=== PATIENT | female | born 1970 | race Caucasian/White ===

== ENCOUNTER → 2021-09-17 | Outpatient (CLI) | payer OTHER ==
[2021-09-17 14:37] LABS: Basophils # (A) 0.07 X 10*3/uL (0.00-0.10); Basophils % (A) 0.8 %; Eosinophils # (A) 0.22 X 10*3/uL (0.04-0.35); Eosinophils % (A) 2.5 %; HCT 46.2 % (37.2-46.3); Lymphocytes # (A) 2.96 X 10*3/uL (0.90-5.00); Lymphocytes % (A) 33.6 %; MCH 30.5 pg (27.0-32.0); MCHC 32.5 g/dL (32.0-37.0); MCV 93.9 fL (80.0-97.0); Mean Platelet Volume 10.4 fL (9.5-12.2); Monocytes # (A) 0.51 X 10*3/uL (0.20-1.00); Monocytes % (A) 5.8 %; Neutrophils # (A) 5.02 X 10*3/uL (1.80-7.70); Neutrophils % (A) 57.1 %; Platelet Count 374 X 10*3/uL (140-440); RBC 4.92 X 10*6/uL (4.10-5.20); RDW 13.6 % (11.5-14.5)
[2021-09-17 15:11] LABS: African American GFR (CKD) 106.8 (60.0-200.0); Albumin 4.6 g/dL (3.8-4.9); Albumin/Globulin Ratio 1.37 (1.60-3.17); Anion Gap 12.4 mmol/L (10.00-18.00); BUN/Creat Ratio 14.65 Ratio (12.00-20.00); Carbon Dioxide 19.4 mmol/L (20.0-27.5); Globulin 3.4 g/dL (1.6-3.3); Non-African American GFR(CKD) 92.1 (60.0-200.0); T4, Free (Free Thyroxine) 1.12 ng/dL (0.800-1.800); Total Bilirubin 0.2 mg/dL (0.30-1.20)
[2021-09-17 17:46] LABS: Erythrocyte Sedimentation Rate 7 mm/Hr (0-30)
[2021-09-17 18:31] LABS: Anti-Smith Ab Interp NEGATIVE (NEGATIVE); Cyclic Citrull Pep IgG Unit <0.5 U/mL; Cyclic Citrullinated Pep IgG NEGATIVE (NEGATIVE)
[2021-09-17 19:22] LABS: Appearance,CSF Clear; CSF Tube Number 4; Nucleated Cells, CSF 0 u/L (0-5); Red Blood Cell,CSF 0 u/L (0-10)
[2021-09-17 20:42] LABS: Total Protein,CSF 36 mg/dL (12-60)
== END | disposition home or self-care (01) ==
LOC: LABWHC1 09:08
PROVIDERS: ATTEND Psychiatry & Neurology Neurology
DX: M35.3 Polymyalgia rheumatica (principal); E55.9 Vitamin D deficiency, unspecified; E53.9 Vitamin B deficiency, unspecified; R41.3 Other amnesia; G43.909 Migraine, unspecified, not intractable, without status migrainosus; R90.82 White matter disease, unspecified
CPT/HCPCS: 36415; 80053; 82040; 82042; 82306; 82550; 82607; 82784; 83916; 84157; 84207; 84439; 84443; 84481; 85025; 85652; 86038; 86200; 86235; 87801; 89050

== ENCOUNTER → 2021-09-24 | Outpatient (CLI) | payer OTHER | END | disposition home or self-care (01) | LOC: LABWHC1 15:09 | PROVIDERS: ATTEND Psychiatry & Neurology Neurology | DX: I49.9 Cardiac arrhythmia, unspecified (principal) | CPT/HCPCS: 36415; 93005 ==

== ENCOUNTER → 2022-04-25 | Outpatient (CLI) | payer OTHER ==
--- NOTE | 2022-04-25 16:52 | CTL ---
EXAMINATION TYPE: CT Low Dose Lung DATE OF EXAM ORDERED: 04/25/2022 HISTORY: Z87.891 Personal hx nicotine dependence . Lung cancer screening CT DLP: 135.[address] CTDI: 4.0 mGy Automated exposure control for dose reduction was used. SCREENING VISIT: First screening visit. COMPARISON: None TECHNIQUE: Low dose computed tomography scan was performed through the chest at 1 mm thick sections a nd reconstructed images in multiple planes at 1 mm and [address] DIAGNOSTIC QUALITY: Satisfactory FINDINGS: LUNG NODULES: No concerning pulmonary nodules. LUNGS: COPD: Severity: None Fibrosis: Severity: None Lymph nodes: None. Other findings: No pleural effusion or pneumothorax. Patchy reticular opacities in the bilateral lowe r lobes and left upper lobe likely representing atelectasis. RIGHT PLEURAL SPACE: Effusion: None Calcification: None Thickening: None Pneumothorax: None LEFT PLEURAL SPACE: Effusion: None Calcification: None Thickening: None Pneumothorax: None HEART: Heart Size: Normal Coronary Calcification: None Pericardial Effusion: None OTHER FINDINGS: Upper abdomen: The liver is diffusely hypoattenuating. Bony thorax: None Supraclavicular region: None Other: None IMPRESSION: 1. No concerning pulmonary nodules. 2. Hepatic steatosis. CT LUNG RAD AND CT CHEST RECOMMENDATION: Lung-Rad 1 Negative: Continue annual screening with LDCT in 12 months. S Modifier (other clinically significant findings): None
== END | disposition home or self-care (01) ==
LOC: RADCTMAIN 15:57
PROVIDERS: ATTEND Internal Medicine
DX: Z12.2 Encounter for screening for malignant neoplasm of respiratory organs (principal); K76.0 Fatty (change of) liver, not elsewhere classified; Z87.891 Personal history of nicotine dependence
CPT/HCPCS: 71271

== ENCOUNTER → 2022-06-22 | Outpatient (CLI) | payer MEDICARE, OTHER ==
[2022-06-22 11:14] LABS: Basophils # (A) 0.1 k/uL (0-0.2); Basophils % (A) 1 %; Eosinophils # (A) 0.2 k/uL (0-0.7); Eosinophils % (A) 2 %; HCT 46.8 % (34.0-46.0); HGB 15.7 gm/dL (11.4-16.0); Lymphocytes # (A) 3.2 k/uL (1.0-4.8); Lymphocytes % (A) 33 %; MCH 31.9 pg (25.0-35.0); MCHC 33.6 g/dL (31.0-37.0); MCV 95.1 fL (80.0-100.0); Mean Platelet Volume 7.7; Monocytes # (A) 0.4 k/uL (0-1.0); Monocytes % (A) 4 %; Neutrophils # (A) 5.4 k/uL (1.3-7.7); Neutrophils % (A) 57 %; Platelet Count 382 k/uL (150-450); RBC 4.92 m/uL (3.80-5.40); RDW 13.5 % (11.5-15.5); WBC 9.5 k/uL (3.8-10.6)
[2022-06-22 11:24] LABS: Potassium 4.9 mmol/L (3.5-5.1)
== END | disposition home or self-care (01) ==
LOC: LABPAT 10:28
PROVIDERS: ATTEND Orthopaedic Surgery
DX: Z01.812 Encounter for preprocedural laboratory examination (principal); M23.92 Unspecified internal derangement of left knee
CPT/HCPCS: 80051; 85025; 93005

== ENCOUNTER 2022-07-04 10:07 | Day surgery (SDC) | payer MEDICARE, OTHER ==
[2022-06-24 13:18] VITALS: BMI 44.3
--- NOTE | 2022-07-04 00:46 | HP ---
HISTORY AND PHYSICAL Surgery is scheduled for 07/04/2022. HISTORY OF PRESENT ILLNESS: Alexandria Shannon is a 51-year-old patient seen with progressive left knee pain. We discussed options for treatment. She has post left knee arthroscopy. Consent was obtained. PAST MEDICAL HISTORY: Anxiety. PAST SURGICAL HISTORY: Knee arthroscopy, lumbar spine surgery. DAILY MEDICATIONS: None. SOCIAL HISTORY: She denies tobacco use. PHYSICAL EVALUATION OF THE LEFT KNEE: Range of motion is -3/4 to 115. Tenderness along the medial and lateral joint lines. Positive medial Cleveland's. Positive lateral Cleveland's. Ligaments are stable. Hip rotation is without pain. Distal neurovascular exam is intact. RADIOGRAPHS: Left knee radiographs reveal some mild medial compartment osteoarthritis. MRI of left knee revealed a complex medial meniscal tear. IMPRESSION: Internal derangement of left knee with medial meniscal tear. PLAN: Left knee arthroscopy with partial medial meniscectomy and debridement. MMODL / IJN: [id number] /
[~2022-07-04 10:07] MED LIST: ceFAZolin 3 GM in SODIUM CHLORIDE 0.9% 100 ML IVPB PRN
[2022-07-04] MEDS ORDERED: LACTATED RINGERS 1,000 ML IV SCH (10:55)
[2022-07-04] MEDS ORDERED: ONDANSETRON 4 MG/2 ML VIAL IVP ONE (10:55)
[2022-07-04] MEDS ORDERED: HYDROmorphone 0.5 MG/0.5 ML SYRINGE IVP PRN (10:55)
[2022-07-04] MEDS ORDERED: SCOPOLAMINE 1 MG/72 HR PATCH TRANSDERM ONE (10:55)
[2022-07-04] MEDS ORDERED: DEXAMETHASONE SOD PHOSPHATE 4 MG/ML 1 ML VIAL IV ONE (10:55)
[2022-07-04] MEDS ORDERED: LIDOCAINE 1% (10MG/ML) FOR IV START INTRADERMA PRN (10:55)
[2022-07-04] MEDS ORDERED: fentaNYL (PF) 50 MCG/ML 2 ML AMP ONE (11:43)
[2022-07-04] MEDS ORDERED: LIDOCAINE 2% INJ 20 MG/ML (2 ML VIAL) ONE (11:43)
[2022-07-04] MEDS ORDERED: ceFAZolin 1,000 MG VIAL ONE (11:43)
[2022-07-04] MEDS ORDERED: SODIUM CHLORIDE 0.9% 100 ML BAG ONE (11:43)
[2022-07-04] MEDS ORDERED: SUCCINYLCHOLINE CHLORIDE 200 MG/10 ML VIAL IV ONE (11:43)
[2022-07-04] MEDS ORDERED: PROPOFOL 10 MG/ML 20 ML VIAL IV ONE (11:43)
[2022-07-04] MEDS ORDERED: MIDAZOLAM 2 MG/2 ML VIAL ONE (11:43)
[2022-07-04] MEDS ORDERED: BUPIVACAINE (PF) 0.25% 30 ML VIAL INTRAARTIC ONE (12:08)
[2022-07-04 12:31] VITALS: RESP 16; TEMP 97
--- NOTE | 2022-07-04 12:34 | P.OP ---
Date of Procedure: 07/04/22 Preoperative Diagnosis: Internal derangement left knee Postoperative Diagnosis: 1. Tear medial and lateral meniscus left knee 2. Grade 4 chondromalacia femoral sulcus left knee 3. Reactive synovitis medial, lateral and suprapatellar compartments left knee Procedure(s) Performed: 1. Arthroscopic partial medial and lateral meniscectomy left knee 2. Arthroscopic chondroplasty femoral sulcus left knee 3. Arthroscopic partial synovectomy medial, lateral and suprapatellar compartments left knee Anesthesia: GETA, local Surgeon: Haile Fernandez Estimated Blood Loss (ml): 7 Pathology: none sent Condition: stable Disposition: PACU Indications for Procedure: 51-year-old patient seen with progressive left knee pain. After having treatment options discussed, she elected to proceed with arthroscopy. Operative Findings: see description of procedure Description of Procedure: Patient was taken to the operative suite. Patient underwent a general anesthetic by the department of anesthesia. Patient was given preoperative antibiotics. The left lower extremity was placed in a well-padded arthroscopic leg galvan. The left leg was prepped and draped in the normal sterile orthopedic fashion. A lateral parapatellar and suprapatellar incision was made. Trochars were inserted. Arthroscopy was initiated. Suprapatellar pouch revealed diffuse thick reactive synovitis. The patellofemoral joint appeared to articulate congruently. There there was grade 3/4 chondromalacia femoral sulcus with some large peripheral osteochondral tears present. The scope was guided into the medial gutter. No loose bodies or plica were identified. The scope was then guided into the medial compartment. A medial parapatellar incision was made. Trocar inserted followed by probe. There was a complex tear posterior horn medial meniscus. There were grade 2/3 chondromalacia changes of the medial femoral condyle and reactive synovitis anteriorly. I performed a partial medial meniscectomy getting down to stable meniscal tissue. I performed a partial synovectomy. The residual meniscus was stable. There was good decompression of synovitis. The area of grade 2/3 chondromalacia medial femoral condyle. Stable. Scope and probe were then guided into the intercondylar notch. Cruciates were identified, probed and found to be stable. The scope and probe were then guided into lateral compartment. There was a small radial tear mid body lateral meniscus. There were grade 1 chondromalacia changes lateral tibial plateau and some thick reactive synovitis anteriorly. I performed a partial lateral meniscectomy. I performed a partial synovectomy. The residual meniscus was stable. There was good decompression of synovitis. The scope was in guided back into the suprapatellar compartment. I used a motorized shaver into the super patellar compartment. I debrided some piecemeal fragments of meniscus I encountered. I then performed a chondroplasty of the femoral sulcus getting down to some stable osteochondral tissue. Shaver was removed. There was good decompression of synovitis. There were areas of grade 4 chondromalacia central portion of the femoral sulcus. The peripheral osteochondral surface was stable. I noted grade 3/4 chondromalacia. I took one more look around the entire knee, no residual debris. Instruments were now removed from the joint. The joint was infiltrated with .25% Marcaine. Steri-Strips were applied to the portal sites. Sterile dressings were applied. The patient was placed into a CHAN hose. No tourniquet was utilized. The patient was awakened, transferred to a bed and [facility] to recovery stable satisfactory condition.
--- NOTE | 2022-07-04 13:32 | P.OP ---
Date of Procedure: 07/04/22 Preoperative Diagnosis: Internal derangement left knee Postoperative Diagnosis: 1. Tear medial and lateral meniscus left knee 2. Grade 3/4 chondromalacia femoral sulcus left knee 3. Reactive synovitis medial, lateral and suprapatellar compartments left knee Procedure(s) Performed: 1. Arthroscopic partial medial and lateral meniscectomy left knee 2. Arthroscopic microfracture femoral sulcus left knee 3. Arthroscopic partial synovectomy medial, lateral and suprapatellar compartments left knee Anesthesia: WILEYA, local Surgeon: Haile Fernandez Estimated Blood Loss (ml): 10 Pathology: none sent Condition: stable Disposition: PACU Indications for Procedure: 51-year-old patient seen with progressive left knee pain. After treatment options were discussed, she elected to proceed with arthroscopy. Operative Findings: see description of procedure Description of Procedure: Patient was taken to the operative suite. Patient underwent a general anesthetic by the department of anesthesia. Patient was given preoperative antibiotics. The left lower extremity was placed in a well-padded arthroscopic leg galvan. The left leg was prepped and draped in the normal sterile orthopedic fashion. A lateral parapatellar and suprapatellar incision was made. Trochars were inserted. Arthroscopy was initiated. Suprapatellar pouch revealed diffuse thick reactive synovitis. The patellofemoral joint appeared articulate congruently. There was grade 2 chondromalacia patella and grade 3/4 chondromalacia of the femoral sulcus. The scope was guided into the medial gutter. No loose bodies or plica were identified. The scope was then guided into the medial compartment. A medial parapatellar incision was made. Trocar inserted followed by probe. There was a radial tear posterior horn medial meniscus. There was evidence of previous partial anterior medial meniscectomy. There were grade 2, she changes within the medial compartment withtears. There was some thick reactive synovitis anteriorly. I performed a partial medial meniscectomy getting down to some stable meniscal tissue. I performed a partial synovectomy decompressing the reactive synovitis anteriorly. The residual meniscus was stable. There was good decompression of the synovitis. Scope and probe were then guided into the intercondylar notch. Cruciates were identified, probed and found to be stable. The scope and probe were then guided into lateral compartment. Was a small radial tear anterior horn lateral meniscus. There was grade 1, changes of the lateral compartment without tears. There was some thick reactive some-itis anteriorly. I performed a partial lateral meniscectomy. I performed a partial synovectomy. The residual meniscus was stable. There was good decompression of the synovitis. The scope was in guided back into the suprapatellar compartment. I introduced a motorized shaver into the super patellar compartment. I debrided some piecemeal fragments of meniscus I encountered. I performed a chondroplasty the femoral sulcus and a partial synovectomy. I did note an area of grade 4 chondromalacia central femoral sulcus. I introduced a microfracture awl and I performed a microfracture to that area penetrating the bone with resultant bleeding at the microfracture site. The residual osteochondral surface was again probed and found to be stable. There was good decompression of the synovitis. I took one more look on the entire knee, no residual debris. Instruments were now removed from the joint. The joint was infiltrated with .25% Marcaine. Steri-Strips were applied to the portal sites. Sterile dressings were applied. The patient was placed into a CHAN hose. No tourniquet was utilized. The patient was awakened, transferred to a bed and taken to recovery stable satisfactory condition.
[2022-07-04] MEDS ORDERED: HYDROcodone/APAP 5-325MG 1 EACH TAB PO ONE (13:38)
[2022-07-04] MEDS ORDERED: HYDROcodone/APAP 5-325MG 1 EACH TAB ONE (13:39)
[2022-07-04 13:50] VITALS: BP 129/82; PULSE 88
== END 2022-07-04 14:07 | disposition home or self-care (01) ==
LOC: OR 10:07
PROVIDERS: ATTEND Orthopaedic Surgery
DX: M23.304 Other meniscus derangements, unspecified medial meniscus, left knee (principal); M23.301 Other meniscus derangements, unspecified lateral meniscus, left knee; M17.12 Unilateral primary osteoarthritis, left knee; F41.9 Anxiety disorder, unspecified; G47.33 Obstructive sleep apnea (adult) (pediatric); E66.01 Morbid (severe) obesity due to excess calories; Z68.45 Body mass index [BMI] 70 or greater, adult; G43.909 Migraine, unspecified, not intractable, without status migrainosus; Z98.890 Other specified postprocedural states; Z79.899 Other long term (current) drug therapy
CPT/HCPCS: 29880; J2250; J0330; J1100; J2405; J0690; J3010; J2704; J1170; J2001

== ENCOUNTER 2022-07-04 16:11 | Emergency (ER) | payer MEDICARE, OTHER ==
[2022-07-04 16:42] VITALS: RESP 18
[2022-07-04] MEDS ORDERED: LIDOCAINE 1% INJ 10MG/ML (30 ML VIAL-PF) SQ ONE (16:46)
--- NOTE | 2022-07-04 17:11 | ED ---
General Adult HPI - General Chief complaint: Recheck/Abnormal Lab/Rx Stated complaint: Post Op Complications, Bleeding from knee Time Seen by Provider: 07/04/22 16:33 Source: patient Mode of arrival: wheelchair Limitations: no limitations - History of Present Illness Initial comments: Patient is a 51-year-old female who had left knee arthroscopy performed today by Dr. Fernandez, presenting with chief complaint of bleeding from the surgical site. Patient states that immediately following surgery, continued bleeding was noted, she states that the wound was dressed and she was discharged home. Patient states that when she got home she noticed the bleeding increasing, she was unable to control it with pressure at home and was told to report to the ER after calling her doctor's office. On presentation triage nurse reports that blood was running down the patient's leg and there were large clots present. She denies any dizziness, nausea, vomiting, chest pain, difficulty breathing, numbness, tingling, weakness. - Related Data Home Medications Medication Instructions Recorded Confirmed Cyclobenzaprine [Flexeril] 10 mg PO TID PRN 06/24/22 07/04/22 DULoxetine HCL 40 mg PO HS 06/24/22 07/04/22 DULoxetine HCL [Cymbalta] 20 mg PO QAM 06/24/22 07/04/22 Hydrocodone/Acetaminophen 1 tab PO BID PRN 06/24/22 07/04/22 [Hydrocodone/Acetaminophen 5-325] Meclizine HCl [Antivert] 25 mg PO TID BETWEEN MEALS PRN 06/24/22 07/04/22 Topiramate [Topamax] 50 mg PO BID 06/24/22 07/04/22 Ubrogepant [Ubrelvy] 50 mg PO DIRECTED PRN 06/24/22 07/04/22 calcium polycarbophiL [Fibercon] 625 mg PO DAILY 06/24/22 07/04/22 Allergies Allergy/AdvReac Type Severity Reaction Status Date / Time nickel Allergy Rash/Hives Verified 07/04/22 16:36 Review of Systems ROS Statement: Those systems with pertinent positive or pertinent negative responses have been documented in the HPI. ROS Other: All systems not noted in ROS Statement are negative. Past Medical History Past Medical History: No Reported History Past Surgical History: Joint Replacement, Orthopedic Surgery Past Psychological History: No Psychological Hx Reported Smoking Status: Current every day smoker, Vaper Past Alcohol Use History: None Reported Past Drug Use History: None Reported General Exam Limitations: no limitations General appearance: alert, in no apparent distress Head exam: Present: atraumatic, normocephalic, normal inspection Eye exam: Present: normal appearance Neck exam: Present: normal inspection Respiratory exam: Present: normal lung sounds bilaterally. Absent: respiratory distress, wheezes, rales, rhonchi, stridor Cardiovascular Exam: Present: normal rhythm, tachycardia, normal heart sounds. Absent: systolic murmur, diastolic murmur, rubs, gallop, clicks Extremities exam: Present: other (Bleeding from to 1 cm incisions to the left kn ee post arthroscopy) Neurological exam: Present: alert, oriented X3, CN II-XII intact Psychiatric exam: Present: normal affect, normal mood Course Vital Signs 07/04/22 07/04/22 07/04/22 16:33 16:40 18:22 Temperature 98 F 98.0 F Pulse Rate 138 H 114 H 120 H Respiratory 22 18 18 Rate Blood Pressure 150/67 132/82 159/83 O2 Sat by Pulse 97 95 98 Oximetry Medical Decision Making - Medical Decision Making Patient is a 51-year-old female presenting for evaluation of bleeding after left knee arthroscopy today performed by Dr. Fernandez. On initial presentation patient was actively bleeding, after 10 minutes of pressure bleeding subsided. Patient was evaluated by Sandeep Leach PAC with [facility], he placed sutures and redress the wound. He provided patient with further education and follow-up instructions. On reassessment patient has no further questions and bleeding has not restarted. Follow-up with PCP. Report back to ER with any new or worsening symptoms. Discussed return parameters and answered all questions. Patient conveyed verbal understanding and agreed to the plan. I discussed this case in detail with my attending Dr. White Disposition Clinical Impression: Post-op bleeding Disposition: HOME SELF-CARE Condition: Good Instructions (If sedation given, give patient instructions): Postoperative Bleeding (ED) Additional Instructions: Follow-up with your surgeon. Report back to ER with any new or worsening symptoms. Follow-up postoperative instructions per your surgical team. Is patient prescribed a controlled substance at d/c from ED?: No Referrals: Rogelio Mendez MD [Primary Care Provider] - 1-2 days Haile Fernandez DO [Doctor of Osteopathic Medicine] - 1-2 days Time of Disposition: 17:42
[2022-07-04 18:24] VITALS: BP 159/83; PULSE 120; TEMP 98
== END 2022-07-04 18:23 | disposition home or self-care (01) ==
LOC: EC 16:11
DX: G97.52 Postprocedural hemorrhage of a nervous system organ or structure following other procedure (principal); F17.200 Nicotine dependence, unspecified, uncomplicated
CPT/HCPCS: 99283; J2001

== ENCOUNTER → 2022-11-11 | Outpatient (CLI) | payer MEDICARE, OTHER ==
[2022-11-11 22:33] LABS: Basophils # (A) 0.06 X 10*3/uL (0.00-0.10); Basophils % (A) 0.8 %; Eosinophils # (A) 0.16 X 10*3/uL (0.04-0.35); HCT 48.5 % (37.2-46.3); HGB 15.4 g/dL (12.0-15.0); Immature Grans, Automated 0.3 %; Lymphocytes # (A) 2.92 X 10*3/uL (0.90-5.00); Lymphocytes % (A) 37.2 %; MCH 30.1 pg (27.0-32.0); MCHC 31.8 g/dL (32.0-37.0); MCV 94.9 fL (80.0-97.0); Mean Platelet Volume 10.3 fL (9.5-12.2); Monocytes # (A) 0.52 X 10*3/uL (0.20-1.00); Monocytes % (A) 6.6 %; NRBC Per 100 WBC 0 /100 WBCS (0.0-0.0); Neutrophils # (A) 4.16 X 10*3/uL (1.80-7.70); Neutrophils % (A) 53.1 %; Platelet Count 377 X 10*3/uL (140-440); RBC 5.11 X 10*6/uL (4.10-5.20); RDW 14.4 % (11.5-14.5); WBC 7.84 X 10*3/uL (4.50-10.00)
[2022-11-11 23:49] LABS: Anion Gap 10.1 mmol/L (10.00-18.00); Carbon Dioxide 24.2 mmol/L (20.0-27.5); Potassium 4.6 mmol/L (3.5-5.5)
== END | disposition home or self-care (01) ==
LOC: LABPAT 14:00
PROVIDERS: ATTEND Orthopaedic Surgery
DX: Z01.812 Encounter for preprocedural laboratory examination (principal); M23.91 Unspecified internal derangement of right knee
CPT/HCPCS: 80051; 85025

== ENCOUNTER 2022-11-21 12:23 | Day surgery (SDC) | payer MEDICARE, OTHER ==
--- NOTE | 2022-11-20 22:14 | HP ---
HISTORY AND PHYSICAL DATE OF SURGERY: 11/21/2022. HISTORY OF PRESENT ILLNESS: Alexandria Shannon is a 52-year-old patient seen with progressive right knee pain. We discussed options for treatment. She elected to proceed with right knee arthroscopy. Consent was obtained. PAST MEDICAL HISTORY: Depression, fibromyalgia. PAST SURGICAL HISTORY: Knee arthroscopy, lumbar spine surgery. DAILY MEDICATIONS: 1. Topamax. 2. Flexeril. ALLERGIES: None. SOCIAL HISTORY: Denies tobacco use. PHYSICAL EXAMINATION: Evaluation of right knee, range of motion is -120 degrees. She has tenderness along the medial joint line with positive medial Cleveland's. Her ligaments are stable. Hip rotation is without pain. Distal neurovascular exam is intact. RADIOGRAPHS: Right knee radiographs revealed some mild osteoarthritic changes. Right knee MRI revealed medial meniscal tear. IMPRESSION: Internal derangement of right knee with medial meniscal tear. PLAN: Right knee arthroscopy with partial medial meniscectomy and debridement. MMODL / IJN: [id number] /
[~2022-11-21 12:23] MED LIST changes: +DEXAMETHASONE SOD PHOSPHATE 4 MG/ML 1 ML VIAL IV ONE; +HYDROmorphone 0.5 MG/0.5 ML SYRINGE IVP PRN; +LACTATED RINGERS 1,000 ML IV SCH; +LIDOCAINE 1% (10MG/ML) FOR IV START INTRADERMA PRN; +ONDANSETRON 4 MG/2 ML VIAL IVP PRN; -ceFAZolin 3 GM in SODIUM CHLORIDE 0.9% 100 ML IVPB PRN
[2022-11-21] MEDS ORDERED: SCOPOLAMINE 1 MG/72 HR PATCH TRANSDERM ONE (13:22)
[2022-11-21] MEDS ORDERED: MIDAZOLAM 2 MG/2 ML VIAL IVP ONE (13:35)
[2022-11-21] MEDS: ceFAZolin 3 GM in SODIUM CHLORIDE 0.9% 100 ML IVPB PRN ×2 (14:43→14:50)
[2022-11-21] MEDS ORDERED: BUPIVACAINE (PF) 0.25% 30 ML VIAL SQ ONE ×2 (14:43→15:17)
[2022-11-21] MEDS ORDERED: fentaNYL (PF) 50 MCG/ML 2 ML AMP ONE (14:45)
[2022-11-21] MEDS ORDERED: SUCCINYLCHOLINE CHLORIDE 200 MG/10 ML VIAL IV ONE (14:45)
[2022-11-21] MEDS ORDERED: MIDAZOLAM 2 MG/2 ML VIAL ONE (14:45)
[2022-11-21] MEDS ORDERED: PROPOFOL 10 MG/ML 20 ML VIAL IV ONE (14:45)
[2022-11-21] MEDS ORDERED: LIDOCAINE 2% INJ 20 MG/ML (2 ML VIAL) ONE (14:45)
[2022-11-21] MEDS ORDERED: HYDROmorphone (PF) 1 MG/ML ONE (14:45)
--- NOTE | 2022-11-21 15:35 | P.OP ---
Date of Procedure: 11/21/22 Preoperative Diagnosis: Internal derangement right knee Postoperative Diagnosis: 1. Tear medial and lateral meniscus right knee 2. Grade 4 chondromalacia femoral sulcus right knee 3. Grade 2 chondromalacia medial femoral condyle right knee 4. Reactive synovitis medial, lateral and suprapatellar compartments right knee Procedure(s) Performed: 1. Arthroscopic partial medial and lateral meniscectomy right knee 2. Arthroscopic microfracture femoral sulcus right knee 3. Arthroscopic chondroplasty medial femoral condyle right knee 4. Arthroscopic partial synovectomy medial, lateral and suprapatellar compartments right knee Anesthesia: GETA Surgeon: Haile Fernandez Estimated Blood Loss (ml): 6 Pathology: none sent Condition: stable Disposition: PACU Indications for Procedure: 52-year-old patient seen with progressive right knee pain. After having treatment options discussed, she elected to proceed with arthroscopy. Operative Findings: See description of procedure Description of Procedure: Patient was taken to the operative suite. Patient underwent a general anesthetic by the department of anesthesia. Patient was given preoperative antibiotics. The right lower extremity was placed in a well-padded arthroscopic leg galvan. The right leg was prepped and draped in the normal sterile orthopedic fashion. A lateral parapatellar and suprapatellar incision was made. Trochars were inserted. Arthroscopy was initiated. Suprapatellar pouch revealed diffuse thick reactive synovitis. The patellofemoral joint appeared to articulate congruently. There was grade 2 chondromalacia of the patella without significant osteochondral tears being present. I noted grade 3/4 chondromalacia of the femoral sulcus with some osteochondral flap tears there. The scope was guided into the medial gutter. No loose bodies or plica were identified. The scope was then guided into the medial compartment. A medial parapatellar incision was made. Trocar inserted followed by probe. There was a radial tear posterior horn medial meniscus. There were grade 2 chondromalacia changes of the medial femoral condyle without osteochondral flap tears present. There was some thick reactive synovitis anteriorly. I performed a partial medial meniscectomy getting down to stable meniscal tissue. I performed a chondroplasty of the medial femoral condyle getting down to stable osteochondral tissue. I performed a partial synovectomy decompressing the reactive synovitis. The residual meniscus was stable. There was good decompression of the synovitis. The residual meniscus was stable. Scope and probe were then guided into the intercondylar notch. Cruciates were identified, probed and found to be stable. The scope and probe were then guided into lateral compartment. There was a radial tear posterior horn lateral meniscus. There were no significant chondromalacia changes involving lateral compartment. There was some thick reactive synovitis anteriorly. I performed a partial lateral meniscectomy getting down to stable meniscal tissue. I performed a partial synovectomy decompressing the reactive synovitis. The residual meniscus was stable. There was good decompression of the synovitis. The scope was in guided back into the suprapatellar compartment. I introduced the motorized shaver into the suprapatellar compartment. I performed a chondroplasty of the femoral sulcus and patella. I performed a partial synovectomy. The residual osteochondral surface of patella was stable. I did note an area of exposed bone along the medial femoral sulcus measuring approximately 1.5 cm. I introduced a microfracture awl. I performed a microfracture to that area penetrating the bone with resultant bleeding at the microfracture site. The area was probed and was found to be stable. There was good decompression of synovitis in the suprapatellar compartment. I took one more look around the entire knee, no residual debris. Instruments were now removed from the joint. The joint was infiltrated with .25% Marcaine. Steri-Strips were applied to the portal sites. Sterile dressings were applied. The patient was placed into a CHAN hose. No tourniquet was utilized. The patient was awakened, transferred to a bed and taken to recovery stable satisfactory condition.
[2022-11-21 15:37] VITALS: RESP 16; TEMP 97.8
[2022-11-21] MEDS ORDERED: HYDROcodone/APAP 5-325MG 1 EACH TAB ONE (16:30)
[2022-11-21] MEDS ORDERED: HYDROcodone/APAP 5-325MG 1 EACH TAB PO ONE (16:31)
[2022-11-21 16:44] VITALS: BP 129/82; PULSE 89
== END 2022-11-21 16:57 | disposition home or self-care (01) ==
LOC: OR 12:23
PROVIDERS: ATTEND Orthopaedic Surgery
DX: S83.241A Other tear of medial meniscus, current injury, right knee, initial encounter (principal); S83.281A Other tear of lateral meniscus, current injury, right knee, initial encounter; X58.XXXA Exposure to other specified factors, initial encounter; M65.861 Other synovitis and tenosynovitis, right lower leg; M17.11 Unilateral primary osteoarthritis, right knee; M94.261 Chondromalacia, right knee; F32.A Depression, unspecified; M79.7 Fibromyalgia; G47.33 Obstructive sleep apnea (adult) (pediatric); F17.290 Nicotine dependence, other tobacco product, uncomplicated; K21.9 Gastro-esophageal reflux disease without esophagitis; Z79.899 Other long term (current) drug therapy; Z98.890 Other specified postprocedural states
CPT/HCPCS: 29880; 29879; J2250; J0330; J1100; J0690; J2405; J3010; J1170 ×2; J2704; J2001

== ENCOUNTER → 2023-01-07 | Outpatient (CLI) | payer MEDICARE, OTHER | END | disposition home or self-care (01) | LOC: LABWHC1 15:00 | PROVIDERS: ATTEND Psychiatry & Neurology Neurology | DX: I49.9 Cardiac arrhythmia, unspecified (principal) | CPT/HCPCS: 36415; 93005 ==

== ENCOUNTER 2023-02-28 12:56 | Day surgery (SDC) | payer MEDICARE, OTHER ==
[2023-02-21 12:43] VITALS: BMI 45.1
[2023-02-28] MEDS ORDERED: LACTATED RINGERS 1,000 ML IV ONE (13:57)
[2023-02-28] MEDS ORDERED: LACTATED RINGERS 1,000 ML IV SCH (13:57)
[2023-02-28 14:14] VITALS: TEMP 97.3
[2023-02-28] MEDS ORDERED: PROPOFOL 10 MG/ML 20 ML VIAL IV ONE (15:01)
--- NOTE | 2023-02-28 15:15 | P.PCN ---
Date of Procedure: 02/28/23 Procedure(s) Performed: BRIEF HISTORY: Patient is a 52-year-old, pleasant, white female scheduled for an upper endoscopy as a part of evaluation of intermittent dysphagia to solids for the last 3 months duration.. She denies any heartburn. No odynophagia. PROCEDURE PERFORMED: Esophagogastroduodenoscopy with biopsy. PREOPERATIVE DIAGNOSIS: Intermittent dysphagia to solids. IV sedation per anesthesia. PROCEDURE: After informed consent was obtained, the patient was brought into the endoscopy unit. IV sedation was administered by Anesthesia under continuous monitoring. Initially the Olympus GIF-140 video endoscope was inserted into the mouth. Esophagus intubated without any difficulty. It was gradually advanced into the stomach and duodenum and carefully examined. The bulb and the second part of the duodenum appeared normal. The scope at this time was withdrawn to the stomach, adequately insufflated with air, and upon careful examination, mucosa of the antrum had mild gastritis and biopsies were done from this area., body, cardia and the fundus appeared normal. The scope was then withdrawn into the esophagus. The GE junction was located at 39 cm from the incisors. There were 2 superficial erosions in the distal esophagus consistent with LA grade A reflux esophagitis.The rest of esophagus appeared normal and the patient tolerated the procedure well. Biopsies were also done from the distal esophagus to rule out years of age esophagitis. IMPRESSION: 1. Normal-appearing esophagus with no evidence of esophageal stricture but mild distal esophagitis consistent with LA grade a reflux esophagitis. 2. Mild antral gastritis. RECOMMENDATIONS: The findings of this examination were discussed with the patient as well as her family. She was advised to follow with the biopsy results. Trial of Prilosec 20 mg daily for 6 weeks..
[2023-02-28 15:54] VITALS: BP 103/71; PULSE 77; RESP 20
== END 2023-02-28 16:15 | disposition home or self-care (01) ==
LOC: ORWHC2ENDO 12:56
PROVIDERS: ATTEND Internal Medicine Gastroenterology
DX: K29.50 Unspecified chronic gastritis without bleeding (principal); K20.0 Eosinophilic esophagitis; K21.9 Gastro-esophageal reflux disease without esophagitis; G47.33 Obstructive sleep apnea (adult) (pediatric); M79.7 Fibromyalgia; F41.9 Anxiety disorder, unspecified; F32.A Depression, unspecified; F43.10 Post-traumatic stress disorder, unspecified; G35 Multiple sclerosis; Z79.899 Other long term (current) drug therapy; Z88.8 Allergy status to other drugs, medicaments and biological substances
CPT/HCPCS: 43239; J2704; 88305

== ENCOUNTER → 2023-03-11 | Outpatient (CLI) | payer OTHER ==
[2023-03-11 20:37] LABS: Basophils # (A) 0.06 X 10*3/uL (0.00-0.10); Basophils % (A) 0.7 %; Eosinophils % (A) 1.2 %; HCT 51.2 % (37.2-46.3); HGB 17.1 d/dL (12.0-15.0); Lymphocytes # (A) 2.72 X 10*3/uL (0.90-5.00); Lymphocytes % (A) 31.9 %; MCH 30.9 pg (27.0-32.0); MCHC 33.4 d/dL (32.0-37.0); MCV 92.6 FL (80.0-97.0); Mean Platelet Volume 10.2 FL (9.5-12.2); Monocytes # (A) 0.43 X 10*3/uL (0.20-1.00); NRBC Per 100 WBC 0 X 10*3/uL (0.00-0.01); Neutrophils # (A) 5.18 X 10*3/uL (1.80-7.70); Neutrophils % (A) 60.8 %; Platelet Count 408 X 10*3/uL (140-440); RBC 5.53 X 10*6/uL (4.10-5.20); RDW 13.4 % (11.5-14.5); WBC 8.52 X 10*3/uL (4.50-10.00)
[2023-03-11 20:42] LABS: Hepatitis A Antibody IgM Nonreactive; Hepatitis B Core IgM Nonreactive; Hepatitis B Surface Antigen Nonreactive; Hepatitis C IgG Antibody Nonreactive
[2023-03-11 21:33] LABS: ALT 44 U/L (8-44); AST 33 U/L (13-35); Albumin 4.8 d/dL (3.8-4.9); Albumin/Globulin Ratio 1.41 Ratio (1.60-3.17); Alkaline Phosphatase 100 U/L (41-126); BUN/Creat Ratio 14.78 Ratio (12.00-20.00); Blood Urea Nitrogen 13.3 mg/dL (9.0-27.0); Calcium 10.3 mg/dL (8.7-10.3); Carbon Dioxide 19.3 mmol/L (21.6-31.8); Chloride 104 mmol/L (96-109); Globulin 3.4 d/dL (1.6-3.3); Glucose 103 mg/dL (70-110); Potassium 4.3 mmol/L (3.5-5.5); Rheumatoid Factor, Qnt <15 IU/mL (0-15); Sodium 138 mmol/L (135-145); Total Bilirubin 0.2 mg/dL (0.3-1.2); Total Protein 8.2 d/dL (6.2-8.2)
[2023-03-11 21:34] LABS: Erythrocyte Sedimentation Rate 11 mm/Hr (0-30)
[2023-03-12 15:56] LABS: V. zoster Source Blood - Plasma
== END | disposition home or self-care (01) ==
LOC: LABWHC1 14:49
PROVIDERS: ATTEND Nurse Practitioner Acute Care
DX: E55.9 Vitamin D deficiency, unspecified (principal); E53.9 Vitamin B deficiency, unspecified; H53.8 Other visual disturbances; R41.3 Other amnesia; R20.8 Other disturbances of skin sensation; R90.82 White matter disease, unspecified; R42 Dizziness and giddiness
CPT/HCPCS: 36415; 80053; 80074; 82306; 82607; 84207; 85025; 85652; 86038; 86140; 86431; 87798

== ENCOUNTER 2023-05-21 13:00 | Outpatient (CLI) | payer MEDICARE, OTHER ==
--- NOTE | 2023-06-02 08:35 | SLS ---
SLEEP STUDY STUDY PERFORMED: Home sleep study. This is a 52-year-old female patient with symptoms of chronic sleepiness and fatigue related to combination of obstructive sleep apnea in addition to her comorbidities which include multiple sclerosis and fibromyalgia. The patient has been diagnosed as having obstructive sleep apnea. She has been treated with CPAP therapy in the past. She was being treated with a [employer] CPAP unit at a pressure of 8 cm of water. During her last evaluation, treatment was ineffective and the patient was switched to an APAP mode, pressures of 5-15 cm of water, and she was offered an AirFit N30i small size mask. This study was done to reestablish diagnosis, and the patient was also interested in updating her CPAP unit. PERTINENT PHYSICAL FINDINGS: BMI is 46.2 consistent with morbid obesity. TECHNICAL DESCRIPTION: The patient utilized the idemama to complete this type 3 home sleep study. Total recording duration was 9 hours and 11 minutes. The study started at 7:50 p.m. and ended at 5:01 a.m. This was an adequate study as the patient had a total of 8 hours and 58 minutes of flow monitoring and 9 hours and 1 minute of oxygen saturation monitoring. RESULTS: Respiratory count showed a total of 78 obstructive hypopneas and 6 obstructive apneas, and the patient's AHI was 9.4. OXYGENATION ANALYSIS: This patient spent 9 minutes of sleep time below pulse ox of 88% with a minimum pulse ox of 79%. CARDIAC SUMMARY: Average heart rate was 80, minimum heart rate was 67, maximum heart rate was 116. IMPRESSION: 1. Mild obstructive sleep apnea with an AHI of 9.4. The patient has responded to CPAP therapy in the past. 2. Fibromyalgia. 3. Multiple sclerosis. 4. Chronic hypersomnia/sleepiness. 5. Migraines. 6. Posttraumatic stress disorder. 7. Depression. 8. Degenerative arthritis. 9. Steatosis of the liver. 10.Obesity with a body mass index of 46.2. PLAN: We will offer an APAP unit for this patient with settings of 5/15 cm of water. We will offer the patient an AirFit N30i small size nasal mask. Encouraged weight loss. Optimize sleep hygiene measures. Treat comorbidities. See her back in followup for a compliancy check in 30 to 90 days. MMODL / IJN: [id number] /
== END 2023-05-22 15:00 | disposition home or self-care (01) ==
LOC: 3 N SLEEP 13:00
PROVIDERS: ATTEND Internal Medicine Critical Care Medicine
DX: G47.33 Obstructive sleep apnea (adult) (pediatric) (principal); M79.7 Fibromyalgia; G35 Multiple sclerosis; Z91.048 Other nonmedicinal substance allergy status

== ENCOUNTER → 2023-06-12 | Outpatient (CLI) | payer MEDICARE, OTHER | END | disposition home or self-care (01) | LOC: LABPAT 16:02 | PROVIDERS: ATTEND Orthopaedic Surgery | DX: Z01.812 Encounter for preprocedural laboratory examination (principal); M17.12 Unilateral primary osteoarthritis, left knee; Z22.322 Carrier or suspected carrier of Methicillin resistant Staphylococcus aureus | CPT/HCPCS: 87070 ==

== ENCOUNTER 2023-07-14 12:38 | Observation (INO) | payer MEDICARE, OTHER ==
[2023-07-08 13:11] VITALS: BMI 43.7
--- NOTE | 2023-07-13 12:49 | HP ---
HISTORY AND PHYSICAL DATE OF SURGERY: 07/14/2023. HISTORY OF PRESENT ILLNESS: Alexandria Shannon is a 52-year-old patient, seen with symptomatic left knee osteoarthritis, failing conservative treatment measures. Options discussed. She elected to proceed with left total knee arthroplasty. Consents obtained. Medical clearance provided by Dr. Mendez. PAST MEDICAL HISTORY: Anxiety. PAST SURGICAL HISTORY: Knee arthroscopy, lumbar spine surgery. DAILY MEDICATIONS: 1. [place]. 2. Duloxetine. 3. Emgality. ALLERGIES: None. SOCIAL HISTORY: She denies tobacco use. PHYSICAL EVALUATION OF THE LEFT KNEE: Range of motion is -2 to 130 degrees. Tenderness medial joint line. Crepitance along the medial patellofemoral compartments with range of motion. Pain with patellofemoral compression. Ligaments stable. Hip rotation without pain. Distal neurovascular exam is intact. IMAGING STUDIES: Radiographs of the left knee revealed severe osteoarthritic changes. IMPRESSION: Left knee osteoarthritis. PLAN: Left total knee arthroplasty. MMODL / IJN: [id number] /
[~2023-07-14 12:38] MED LIST changes: +ACETAMINOPHEN TAB 500 MG TAB PO PRN; -HYDROmorphone 0.5 MG/0.5 ML SYRINGE IVP PRN; -LACTATED RINGERS 1,000 ML IV SCH; -LIDOCAINE 1% (10MG/ML) FOR IV START INTRADERMA PRN; +MELOXICAM 7.5 MG TAB PO PRN; +MIDAZOLAM 2 MG/2 ML VIAL IV PRN; +ONDANSETRON 4 MG/2 ML VIAL IVP ONE; -ONDANSETRON 4 MG/2 ML VIAL IVP PRN; +SCOPOLAMINE 1 MG/72 HR PATCH TRANSDERM ONE; +TRANEXAMIC 1,000 MG/100ML-NACL 1,000 MG in SALINE 1 100ML.BAG IVPB PRN; +ceFAZolin 3 GM in SODIUM CHLORIDE 0.9% 100 ML IVPB PRN
[2023-07-14] MEDS: LACTATED RINGERS 1,000 ML IV SCH ×2 (13:05→18:49)
[2023-07-14] MEDS ORDERED: fentaNYL (PF) 50 MCG/ML 2 ML AMP IVP ONE (13:55)
--- NOTE | 2023-07-14 14:19 | P.ANPRN ---
Procedure Note - Anesthesia - Nerve Block Performed Left Adductor Canal Infusion Time Out Performed: Yes Date of Procedure: 07/14/23 Procedure Start Time: 13:50 Procedure Stop Time: 13:56 Location of Patient: PreOp Indication: Acute Post-Operative Pain, Requested by Surgeon Sedation Type: Sedate with meaningful contact maintained Preparation: Sterile Prep Position: Supine Catheter: Indwelling Needle Types: On-Q Needle Gauge: 21 Ultrasound used to visualize needle placement: Yes Ultrasound used to observe medication spread: Yes Injectate: 0.5% Ropivacaine (see comment for volume) (Ropi 10ml+NS10ml) Blood Aspirated: No Pain Paresthesia on Injection Noted: No Resistance on Injection: Normal Image Stored and Saved: Yes Events: Uneventful and Well Tolerated
--- NOTE | 2023-07-14 14:26 | P.ANPRN ---
Procedure Note - Anesthesia - Nerve Block Performed Left [place] Single Time Out Performed: Yes Date of Procedure: 07/14/23 Procedure Start Time: 13:58 Procedure Stop Time: 13:07 Location of Patient: PreOp Indication: Acute Post-Operative Pain, Requested by Surgeon Sedation Type: Sedate with meaningful contact maintained Preparation: Sterile Prep Position: Right Lateral Catheter: None Needle Types: Pajunk Needle Gauge: 21 Ultrasound used to visualize needle placement: Yes Ultrasound used to observe medication spread: Yes Injectate: 0.5% Ropivacaine (see comment for volume) (Ropiv 10 ml+NS 10ml) Blood Aspirated: No Pain Paresthesia on Injection Noted: No Resistance on Injection: Normal Image Stored and Saved: Yes Events: Uneventful and Well Tolerated
[2023-07-14] MEDS ORDERED: fentaNYL (PF) 50 MCG/ML 2 ML AMP ONE (15:09)
[2023-07-14] MEDS ORDERED: GLYCOPYRROLATE 0.2 MG/ML 2 ML VIAL ONE (15:09)
[2023-07-14] MEDS ORDERED: TRANEXAMIC 1,000 MG/100ML-NACL PREMIX BAG ONE (15:09)
[2023-07-14] MEDS ORDERED: LIDOCAINE 1% INJ 10MG/ML (20 ML MDV) ONE (15:09)
[2023-07-14] MEDS ORDERED: ROPIVACAINE 5 MG/ML 30 ML VIAL ONE (15:09)
[2023-07-14] MEDS ORDERED: MIDAZOLAM 2 MG/2 ML VIAL ONE (15:09)
[2023-07-14] MEDS ORDERED: PROPOFOL 10 MG/ML 20 ML VIAL IV ONE (15:09)
[2023-07-14] MEDS ORDERED: SODIUM CHLORIDE 0.9% (PF) 10 ML VIAL ONE (15:09)
[2023-07-14] MEDS ORDERED: ROCURONIUM 10 MG/ML (5 ML VIAL) IV ONE (15:09)
[2023-07-14] MEDS ORDERED: NEOSTIGMINE 1 MG/ML 10 ML VIAL ONE (15:09)
[2023-07-14] MEDS ORDERED: ceFAZolin 1,000 MG in SODIUM CHLORIDE 0.9% 1,000 ML IRRIGATION ONE (15:42)
[2023-07-14] MEDS ORDERED: LACTATED RINGERS 1,000 ML IV ONE (16:30)
[2023-07-14] MEDS ORDERED: HYDROmorphone 0.5 MG/0.5 ML SYRINGE IVP PRN ×2 (16:50)
[2023-07-14] MEDS ORDERED: HYDROcodone/APAP 5-325MG 1 EACH TAB PO PRN (16:50)
[2023-07-14] MEDS ORDERED: HYDROmorphone 1 MG/ML 1 ML SYRINGE IVP PRN (16:50)
[2023-07-14] MEDS ORDERED: ONDANSETRON 4 MG/2 ML VIAL IVP PRN (16:50)
[2023-07-14] MEDS ORDERED: NALOXONE 0.4 MG/ML 1 ML VIAL IV PRN (16:50)
--- NOTE | 2023-07-14 16:50 | P.OP ---
Date of Procedure: 07/14/23 Preoperative Diagnosis: Left knee osteoarthritis Postoperative Diagnosis: Left knee osteoarthritis Procedure(s) Performed: Left total knee arthroplasty Implants: 1. Depuy attune size 6 narrow left cruciate retaining cemented femur 2. Depuy attune size 5 fixed bearing cemented tibial baseplate 3. Depuy attune size 6 fixed bearing cruciate retaining 7 mm polyethylene tibial insert 4. Depuy attune 35 mm all polyethylene cemented patella Anesthesia: GETA, regional (Adductor canal catheter, Ipack block) Surgeon: Haile Fernandez Manager Plan #1: Wilfrido Leach Estimated Blood Loss (ml): 40 Pathology: none sent Condition: stable Disposition: PACU Indications for Procedure: 52-year-old patient seen with symptomatic left knee osteoarthritis. After having treatment options discussed, she elected to proceed with left total knee arthroplasty. Operative Findings: See description of procedure Description of Procedure: Patient was taken to the operative suite after having an adductor canal catheter placed by the department of anesthesia. Patient underwent a general anesthetic by the department of anesthesia. Patient was given preoperative IV intake antibiotics and TXA. A well-padded tourniquet was placed about the left lower extremity. The lower extremity was then prepped and draped in the normal sterile orthopedic fashion. The extremity was elevated, a tourniquet was insufflated to 300. A standard anterior incision was made sharply through skin. Dissection was taken down through the subcutaneous soft tissues down to the extensor mechanism. A medial arthrotomy was performed, patella was everted and knee was flexed. There was advanced osteoarthritis noted predominantly involving the patellofemoral joint . I introduced my distal intramedullary f emoral drill. I then introduced the distal femoral cutting jig. Sandeep RODRIGUES secured the cutting jig with 2 pins. I held retractors in position while Sandeep RODRIGUES performed the distal femoral resection through the guide area we now removed her distal femoral cutting guide. We now placed our 4-in-1 femoral cutting block and positioned and it was secured with 2 pins by Sandeep RODRIGUES while I held the block in position. The distal femoral finishing was now completed. A proximal tibial cutting guide was positioned. I held the guide in the appropriate position with both hands well Sandeep RODRIGUES inserted stabilizing pins into the guide. Proximal tibial cut was made. We now placed a trial femoral component into position, along with an appropriate size tibial tray and insert. We now took the knee through range of motion and had full extension good flexion and good overall soft tissue balance noted. The patella was everted and stabilized with 2 towel clips held by Sandeep RODRIGUES while I performed a flush with patellar quad tendon utilizing a fresh sawblade. We templated the patella, appropriate drill holes were made. An appropriate trial patella was positioned, knee was taken through full range of motion with the patella tracking very nicely. The trial patella was removed. Drill holes were made through the femoral component. All trial components were removed after ma rking off the appropriate rotation of the tibia. Retractors were now positioned along the proximal tibia. An appropriate keel punch was made with the appropriate size tibial guide by myself on Sandeep RODRIGUES assisted by holding retractors. At this point appropriate size implants were chosen and opened. The joint was irrigated copiously with pulse lavage mechanical irrigation. The wound was irrigated with pulse lavage mechanical irrigation. We mixed antibiotic methylmethacrylate. We placed the knee into flexion. We placed multiple retractors assisted by Sandeep RODRIGUES to expose the proximal tibia. Once the methyl methacrylate was ready, the tibial component was cemented into place removing any excess methylmethacrylate form by both myself and Sandeep RODRIGUES. The femoral component was cemented into place removing the removing any excess methylmethacrylate performed by both myself and Sandeep RODRIGUES. We then inserted the appropriate size polyethylene tibial insert. We made sure that it was locked into position. We took the knee into full extension, and then back in a flexion making sure we had removed any excess methylmethacrylate. The patellar component was then cemented down and secured with clamp. Excess methylmethacrylate removed. We kept the knee in full extension, patellar clamp in position until methylmethacrylate had hardened. Once it had hardened the patellar clamp was removed. The knee was taken through full range of motion. The patella tracked nicely. There was good soft tissue balancing. The tourniquet was now released. Additional hemostasis was achieved via electrocautery. A second gram of TXA was given. The wound again was irrigated with pulse lavage mechanical irrigation. The extensor mechanism was repaired with Ethibond suture. We checked the repair with range of motion and it was stable. The subcutaneous soft tissues were repaired with Vicryl in layers. The skin was approximated with pernio/Dermabond. Sterile dressings were applied followed by loose web roll and Vitor bandage. The patient was transferred to a bed, and taken to recovery in stable and satisfactory condition. Sandeep RODRIGUES assisted with this complex procedure.
[2023-07-14] MEDS: HYDROmorphone 0.5 MG/0.5 ML SYRINGE IVP PRN ×3 (17:27→18:12)
--- NOTE | 2023-07-14 18:45 | XR ---
EXAMINATION TYPE: XR knee limited LT DATE OF EXAM: 07/14/2023 6:36 PM CLINICAL INDICATION:Female, 52 years old with history of Evaluation for Postop abnormality and alignm ent; [facility] COMPARISON: None. TECHNIQUE: XR knee limited LT; examined in Frontal, lateral and oblique projections. FINDINGS: Status post total knee arthroplasty changes with hardware in appropriate alignment and in tact. No evidence of fracture. Subcutaneous lucencies and lucencies within the joint consistent with surgical changes. IMPRESSION: Status post total knee arthroplasty changes with hardware intact and appropriate alignment. No fractu res identified.
[2023-07-14] MEDS: HYDROcodone/APAP 7.5-325MG 1 EACH TAB PO PRN (18:56)
[2023-07-14] MEDS ORDERED: Ubrogepant [Ubrelvy] 100 MG Tablet PO PRN (19:59)
[2023-07-14] MEDS: ENOXAPARIN 30 MG/0.3 ML SYRINGE SQ SCH (22:27)
[2023-07-14] MEDS: CYCLOBENZAPRINE 10 MG TAB PO PRN (22:56)
[2023-07-14] MEDS: TOPIRAMATE 25 MG TAB PO SCH (22:56)
[2023-07-15] MEDS: LACTATED RINGERS 1,000 ML IV SCH ×3 (05:26→13:01)
[2023-07-15] MEDS: HYDROcodone/APAP 7.5-325MG 1 EACH TAB PO PRN ×2 (06:22→11:53)
[2023-07-15 07:57] VITALS: BP 105/70; PULSE 82; RESP 17; TEMP 98.4
--- NOTE | 2023-07-15 08:06 | P.PN ---
Progress Note - Text Progress Note Date: 07/15/23 Patient seen at 0655 am POD #1 Left TKA. Adductor canal PNC insitu and infusing for post-op pain management. Patient sleepy and complains of pain VAS 7/10 while resting and ambulating with walker. Taking po analgesics as indicated. States that it is her left hip that hurts more than her left knee that was replaced. Patient will discuss with Dr Fernandez prior to discharge. Otherwise she is without complaint. Will follow up as indicated. Possible discharge to home today.
[2023-07-15] MEDS ORDERED: modafiniL 100 MG TAB PO SCH (09:00)
[2023-07-15] MEDS ORDERED: Linaclotide [Linzess] 290 MCG Capsule PO SCH (09:00)
[2023-07-15] MEDS ORDERED: DULoxetine HCL 60 MG CAPSULE.DR PO SCH (09:00)
[2023-07-15] MEDS: TOPIRAMATE 25 MG TAB PO SCH (09:43)
[2023-07-15] MEDS: ENOXAPARIN 30 MG/0.3 ML SYRINGE SQ SCH (09:43)
[2023-07-15] MEDS: CYCLOBENZAPRINE 10 MG TAB PO PRN (10:53)
[2023-07-15] MEDS ORDERED: MULTIVITAMINS, THERA 1 EACH TAB PO SCH (12:00)
--- NOTE | 2023-07-15 12:08 | P.PN ---
Subjective Progress Note Date: 07/15/23 Principal diagnosis: status post left total knee arthroplasty Patient is evaluated today at bedside, she is resting in her hospital bed. Patient has been up and ambulating to the restroom with no difficulty. She denies any headaches, lightheadedness, chest pain or shortness of breath at this time. Objective - Vital Signs Vital signs: Vital Signs Temp 98.4 F 07/15/23 07:06 Pulse 82 07/15/23 07:06 Resp 17 07/15/23 07:06 BP 105/70 07/15/23 07:06 Pulse Ox 91 L 07/15/23 08:56 FiO2 Intake & Output 07/14/23 07/15/23 07/15/23 18:59 06:59 18:59 Intake Total 1701 1300 Output Total 40 Balance 1661 1300 Weight 125.2 kg 125.2 kg Intake: IV 1701 Intake, IV Titration 1300 Amount Lactated Ringers 1,000 ml 1200 @ 100 mls/hr IV .Q10H JULIANO Rx#:[id number] ceFAZolin 2 gm In Sodium 100 Chloride 0.9% 50 ml @ 100 mls/hr IVPB Q8H JULIANO Rx#: [id number] Output: Estimated Blood Loss 40 Other: # Voids 3 - Exam Left lower extremity: Incision is clean, dry, and intact. The foam dressing is in good condition. There is minimal soft tissue swelling and ecchymosis surrounding the medial and lateral aspects of the incision. Calf is soft, no tenderness with palpation. Plantar flexion, dorsiflexion, EHL, FHL are intact. Sensory exam to light touch throughout the extremity is intact, dorsal pedis pulses 2+. Assessment and Plan Assessment: Postoperative day #1 status post left total knee arthroplasty Plan: Pain control, plan for discharge home on [place] 7.5 mg/325 mg DVT prophylaxis, aspirin 81 mg twice a day at discharge, will utilize for 30 days Home therapy and nursing after discharge Wound care instructions discussed, this to include showering along with icing and elevating and went to discontinue pain catheter Weight-bear as tolerated with walker Medical recommendations appreciated DVT prophylaxis: Plan for discharge to home today Time with Patient: Less than 30
--- NOTE | 2023-07-15 12:12 | P.DS ---
Providers Date of admission: 07/14/2023 Expected date of discharge: 07/15/23 Attending physician: Haile Fernandez Consults: 07/14/23 16:50 Consult Physician Routine Consulting Provider: Katia Persaud Consult Reason/Comments: Medical management Do you want consulting provider notified?: Yes Primary care physician: Rogelio Mendez MD Hospital Course: Date of admission: 07/14/2023 Date of discharge: 07/15/2023 Admission diagnosis: l status post eft total knee arthroplasty Discharge diagnosis: Same Attending physician: Dr. Fernandez Surgical procedures: Left total knee arthroplasty Brief history: Patient is a 52-year-old female with a history of progressive primary left knee osteoarthritis. At this point patient has failed conservative treatment measures and has opted to proceed with a elective left total knee arthroplasty. Hospital course: Details of patient's surgery can be found in operative report. Patient tolerated the procedure well and was subsequently transported to orthopedic floor. Patient's orthopeidc and medical care was provided daily. Patient had daily laboratory tests performed for evaluation of overall blood counts. Patient had daily physical therapy to include strengthening range of motion as well as education with walker ambulation. Patient was treated with Lovenox for their postoperative DVT prophylaxis during their inpatient stay. Patient was noted to have a relatively uneventful postoperative course. Patient reported satisfactory pain control with oral pain medications by postoperative day 0. Patient showed satisfactory progress with physical therapy. Patient moved steadily through the program and had no difficulty meeting the goals by postoperative day 1. Given patient's otherwise satisfactory course and having met physical therapy goals, plan is to discharge patient home on postoperative day 1. Discharge condition/disposition: Patient will be discharged home in stable condition. Discharge medications: Instructions are given on resumption of patient's normal daily medications per primary care recommendation, in addition patient will be prescribed [place] 7.5 mg/325 mg,. Discharge instructions: 1. Wound care and infection precautions, keep incision dry and covered while showering, no lotions, creams, moisturizers. No soaking, tubs, pools, hottubs. Do not scrub over the incision. 2. Weight-bear as tolerated with walker / cane until follow-up. 3. Ice and elevate when necessary. Do not exceed 20 minutes per hour with ice pack. 4. Utilize compression sleeve until seen at first follow up appointment. 5. Visiting nursing care. 6. Home physical therapy including home CPM. 7. Pain meds and anticoagulants per prescription. 8. Pain medication has potential to cause constipation. Increase oral fluid and fiber intake. Contact primary care provider if you have not had a bowel movement within 48 hours after discharge 9. No anti-inflammatory medication until discussed at first post operative visit, this including Motrin, Aleve, Mobic, Diclofenac. 10. Follow up in office at 2 weeks postop with Sandeep Leach PA-C/Kavon Juárez 11. Follow up with your primary care doctor 7-10 days after discharge. 12. Contact [facility] with any questions, . Procedures: Left total knee arthroplasty Patient Condition at Discharge: Good Plan - Discharge Summary Discharge Rx Participant: No New Discharge Prescriptions: New Aspirin [Adult Low Dose Aspirin EC] 81 mg PO BID #60 tab HYDROcodone/APAP 7.5-325MG [[place] 7.5] 1 each PO Q4HR PRN #42 tab PRN Reason: Pain Discontinued Hydrocodone/Acetaminophen [Hydrocodone/Acetaminophen 5-325] 1 tab PO BID PRN PRN Reason: Pain No Action DULoxetine HCL [Cymbalta] 60 mg PO QAM Cyclobenzaprine [Flexeril] 10 mg PO TID PRN PRN Reason: Pain Topiramate [Topamax] 50 mg PO BID Ubrogepant [Ubrelvy] 100 mg PO BID PRN PRN Reason: Pain Linaclotide [Linzess] 290 mcg PO DAILY Galcanezumab-Gnlm [Emgality Pen] 120 mg SQ QMONTHLY modafiniL [Provigil] 100 mg PO QAM Ergocalciferol [Vitamin D2 (1250 Mcg = 86703 Iu)] 1,250 mcg PO WEEKLY Discharge Medication List Cyclobenzaprine [Flexeril] 10 mg PO TID PRN 06/24/22 [History] DULoxetine HCL [Cymbalta] 60 mg PO QAM 06/24/22 [History] Topiramate [Topamax] 50 mg PO BID 06/24/22 [History] Galcanezumab-Gnlm [Emgality Pen] 120 mg SQ QMONTHLY 02/21/23 [History] Ubrogepant [Ubrelvy] 100 mg PO BID PRN 02/21/23 [History] Ergocalciferol [Vitamin D2 (1250 Mcg = 10495 Iu)] 1,250 mcg PO WEEKLY 07/08/23 [History] Linaclotide [Linzess] 290 mcg PO DAILY 07/08/23 [History] modafiniL [Provigil] 100 mg PO QAM 07/08/23 [History] Aspirin [Adult Low Dose Aspirin EC] 81 mg PO BID #60 tab 07/15/23 [Rx] HYDROcodone/APAP 7.5-325MG [[place] 7.5] 1 each PO Q4HR PRN #42 tab 07/15/23 [Rx] Follow up Appointment(s)/Referral(s): [facility],Equipment [NON-STAFF] - As Needed (Please call [facility] to arrange delivery of the Continuous Passive Motion (CPM) machine once home. ) Wilfrido Leach, PANFILO [PHYSICIAN BRANCH OPERATION EVALUATION MANAGER] - 2 Weeks [facility], [NON-STAFF] - 1-2 Days ([facility] will call you to schedule your in home nursing and physical therapy visits.) Activity/Diet/Wound Care/Special Instructions: Orthopedic Discharge Instructions: 1. Wound care and infection precautions, keep incision dry and covered while showering, no lotions, creams, moisturizers. No soaking, pools, hot tubs. Do not scrub over incision. 2. Weight-bear as tolerated with walker / cane until follow-up. 3. Ice and elevate when necessary. Do not exceed 20 minutes per hour with ice pack. 4. Utilize compression sleeve until seen at first follow up appointment. 5. Pain meds and anticoagulants per prescription. 6. Pain medication has potential to cause constipation. Increase oral fluid and fiber intake. Contact primary care provider if you have not had a bowel movement within 48 hours after discharge. 7. No anti-inflammatory medication until discussed at first post operative visit, this including Motrin, Aleve, Mobic, Diclofenac. 8. Follow up in office at 2 weeks postop with Sandeep Leach PA-C/Kavon Ponce PA-C 9. Follow up with your primary care doctor 7-10 days after discharge. 10. Contact [facility] with any questions, . Wound care instructions: 1. Okay to remove surgical dressing is 07/21/2023 2. Okay to shower directly over the incision after removal of dressing Discharge Disposition: HOME WITH HOME HEALTH SERVICES
[2023-07-15 13:33] LABS: Basophils # (A) 0.05 X 10*3/uL (0.00-0.10); Basophils % (A) 0.4 %; Eosinophils # (A) 0.08 X 10*3/uL (0.04-0.35); Eosinophils % (A) 0.7 %; HCT 39.8 % (37.2-46.3); HGB 12.9 g/dL (12.0-15.0); Lymphocytes # (A) 1.84 X 10*3/uL (0.90-5.00); Lymphocytes % (A) 16.2 %; MCH 30.1 pg (27.0-32.0); MCHC 32.4 g/dL (32.0-37.0); MCV 92.8 FL (80.0-97.0); Monocytes % (A) 8.8 %; NRBC Per 100 WBC 0 X 10*3/uL (0.00-0.01); Neutrophils # (A) 8.35 X 10*3/uL (1.80-7.70); Neutrophils % (A) 73.5 %; Platelet Count 432 X 10*3/uL (140-440); RBC 4.29 X 10*6/uL (4.10-5.20); RDW 14.3 % (11.5-14.5); WBC 11.36 X 10*3/uL (4.50-10.00)
--- NOTE | 2023-07-15 15:23 | P.CONS ---
History of Present Illness - Reason for Consult Consult date: 07/15/23 Medical management status post left knee arthroplasty - History of Present Illness This is a 52-year-old female who was recently admitted under orthopedic services underwent left total knee arthroplasty. Patient is postop day 1 reports doing well and does have some left knee pain although currently managed. Patient was able to work with physical therapy. Patient follows with Dr. Mendez in the outpatient setting with past medical history of fibromyalgia, sleep apnea, migraines, anxiety/depression. Patient reports to smoking and uses a vape device and denies any other illicit drug use or drinking. Patient was able to work with physical therapy reports to doing well and has help at home anticipates going home today. Patient with incentive spirometer at the bedside encourage the patient to take home and continue using at least 10 times every hour while awake. Review Of Systems: Constitutional: No fever, no chills, no night sweats. No weight change. No weakness, fatigue or lethargy. No daytime sleepiness. EENT: No headache. No blurred vision or double vision, no loss of vision. No loss of Hearing, no ringing in the ears, no dizziness. No nasal drainage or congestion. No epistaxis. No sore throat. Lungs: No shortness of breath, cough, no sputum production. No wheezing. Cardiovascular: No chest pain, no lower extremity edema. No palpitations. No paroxysmal nocturnal dyspnea. No orthopnea. No lightheadedness or dizziness. No syncopal episodes. Abdominal: No abdominal pain. No nausea, vomiting. No diarrhea. No constipation. No bloody or tarry stools.. No loss of appetite. Genitourinary: No dysuria, increased frequency, urgency. No urinary retention. Musculoskeletal: No myalgias. No muscle weakness, no gait dysfunction, no frequent falls. No back pain. No neck pain. Reports some mild left knee discomfort Integumentary: No wounds, no lesions. No rash or pruritus. No unusual bruising. No change in hair or nails. Neurologic: No aphasia. No facial droop. No change in mentation. No head injury. No headache. No paralysis. No paresthesia. Psychiatric: No depression. No anxiety. No mood swings. Endocrine: No abnormal blood sugars. No weight change. No excessive sweating or thirst. No cold intolerance. PHYSICAL EXAMINATION: GENERAL: The patient is alert and oriented x4, Well developed, well nourished. Morbidly obese HEENT: Pupils are round and equally reacting to light. EOMI. no scleral icterus. No conjunctival pallor. Normocephalic, atraumatic. No pharyngeal erythema. No thyromegaly. CARDIOVASCULAR: S1 and S2 muffled PULMONARY: diminished breath sounds bilaterally with no wheezing or rhonchi noted. ABDOMEN: soft. Nontender on exam. obese. non-distended, normoactive bowel sounds. No palpable organomegaly. MUSCULOSKELETAL: No joint swelling or deformity. Left knee surgical dressing is dry and intact with minimal swelling and no erythema noted EXTREMITIES: No cyanosis, clubbing, or pedal edema. NEUROLOGICAL: Gross neurological examination did not reveal any focal deficits. Diffuse weakness SKIN: No rashes. Assessment: Status post left total knee arthroplasty History of fibromyalgia Mild leukocytosis, reactive with no signs of infection at this time Sleep apnea and uses a CPAP Continued ongoing nicotine dependence Morbid obesity with a body mass index of 43.9 History of migraines Anxiety/depression PTSD disorder GI prophylaxis DVT prophylaxis Full code Plan: Recommend to continue with current medications and management per orthopedic services. Patient was seen and evaluated by physical therapy and did well and reports will be going home. Patient does have help at the home and is being arranged for home care outpatient Encourage the patient to complete smoking cessation and continue using incentive spirometer at least 10 times every hour while awake including taking home Home medications reviewed and resumed as appropriate Patient is medically stable for discharge home once cleared by orthopedics Pain management and DVT prophylaxis per orthopedics Thank you kindly for this consultation. We will continue to follow during hospitalization. The impression and plan of care has been dictated by Radha Han, nurse practitioner as directed. Dr. Jarod MD I have performed a history and examination and MDM of this patient, discussed the same with the dictator, and agree with the dictator's assessment and plan as written ,documented as a scribe. Based on total visit time, I have performed more than 50% of the visit. Any additional findings or plans will be noted. Past Medical History Past Medical History: Fibromyalgia, Sleep Apnea/CPAP/BIPAP Additional Past Medical History / Comment(s): vertigo, ms, migraines History of Any Multi-Drug Resistant Organisms: None Reported Past Surgical History: Hysterectomy, Joint Replacement, Orthopedic Surgery Additional Past Surgical History / Comment(s): lower back and neck, lft knee scope , right knee scope 2022 Past Anesthesia/Blood Transfusion Reactions: No Reported Reaction Additional Past Anesthesia/Blood Transfusion Reaction / Comm: no blood transfusion Past Psychological History: No Psychological Hx Reported, Anxiety, Depression, PTSD Smoking Status: Current every day smoker, Vaper Past Alcohol Use History: None Reported Additional Past Alcohol Use History / Comment(s): vape nicotine quit smoking 2018 Past Drug Use History: None Reported - Past Family History Father Additional Family Medical History / Comment(s): clotting problem per patient Medications and Allergies Home Medications Medication Instructions Recorded Confirmed Type Cyclobenzaprine [Flexeril] 10 mg PO TID PRN 06/24/22 07/14/23 History DULoxetine HCL [Cymbalta] 60 mg PO QAM 06/24/22 07/14/23 History Topiramate [Topamax] 50 mg PO BID 06/24/22 07/14/23 History Galcanezumab-Gnlm [Emgality Pen] 120 mg SQ QMONTHLY 02/21/23 07/14/23 History Ubrogepant [Ubrelvy] 100 mg PO BID PRN 02/21/23 07/14/23 History Ergocalciferol [Vitamin D2 (1250 1,250 mcg PO WEEKLY 07/08/23 07/08/23 History Mcg = 79418 Iu)] Linaclotide [Linzess] 290 mcg PO DAILY 07/08/23 07/14/23 History modafiniL [Provigil] 100 mg PO QAM 07/08/23 07/14/23 History Aspirin [Adult Low Dose Aspirin EC] 81 mg PO BID #60 tab 07/15/23 Rx HYDROcodone/APAP 7.5-325MG [[place] 1 each PO Q4HR PRN #42 tab 07/15/23 Rx 7.5] Allergies Allergy/AdvReac Type Severity Reaction Status Date / Time nickel Allergy Rash/Hives Verified 07/08/23 12:42 Physical Exam Vitals: Vital Signs Temp Pulse Pulse Resp BP Pulse Ox 07/15/23 08:56 91 L 07/15/23 07:06 98.4 F 82 17 105/70 91 L 07/15/23 00:39 98.5 F 83 18 122/69 92 L 07/14/23 20:33 94 135/86 92 L 07/14/23 20:03 97 144/92 92 L 07/14/23 20:02 98 90 L 07/14/23 19:56 96 90 L 07/14/23 19:48 93 150/86 91 L 07/14/23 19:41 103 H 93 L 07/14/23 19:33 104 H 116/69 91 L 07/14/23 19:18 90 152/90 93 L 07/14/23 19:03 100 144/88 94 L 07/14/23 18:48 98.2 F 95 18 143/76 92 L 07/14/23 18:20 97 19 118/80 97 07/14/23 18:00 96 13 118/65 96 07/14/23 17:45 100 14 117/59 96 07/14/23 17:30 91 15 122/62 94 L 07/14/23 17:14 97.4 F L 102 H 18 118/64 97 07/14/23 14:20 83 16 116/64 96 07/14/23 13:11 97.0 F L 97 16 149/70 95 Intake and Output 07/14/23 07/15/23 07/15/23 22:59 06:59 14:59 Intake Total 1201 1300 Output Total 40 Balance 1161 1300 Intake: IV 1201 Intake, IV Titration 1300 Amount Lactated Ringers 1,000 ml 1200 @ 100 mls/hr IV .Q10H JULIANO Rx#:[id number] ceFAZolin 2 gm In Sodium 100 Chloride 0.9% 50 ml @ 100 mls/hr IVPB Q8H JULIANO Rx#: [id number] Output: Estimated Blood Loss 40 Other: # Voids 3 Weight 125.2 kg Results CBC & Chem 7: 07/15/23 06:44
== END 2023-07-15 15:02 | disposition home health service (06) ==
LOC: OR 12:38 → 4SSUR 17:02 → OR 17:05 → 4SSUR 17:06 → OR 07-15 15:02 → 4SSUR 07-15 15:02
PROVIDERS: ADMIT Orthopaedic Surgery; ATTEND Orthopaedic Surgery
DX: M17.12 Unilateral primary osteoarthritis, left knee (principal); G89.18 Other acute postprocedural pain; F41.9 Anxiety disorder, unspecified; Z79.899 Other long term (current) drug therapy
CPT/HCPCS: 94760; 97161; 85025; 73560; 27447; 64448; 64999; J2250; J1100; J0690 ×3; J2405; J3010; J1650; J1170

== ENCOUNTER → 2023-09-23 | Outpatient (CLI) | payer MEDICARE, OTHER ==
--- NOTE | 2023-09-29 07:32 | MM ---
Reason for Exam: Screening (asymptomatic). Last mammogram was performed 2 year(s) and 5 month(s) ago. Patient History: Menarche at age 11. First Full-Term at age 27. Hysterectomy at age 33. Patient has history of breast feeding. Patient used Hormonal Contraceptives for 2 years. Paternal grandmother had breast cancer, age 90. Maternal aunt had breast cancer, age 60. Risk Values: Gabby 5 year model risk: 1.2%. NCI Lifetime model risk: 9.4%. Prior Study Comparison: 09/27/2016 Bilateral Screening Mammogram, Adithya Bosque. 03/24/2021 Bilateral Screening Mammogram, Adithya Bosque. 03/29/2021 Right Diagnostic Ultrasound, Adithya Bosque. 04/19/2021 Right Diagnostic Mammogram, Adithya Bosque. Tissue Density: The breast tissue is heterogeneously dense. This may lower the sensitivity of mammography. Findings: Analyzed By CAD. Right breast biopsy clip. There is no suspicious group of microcalcifications or new suspicious mass. Benign-appearing calcifications bilaterally. Overall Assessment: Benign, BI-RAD 2 Management: Screening Mammogram of both breasts in [address] [facility] will attempt to contact patient to return for supplemental views and ultrasound if indicated. Patient should continue monthly self-breast exams. A clinical breast exam by your physician is recommended on an annual basis. This exam should not preclude additional follow-up of suspicious palpable abnormalities. Note on Gabby scores and lifetime risk: 1. A Gabby score greater than 3% is considered moderate risk. If this is the case, consider specialist referral to assess eligibility for a risk reducing agent. 2. If overall lifetime risk for the development of breast cancer is 20% or higher, the patient may qualify for future screening with alternating mammogram and breast MRI. Electronically signed and approved by: Maxi Jane DO
== END | disposition home or self-care (01) ==
LOC: RADMAMWWP 15:44
PROVIDERS: ATTEND Internal Medicine
DX: Z12.31 Encounter for screening mammogram for malignant neoplasm of breast (principal); Z80.3 Family history of malignant neoplasm of breast
CPT/HCPCS: 77063; 77067

== ENCOUNTER → 2023-09-23 | Outpatient (CLI) | payer MEDICARE, OTHER | END | disposition home or self-care (01) | LOC: LABPAT 15:42 | PROVIDERS: ATTEND Orthopaedic Surgery | DX: Z01.812 Encounter for preprocedural laboratory examination (principal); Z22.322 Carrier or suspected carrier of Methicillin resistant Staphylococcus aureus; M17.11 Unilateral primary osteoarthritis, right knee | CPT/HCPCS: 87070 ==

== ENCOUNTER 2023-10-20 12:34 | Observation (INO) | payer MEDICARE, OTHER ==
[2023-10-14 10:29] VITALS: BMI 43.9
--- NOTE | 2023-10-20 07:33 | HP ---
HISTORY AND PHYSICAL Surgery is scheduled for 10/20/2023. HISTORY OF PRESENT ILLNESS: Alexandria Shannon is a 53-year-old patient, seen with symptomatic right knee osteoarthritis. We discussed options for treatment. She elected to proceed with right total knee arthroplasty. Consent was obtained. Medical clearance by Dr. Mendez. PAST MEDICAL HISTORY: Hypertension, depression. PAST SURGICAL HISTORY: Bilateral knee arthroscopy, left total knee arthroplasty, lumbar spine surgery. DAILY MEDICATIONS: 1. Modafinil. 2. Hydrocodone. 3. Vitamins. ALLERGIES: Sulfa. SOCIAL HISTORY: She denies current tobacco use. PHYSICAL EVALUATION OF THE RIGHT KNEE: Range of motion, 0 to 125 degrees. Mild effusion. Tenderness, medial joint line. Crepitus, medial patellofemoral compartments with range of motion. Pain with patellofemoral compression. Ligaments stable. Hip rotation without pain. Distal neurovascular exam is intact. IMAGING STUDIES: Radiographs of right knee reveal severe osteoarthritic changes. IMPRESSION: Right knee osteoarthritis. PLAN: Right total knee arthroplasty. MMODL / IJN: [id number] /
[~2023-10-20 12:34] MED LIST changes: -ACETAMINOPHEN TAB 500 MG TAB PO PRN; -DEXAMETHASONE SOD PHOSPHATE 4 MG/ML 1 ML VIAL IV ONE; +LIDOCAINE 1% (10MG/ML) FOR IV START INTRADERMA PRN; -MELOXICAM 7.5 MG TAB PO PRN; -ONDANSETRON 4 MG/2 ML VIAL IVP ONE; -SCOPOLAMINE 1 MG/72 HR PATCH TRANSDERM ONE; -ceFAZolin 3 GM in SODIUM CHLORIDE 0.9% 100 ML IVPB PRN
[2023-10-20] MEDS: LACTATED RINGERS 1,000 ML IV SCH ×2 (12:47→18:31)
[2023-10-20] MEDS: ONDANSETRON 4 MG/2 ML VIAL IVP ONE (13:05)
[2023-10-20] MEDS: ACETAMINOPHEN TAB 500 MG TAB PO PRN (13:05)
[2023-10-20] MEDS: DEXAMETHASONE SOD PHOSPHATE 4 MG/ML 1 ML VIAL IV ONE (13:05)
[2023-10-20] MEDS: MELOXICAM 7.5 MG TAB PO PRN (13:05)
[2023-10-20] MEDS: MIDAZOLAM 2 MG/2 ML VIAL IVP ONE (13:23)
[2023-10-20] MEDS: SCOPOLAMINE 1 MG/72 HR PATCH TRANSDERM ONE (13:34)
[2023-10-20] MEDS ORDERED: ROPIVACAINE 5 MG/ML 30 ML VIAL ONE (13:52)
[2023-10-20] MEDS ORDERED: SODIUM CHLORIDE 0.9% (PF) 10 ML VIAL ONE (13:52)
[2023-10-20] MEDS ORDERED: PROPOFOL 10 MG/ML 20 ML VIAL IV ONE (13:52)
[2023-10-20] MEDS ORDERED: TRANEXAMIC 1,000 MG/100ML-NACL PREMIX BAG ONE (13:52)
[2023-10-20] MEDS ORDERED: fentaNYL (PF) 50 MCG/ML 2 ML AMP ONE (13:52)
[2023-10-20] MEDS ORDERED: LIDOCAINE 1% INJ 10MG/ML (20 ML MDV) ONE (13:52)
[2023-10-20] MEDS: ceFAZolin 3 GM in SODIUM CHLORIDE 0.9% 100 ML IVPB PRN (13:54)
[2023-10-20] MEDS: ceFAZolin 1,000 MG in SODIUM CHLORIDE 0.9% 1,000 ML IRRIGATION ONE (14:31)
--- NOTE | 2023-10-20 14:48 | P.ANPRN ---
Procedure Note - Anesthesia - Nerve Block Performed Right Adductor Canal Infusion Time Out Performed: Yes (1323) Date of Procedure: 10/20/23 Procedure Start Time: 13:23 Procedure Stop Time: 13:49 Location of Patient: PreOp Indication: Acute Post-Operative Pain, Requested by Surgeon Sedation Type: Sedate with meaningful contact maintained Preparation: Sterile Prep, Sterile Dressing Position: Supine Catheter: Indwelling Needle Types: Pajunk Needle Gauge: 18 Ultrasound used to visualize needle placement: Yes Ultrasound used to observe medication spread: Yes Injectate: 0.5% Ropivacaine (see comment for volume) (10 ML of 0.5% ropivacaine mixed with 10 ML of preservative-free normal saline) Blood Aspirated: No Pain Paresthesia on Injection Noted: No Resistance on Injection: Normal Image Stored and Saved: Yes Events: Uneventful and Well Tolerated
--- NOTE | 2023-10-20 14:49 | P.ANPRN ---
Procedure Note - Anesthesia - Nerve Block Performed Right iPack Single Time Out Performed: Yes (1323) Date of Procedure: 10/20/23 Procedure Start Time: 13:23 Procedure Stop Time: 13:49 Location of Patient: PreOp Indication: Acute Post-Operative Pain, Requested by Surgeon Sedation Type: Sedate with meaningful contact maintained Preparation: Sterile Prep, Sterile Dressing Position: Supine Catheter: None Needle Types: Pajunk Needle Gauge: 21 Ultrasound used to visualize needle placement: Yes Ultrasound used to observe medication spread: Yes Injectate: 0.5% Ropivacaine (see comment for volume) (10 ML of 0.5% ropivacaine mixed with 10 ML of preservative-free normal saline) Blood Aspirated: No Pain Paresthesia on Injection Noted: No Resistance on Injection: Normal Image Stored and Saved: Yes Events: Uneventful and Well Tolerated
[2023-10-20] MEDS: LACTATED RINGERS 1,000 ML IV ONE (15:17)
[2023-10-20] MEDS ORDERED: NALOXONE 0.4 MG/ML 1 ML VIAL IV PRN (15:37)
[2023-10-20] MEDS ORDERED: HYDROcodone/APAP 5-325MG 1 EACH TAB PO PRN (15:37)
[2023-10-20] MEDS ORDERED: HYDROmorphone 0.5 MG/0.5 ML SYRINGE IVP PRN (15:37)
[2023-10-20] MEDS ORDERED: ONDANSETRON 4 MG/2 ML VIAL IVP PRN (15:37)
--- NOTE | 2023-10-20 15:37 | P.OP ---
Date of Procedure: 10/20/23 Preoperative Diagnosis: Right knee osteoarthritis Postoperative Diagnosis: Right knee osteoarthritis Procedure(s) Performed: Right total knee arthroplasty Implants: 1. DePuy attune size 6 narrow right cruciate retaining cemented femur 2. DePuy attune size 5 fixed-bearing cemented tibial baseplate 3. DePuy attune size 6 fixed-bearing cruciate retaining 7 mm polyethylene tibial insert 4. DePuy attune 38 mm all polyethylene cemented patella Anesthesia: regional (Adductor canal catheter, iPAQ block), spinal Surgeon: Haile Fernandez Inspector Motor [employer]icles #1: Wilfrido Leach Estimated Blood Loss (ml): 45 Pathology: none sent Condition: stable Disposition: PACU Indications for Procedure: 53-year-old patient who was seen with symptomatic right knee osteoarthritis. After having treatment options discussed, she elected to proceed with right total knee arthroplasty. Operative Findings: See description of procedure Description of Procedure: Patient was taken to the operative suite after having an adductor canal catheter placed by the department of anesthesia. Patient underwent a spinal anesthetic by the department of anesthesia. Patient was given preoperative IV intake an tibiotics and TXA. A well-padded tourniquet was placed about the right lower extremity. The lower extremity was then prepped and draped in the normal sterile orthopedic fashion. The extremity was elevated, a tourniquet was insufflated to 300. A standard anterior incision was made sharply through skin. Dissection was taken down through the subcutaneous soft tissues down to the extensor mechanism. A medial arthrotomy was performed, patella was everted and knee was flexed. There was advanced osteoarthritis noted. I introduced my distal intramedullary femoral drill. I then introduced the distal femoral cutting jig. Sandeep RODRIGUES secured the cutting jig with 2 pins. I held retractors in position while Sandeep RODRIGUES performed the distal femoral resection through the guide area we now removed her distal femoral cutting guide. We now placed our 4-in-1 femoral cutting block and positioned and it was secured with 2 pins by Sandeep RODRIGUES while I held the block in position. The distal femoral finishing was now completed. A proximal tibial cutting guide was positioned. I held the guide in the appropriate position with both hands well Sandeep RODRIGUES inserted stabilizing pins into the guide. Proximal tibial cut was made. We now placed a trial femoral component into position, along with an appropriate size tibial tray and insert. We now took the knee through range of motion and had full extension good flexion and good overall soft tissue balance noted. The patella was everted and stabilized with 2 towel clips held by Sandeep RODRIGUES while I performed a flush with patellar quad tendon utilizing a fresh sawblade. We templated the patella, appropriate drill holes were made. An appropriate trial patella was positioned, knee was taken through full range of motion with the patella tracking very nicely. The trial patella was removed. Drill holes were made through the femoral component. All trial components were removed after marking off the appropriate rotation of the tibia. Retractors were now positioned along the proximal tibia. An appropriate keel punch was made with the appropriate size tibial guide by myself on Sandeep RODRIGUES assisted by holding retractors. At this point appropriate size implants were chosen and opened. The joint was irrigated copiously with pulse lavage mechanical irrigation. The wound was irrigated with pulse lavage mechanical irrigation. We mixed antibiotic methylmethacrylate. We placed the knee into flexion. We placed multiple retractors assisted by Sandeep RODRIGUES to expose the proximal tibia. Once the methyl methacrylate was ready, the tibial component was cemented into place removing any excess methylmethacrylate form by both myself and Sandeep RODRIGUES. The femoral component was cemented into place removing the removing any excess methylmethacrylate performed by both myself and Sandeep RODRIGUES. We then inserted the appropriate size polyethylene tibial insert. We made sure that it was locked into position. We took the knee into full extension, and then back in a flexion making sure we had removed any excess methylmethacrylate. The patellar component was then cemented down and secured with clamp. Excess methylmethacrylate removed. We kept the knee in full extension, patellar clamp in position until methylmethacrylate had hardened. Once it had hardened the patellar clamp was removed. The knee was taken through full range of motion. The patella tracked nicely. There was good soft tissue balancing. The tourniquet was now released. Additional hemostasis was achieved via electrocautery. A second gram of TXA was given. The wound again was irrigated with pulse lavage mechanical irrigation. The extensor mechanism was repaired with Ethibond suture. We checked the repair with range of motion and it was stable. The subcutaneous soft tissues were repaired with Vicryl in layers. The skin was approximated with pernio/Dermabond. Sterile dressings were applied followed by loose web roll and Vitor bandage. The patient was transferred to a bed, and taken to recovery in stable and satisfactory condition. Sandeep RODRIGUES assisted with this complex procedure.
[2023-10-20] MEDS: HYDROmorphone 0.5 MG/0.5 ML SYRINGE IVP PRN ×2 (16:08→18:10)
--- NOTE | 2023-10-20 17:25 | XR ---
Right knee. HISTORY: Right knee replacement. COMPARISON: None. TECHNIQUE: 2 views of the right knee were obtained following right knee surgery for prosthesis. FINDINGS: There is a total right knee with near anatomic alignment and no acute fracture or dislocation. There is soft tissue gas in the anterior soft tissues consistent with recent surgery. IMPRESSION: Total right knee replacement with no significant abnormality seen.
[2023-10-20] MEDS: ENOXAPARIN 30 MG/0.3 ML SYRINGE SQ SCH (18:31)
[2023-10-20] MEDS: HYDROcodone/APAP 7.5-325MG 1 EACH TAB PO PRN (19:16)
[2023-10-20] MEDS: HYDROmorphone 1 MG/ML 1 ML SYRINGE IVP PRN (21:23)
[2023-10-20] MEDS: SENNOSIDES-DOCUSATE SODIUM 1 EACH TAB PO SCH (21:24)
[2023-10-20] MEDS: ceFAZolin 3 GM in SODIUM CHLORIDE 0.9% 100 ML IVPB SCH (21:24)
[2023-10-20] MEDS: CYCLOBENZAPRINE 10 MG TAB PO PRN (21:25)
[2023-10-21] MEDS: KETOROLAC 15 MG/ML 1 ML VIAL IVP STA (01:21)
[2023-10-21 08:30] LABS: Basophils # (A) 0.04 X 10*3/uL (0.00-0.10); Basophils % (A) 0.3 %; Eosinophils # (A) 0.04 X 10*3/uL (0.04-0.35); Eosinophils % (A) 0.3 %; HCT 40.3 % (37.2-46.3); HGB 13.2 g/dL (12.0-15.0); Lymphocytes # (A) 2.01 X 10*3/uL (0.90-5.00); Lymphocytes % (A) 14.4 %; MCH 30.3 pg (27.0-32.0); MCHC 32.8 g/dL (32.0-37.0); MCV 92.6 FL (80.0-97.0); Mean Platelet Volume 9.9 FL (9.5-12.2); Monocytes # (A) 0.96 X 10*3/uL (0.20-1.00); Monocytes % (A) 6.9 %; NRBC Per 100 WBC 0 X 10*3/uL (0.00-0.01); Neutrophils # (A) 10.89 X 10*3/uL (1.80-7.70); Neutrophils % (A) 77.7 %; Platelet Count 416 X 10*3/uL (140-440); RBC 4.35 X 10*6/uL (4.10-5.20)
--- NOTE | 2023-10-21 09:09 | P.PN ---
Subjective Progress Note Date: 10/21/23 Principal diagnosis: Status post right total knee arthroplasty Patient evaluated at bedside today, she is resting in her hospital bed. Patient is experiencing some increase in pain compared to her left knee. They did increase the On-Q pain catheter with minimal relief. This has been turned back down to 8. She has been up and ambulating to the bathroom, she is urinating wit h no issues. She is eager to work with physical therapy. She denies headaches, lightheadedness, chest pain or shortness of breath. Objective - Vital Signs Vital signs: Vital Signs Temp 97.7 F 10/21/23 07:54 Pulse 72 10/21/23 07:54 Resp 17 10/21/23 07:54 BP 125/77 10/21/23 07:54 Pulse Ox 94 L 10/21/23 07:54 FiO2 Intake & Output 10/20/23 10/21/23 10/21/23 18:59 06:59 18:59 Intake Total 1601 900 Output Total 45 Balance 1556 900 Weight 125.3 kg Intake: IV 1601 Oral 900 Output: Estimated Blood Loss 45 Other: Voiding Method Toilet # Voids 2 - Exam Right lower extremity: Incision is clean, dry, and intact. The foam dressing is in good condition. There is minimal soft tissue swelling and ecchymosis surrounding the medial and lateral aspects of the incision. Calf is soft, no tenderness with palpation. Plantar flexion, dorsiflexion, EHL, FHL are intact. Sensory exam to light touch throughout the extremity is intact, dorsal pedis pulses 2+. - Labs CBC & Chem 7: 10/21/23 05:43 Labs: Abnormal Lab Results - Last 24 Hours (Table) 10/21/23 Range/Units 05:43 WBC 14.00 H (4.50-10.00) X 10*3/uL Immature Gran # 0.06 H (0.00-0.04) X 10*3/uL Neutrophils # 10.89 H (1.80-7.70) X 10*3/uL Assessment and Plan Assessment: Postoperative day #1 status post right total knee arthroplasty Plan: Pain control, plan to increase [facility] to 10 mg / 325 mg. DVT prophylaxis, continue subcu medication during hospital stay Wound care instructions discussed, this to include icing and elevating, On-Q pain catheter use and showering instructions Encourage incentive spirometer PT/OT Medical recommendations appreciated Discharge planning: Will reassess patient today, pending pain control hopeful discharge to home today with home health care Time with Patient: Less than 30
--- NOTE | 2023-10-21 09:55 | P.PN ---
Progress Note - Text Progress Note Date: 10/21/23 patient was seen and evaluated at bedside. Status post postoperative day 1 for Right total knee arthroplasty patient had adductor canal catheter for postop pain control. Patient rated pain at rest 4-5 out of 10 in severity. Patient describes pain is aching, throbbing type on the sides of the knee and back of the knee. Patient started walking with support. With activity patient pain levels are 8 out of 10 in severity. With the help of oral pain medications pain levels are tolerable. Patient denied any weakness/ numbness in lower extremities. patient denied any fever, pain over the catheter site. Physical exam: Patient vital signs stable Patient is alert awake oriented 3 responding to all questions appropriately Examination of the catheter site showed dressing intact, no leaking fluid around the catheter, no redness, no tenderness over the catheter insertion area. plan: status post postoperative day 1 for Right total knee arthroplasty with adductor canal catheter for pain control. Patient was discussed to continue the medication at the rate of 8 mL per hour until the pump is completely empty and instructed the patient how to discontinue the catheter.
[2023-10-21] MEDS ORDERED: MECLIZINE 25 MG TAB PO PRN (10:46)
[2023-10-21] MEDS ORDERED: NON FORMULARY DRUG (Ubrogepant [Ubrelvy] 100 MG Tablet) PO PRN (10:46)
--- NOTE | 2023-10-21 12:19 | P.CONS ---
History of Present Illness - Reason for Consult Consult date: 10/21/23 Medical management Requesting physician: Haile Fernandez - History of Present Illness This is a pleasant 53-year-old female with medical history significant for MS, fibromyalgia, vertigo migraines, sleep apnea with CPAP use. Anxiety depression PTSD, quit smoking in 2019 and continues to vape. Patient comes into the hospital for a planned right total knee arthroplasty. Today is postoperative day #1. Patient is continue to report significant pain to the right knee rating it a 10 out of 10 and states that the current oral medications are not helping. She has not gotten up with physical therapy yet today. She is on a combination of [place] 5 mg every 6 hours, [place] 7.5 every 6 hours and [place] 10 every 6 hours additionally patient is on Flexeril, IV Dilaudid. He has no complaints of chest pain or shortness of breath no nausea vomiting diarrhea. She does have a mild dull migraine states that she takes Topamax for this and has been resumed. She is anticipating discharge home today if her pain improves. REVIEW OF SYSTEMS: CONSTITUTIONAL: No fever, no malaise, no fatigue. HEENT: No recent visual problems or hearing problems. Denied any sore throat. CARDIOVASCULAR: No chest pain, orthopnea, PND, no palpitations, no syncope. PULMONARY: No shortness of breath, no cough, no hemoptysis. GASTROINTESTINAL: No diarrhea, no nausea, no vomiting, no abdominal pain. NEUROLOGICAL: No headaches, no weakness, no numbness. HEMATOLOGICAL: Denies any bleeding or petechiae. GENITOURINARY: Denies any burning micturition, frequency, or urgency. MUSCULOSKELETAL/RHEUMATOLOGICAL: Denies any joint pain, swelling, or any muscle pain. ENDOCRINE: Denies any polyuria or polydipsia. The rest of the 14-point review of systems is negative. PHYSICAL EXAMINATION: GENERAL: The patient is alert and oriented x3, not in any acute distress. Well developed, well nourished. HEENT: Pupils are round and equally reacting to light. EOMI. No scleral icterus. No conjunctival pallor. Normocephalic, atraumatic. No pharyngeal erythema. No thyromegaly. CARDIOVASCULAR: S1 and S2 present. No murmurs, rubs, or gallops. PULMONARY: Chest is clear to auscultation, no wheezing or crackles. ABDOMEN: Soft, nontender, nondistended, normoactive bowel sounds. No palpable organomegaly. MUSCULOSKELETAL: No joint swelling or deformity. Post surgical right knee. Ice packs in place. EXTREMITIES: No cyanosis, clubbing, or pedal edema. NEUROLOGICAL: Gross neurological examination did not reveal any focal deficits. SKIN: No rashes. Assessment and Plan Osteoarthritis postoperative day #1 right total knee arthroplsaty orthopedics is following. Patient has been started on lovenox for DVT prophylaxis. Having increased pain to the right knee today. Medications have been adjusted. Hx of Multiple sclerosis Hx of fibromyalgia Hx of migraines maintained on ubrelvy, topamax, which have been resumed. Hx of sleep apnea with CPAP use. Anxiety/depression/PTSD Hx of smoking in the past currently vapes counseling provided. GI prophylaxis DVT prophylaxis as per primary Full Code Medically patient is doing well, resumed on home medications. Pain medications have been adjusted and patient is a possible discharge home today if her pain improves. She is pending physical therapy consultation. Thank you for this consultation. The impression and plan of care has been dictated by Drea Durán Nurse Practitioner as directed. Dr. Jarod MD I have performed a history and physical examination and medical decision making of this patient, discussed the same with the dictator, and agree with the dictators assessment and plan as written, documented as a scribe. Based on total visit time, I have performed more than 50% of this visit. Past Medical History Past Medical History: Fibromyalgia, Sleep Apnea/CPAP/BIPAP Additional Past Medical History / Comment(s): Vertigo, Multiple Sclerosis, migraines, CPAP use. History of Any Multi-Drug Resistant Organisms: None Reported Past Surgical History: Back Surgery, Hysterectomy, Joint Replacement, Orthopedic Surgery Additional Past Surgical History / Comment(s): Lower back and neck surgery, bilateral knee arthroscopy, left knee replacement. Past Anesthesia/Blood Transfusion Reactions: No Reported Reaction Additional Past Anesthesia/Blood Transfusion Reaction / Comm: No blood transfusion. Past Psychological History: Anxiety, Depression, PTSD Smoking Status: Vaper Past Alcohol Use History: None Reported Additional Past Alcohol Use History / Comment(s): Quit smoking in 2019, vapes now. Past Drug Use History: None Reported - Past Family History Father Additional Family Medical History / Comment(s): Clotting problem per patient. Medications and Allergies Home Medications Medication Instructions Recorded Confirmed Type Cyclobenzaprine [Flexeril] 10 mg PO TID PRN 06/24/22 10/20/23 History DULoxetine HCL [Cymbalta] 60 mg PO QAM 06/24/22 10/20/23 History Topiramate [Topamax] 50 mg PO BID 06/24/22 10/20/23 History Galcanezumab-Gnlm [Emgality Pen] 120 mg SQ QMONTHLY 02/21/23 10/20/23 History Ubrogepant [Ubrelvy] 100 mg PO BID PRN 02/21/23 10/20/23 History Linaclotide [Linzess] 290 mcg PO DAILY 07/08/23 10/20/23 History modafiniL [Provigil] 100 mg PO QAM 07/08/23 10/20/23 History HYDROcodone/APAP 5-325MG [[place] 1 tab PO BID PRN 10/14/23 10/20/23 History 5-325] Meclizine [Antivert] 25 mg PO BID PRN 10/14/23 10/20/23 History Allergies Allergy/AdvReac Type Severity Reaction Status Date / Time nickel Allergy Rash/Hives Verified 10/20/23 13:19 Physical Exam Vitals: Vital Signs Temp Pulse Resp BP BP Pulse Ox 10/21/23 07:54 97.7 F 72 17 125/77 94 L 10/21/23 01:30 98.0 F 77 20 118/75 94 L 10/20/23 19:08 98.4 F 71 20 124/64 94 L 10/20/23 18:00 97.4 F L 82 18 122/78 94 L 10/20/23 17:17 83 16 136/70 95 10/20/23 16:52 80 16 126/73 97 10/20/23 16:30 81 16 133/74 92 L 10/20/23 16:14 76 16 119/75 93 L 10/20/23 16:01 74 16 116/64 94 L 10/20/23 15:56 78 16 105/52 94 L 10/20/23 13:43 89 18 96/62 98 10/20/23 12:45 97.0 F L 104 H 18 124/54 96 Intake and Output 10/20/23 10/21/23 10/21/23 22:59 06:59 14:59 Intake Total 500 900 Output Total 45 Balance 455 900 Intake: IV 500 Oral 900 Output: Estimated Blood Loss 45 Other: Voiding Method Toilet # Voids 2 Weight 125.3 kg Results CBC & Chem 7: 10/21/23 05:43 Labs: Abnormal Lab Results - Last 24 Hours (Table) 10/21/23 Range/Units 05:43 WBC 14.00 H (4.50-10.00) X 10*3/uL Immature Gran # 0.06 H (0.00-0.04) X 10*3/uL Neutrophils # 10.89 H (1.80-7.70) X 10*3/uL Assessment and Plan Time with Patient: Less than 30
[2023-10-21] MEDS: NON FORMULARY DRUG (Linaclotide [Linzess] 290 MCG Capsule) PO SCH (12:38)
[2023-10-21] MEDS: modafiniL 100 MG TAB PO SCH (12:40)
[2023-10-21] MEDS: hydrOXYzine pamoate 25 MG CAP PO PRN (12:41)
[2023-10-21] MEDS: DULoxetine HCL 60 MG CAPSULE.DR PO SCH (12:41)
[2023-10-21] MEDS: HYDROcodone/APAP 10-325MG 1 EACH TAB PO PRN (12:41)
[2023-10-21] MEDS: MULTIVITAMINS, THERA 1 EACH TAB PO SCH (12:41)
[2023-10-21] MEDS: TOPIRAMATE 25 MG TAB PO SCH (15:06)
[2023-10-22 08:13] VITALS: BP 130/84; PULSE 87; RESP 16; TEMP 98.7
--- NOTE | 2023-10-22 10:32 | P.PN ---
Subjective Progress Note Date: 10/22/23 Principal diagnosis: Status post right total knee arthroplasty Patient evaluated at bedside today, she is resting in her hospital bed. Patient is doing a little bit better today. She still feels that the pain does increase with weightbearing. She denies any issues with urination. She denies headaches, lightheadedness, chest pain or shortness of breath. Objective - Vital Signs Vital signs: Vital Signs Temp 98.7 F 10/22/23 07:45 Pulse 87 10/22/23 07:45 Resp 16 10/22/23 07:45 BP 130/84 10/22/23 07:45 Pulse Ox 90 L 10/22/23 07:45 FiO2 Intake & Output 10/21/23 10/22/23 10/22/23 18:59 06:59 18:59 Intake Total 1200 Balance 1200 Intake: Oral 1200 Other: # Voids 4 4 - Exam Right lower extremity: Incision is clean, dry, and intact. The foam dressing is in good condition. There is minimal soft tissue swelling and ecchymosis surrounding the medial and lateral aspects of the incision. Calf is soft, no tenderness with palpation. Plantar flexion, dorsiflexion, EHL, FHL are intact. Sensory exam to light touch throughout the extremity is intact, dorsal pedis pulses 2+. - Labs CBC & Chem 7: 10/21/23 05:43 Assessment and Plan Assessment: Postoperative day #2 status post right total knee arthroplasty Plan: Pain control, plan for discharge on [place] 10 mg / 325 mg DVT prophylaxis, aspirin 81 mg twice daily for 30 days Wound care instructions discussed, this to include icing and elevating, On-Q pain catheter use and showering instructions Encourage incentive spirometer PT/OT Medical recommendations appreciated Discharge planning: Plan for discharge home today with home health care Time with Patient: Less than 30
--- NOTE | 2023-10-22 10:36 | P.DS ---
Providers Date of admission: 10/20/2023 Expected date of discharge: 10/22/23 Attending physician: Haile Fernandez Consults: 10/20/23 15:37 Consult Physician Routine Consulting Provider: Katia Persaud Consult Reason/Comments: Medical management Do you want consulting provider notified?: Yes Primary care physician: Rogelio Mendez MD Hospital Course: Date of admission: 10/20/2023 Date of discharge: 10/22/2023 Admission diagnosis: Status post right total knee arthroplasty Discharge diagnosis: Same Attending physician: Dr. Fernandez Surgical procedures: Right total knee arthroplasty Brief history: Patient is a 53-year-old with a history of progressive primary right knee osteoarthritis. At this point patient has failed conservative treatment measures and has opted to proceed with a elective right total knee arthroplasty. Hospital course: Details of patient's surgery can be found in operative report. Patient tolerated the procedure well and was subsequently transported to orthopedic floor. Patient's orthopeidc and medical care was provided daily. Patient had daily laboratory tests performed for evaluation of overall blood counts. Patient had daily physical therapy to include strengthening range of motion as well as education with walker ambulation. Patient was treated with Lovenox for their postoperative DVT prophylaxis during their inpatient stay. Patient was noted to have a relatively uneventful postoperative course. Patient reported satisfactory pain control with oral pain medications by postoperative day 1. Patient showed satisfactory progress with physical therapy. Patient moved steadily through the program and had no difficulty meeting the goals by postoperative day 2. Given patient's otherwise satisfactory course and having met physical therapy goals, plan is to discharge patient home on postoperative day 2. Discharge condition/disposition: Patient will be discharged home in stable condition. Discharge medications: Instructions are given on resumption of patient's normal daily medications per primary care recommendation, in addition patient will be prescribed [place] 10 mg / 325 mg, senna S, aspirin 81 mg. Discharge instructions: 1. Wound care and infection precautions, keep incision dry and covered while showering, no lotions, creams, moisturizers. No soaking, tubs, pools, hottubs. Do not scrub over the incision. 2. Weight-bear as tolerated with walker / cane until follow-up. 3. Ice and elevate when necessary. Do not exceed 20 minutes per hour with ice pack. 4. Utilize compression sleeve until seen at first follow up appointment. 5. Visiting nursing care. 6. Home physical therapy including home CPM. 7. Pain meds and anticoagulants per prescription. 8. Pain medication has potential to cause constipation. Increase oral fluid and fiber intake. Contact primary care provider if you have not had a bowel movement within 48 hours after discharge 9. No anti-inflammatory medication until discussed at first post operative visit, this including Motrin, Aleve, Mobic, Diclofenac. 10. Follow up in office at 2 weeks postop with Sandeep Leach PA-C/Kavon Juárez 11. Follow up with your primary care doctor 7-10 days after discharge. 12. Contact [facility] with any questions, . Procedures: Right total knee arthroplasty Patient Condition at Discharge: Good Plan - Discharge Summary Discharge Rx Participant: No New Discharge Prescriptions: New Aspirin [Adult Low Dose Aspirin EC] 81 mg PO BID #60 tab HYDROcodone/APAP 10-325MG [[place] 10-325] 1 tab PO Q6HR PRN 7 Days #28 tab PRN Reason: Pain Sennosides/Docusate Sodium [Senna-S 8.6-50 mg Tablet] 2 each PO DAILY PRN #30 tablet PRN Reason: Constipation No Action DULoxetine HCL [Cymbalta] 60 mg PO QAM Cyclobenzaprine [Flexeril] 10 mg PO TID PRN PRN Reason: Pain Topiramate [Topamax] 50 mg PO BID Ubrogepant [Ubrelvy] 100 mg PO BID PRN PRN Reason: Pain Linaclotide [Linzess] 290 mcg PO DAILY HYDROcodone/APAP 5-325MG [[place] 5-325] 1 tab PO BID PRN PRN Reason: Pain Galcanezumab-Gnlm [Emgality Pen] 120 mg SQ QMONTHLY modafiniL [Provigil] 100 mg PO QAM Meclizine [Antivert] 25 mg PO BID PRN PRN Reason: Vertigo Discharge Medication List Cyclobenzaprine [Flexeril] 10 mg PO TID PRN 06/24/22 [History] DULoxetine HCL [Cymbalta] 60 mg PO QAM 06/24/22 [History] Topiramate [Topamax] 50 mg PO BID 06/24/22 [History] Galcanezumab-Gnlm [Emgality Pen] 120 mg SQ QMONTHLY 02/21/23 [History] Ubrogepant [Ubrelvy] 100 mg PO BID PRN 02/21/23 [History] Linaclotide [Linzess] 290 mcg PO DAILY 07/08/23 [History] modafiniL [Provigil] 100 mg PO QAM 07/08/23 [History] HYDROcodone/APAP 5-325MG [[place] 5-325] 1 tab PO BID PRN 10/14/23 [History] Meclizine [Antivert] 25 mg PO BID PRN 10/14/23 [History] Aspirin [Adult Low Dose Aspirin EC] 81 mg PO BID #60 tab 10/22/23 [Rx] HYDROcodone/APAP 10-325MG [[place] 10-325] 1 tab PO Q6HR PRN 7 Days #28 tab 10/22/23 [Rx] Sennosides/Docusate Sodium [Senna-S 8.6-50 mg Tablet] 2 each PO DAILY PRN #30 tablet 10/22/23 [Rx] Follow up Appointment(s)/Referral(s): [facility] [NON-STAFF] - As Needed (Continuous Passive Motion knee machine) Rogelio Mendez MD [Primary Care Provider] - 1 Week Wilfrido Leach PAC [PHYSICIAN VIDEO PRODUCTION ASSISTANT] - 11/04/23 9:30 am [facility] Visiting Nurse, [NON-STAFF] - As Needed Patient Instructions/Handouts: Knee Replacement (DC), Knee Replacement (GEN) Activity/Diet/Wound Care/Special Instructions: Orthopedic Discharge Instructions: 1. Wound care and infection precautions, keep incision dry and covered while showering, no lotions, creams, moisturizers. No soaking, pools, hot tubs. Do not scrub over incision. 2. Weight-bear as tolerated with walker / cane until follow-up. 3. Ice and elevate when necessary. Do not exceed 20 minutes per hour with ice pack. 4. Utilize compression sleeve until seen at first follow up appointment. 5. Pain meds and anticoagulants per prescription. 6. Pain medication has potential to cause constipation. Increase oral fluid and fiber intake. Contact primary care provider if you have not had a bowel movement within 48 hours after discharge. 7. No anti-inflammatory medication until discussed at first post operative visit, this including Motrin, Aleve, Mobic, Diclofenac. 8. Follow up in office at 2 weeks postop with Sandeep Leach PA-C / Kavon Ponce PA-C 9. Follow up with your primary care doctor 7-10 days after discharge. 10. Contact [facility] with any questions, . Keep incision clean, dry, intact. While showering, cover silver foam dressing with Saran wrap. Keep silver foam dressing on for 7 days. It is okay to remove silver foam dressing beginning 10/27/2023. It is okay to shower directly over incision once dressing is removed. Discharge Disposition: HOME WITH HOME HEALTH SERVICES
--- NOTE | 2023-10-22 11:21 | XR ---
EXAMINATION TYPE: XR chest 2V DATE OF EXAM: 10/22/2023 11:18 AM CLINICAL INDICATION:Female, 53 years old with history of hypoxia; [facility] COMPARISON: None TECHNIQUE: XR chest 2V Frontal and lateral views of the chest. FINDINGS: Lungs/Pleura: There is no evidence of pleural effusion, focal consolidation, or pneumothorax. Pulmonary vascularity: Unremarkable. Heart/mediastinum: Cardiomediastinal silhouette is unremarkable. Musculoskeletal: No acute osseous pathology. IMPRESSION: No acute cardiopulmonary disease/process.
--- NOTE | 2023-10-22 14:23 | P.PN ---
Subjective Progress Note Date: 10/22/23 This is a pleasant 53-year-old female with medical history significant for MS, fibromyalgia, vertigo migraines, sleep apnea with CPAP use. Anxiety depression PTSD, quit smoking in 2019 and continues to vape. Patient comes into the hospital for a planned right total knee arthroplasty. Today is postoperative day #1. Patient is continue to report significant pain to the right knee rating it a 10 out of 10 and states that the current oral medications are not helping. She has not gotten up with physical therapy yet today. She is on a combination of [place] 5 mg every 6 hours, [place] 7.5 every 6 hours and [place] 10 every 6 hours additionally patient is on Flexeril, IV Dilaudid. He has no complaints of chest pain or shortness of breath no nausea vomiting diarrhea. She does have a mild dull migraine states that she takes Topamax for this and has been resumed. She is anticipating discharge home today if her pain improves. 10/22/2023 Patient is seen in follow-up today she is postoperative day #2 right total knee arthroplasty. She is continuing to report increased pain and sharp in nature was using IV Dilaudid throughout the evening and states that she did sleep well. Noted that her oxygen saturation did drop to about 90% today we did a chest x- ray which was negative for any acute findings she is not having shortness of breath no chest discomfort and her lungs are clear to auscultation. Encouraged patient to use her incentive spirometer on discharge 10 times an hour. Patient will be going home with home care services today she is receiving [place] for pain management and sent in a bowel regimen. Medically she is stable for discharge. Review of Systems Constitutional: Denied any fatigue denied any fever. Cardio vascular: denied any chest pain, palpitations Gastrointestinal: denied any nausea, vomiting, diarrhea Pulmonary: Denied any shortness of breath cough Neurologic denied any new focal deficits All inpatient medications were reviewed and appropriate changes in these me dications as dictated in the interval history and assessment and plan. PHYSICAL EXAMINATION: GENERAL: The patient is alert and oriented x3, not in any acute distress. Well developed, well nourished. HEENT: Pupils are round and equally reacting to light. EOMI. No scleral icterus. No conjunctival pallor. Normocephalic, atraumatic. No pharyngeal erythema. No thyromegaly. CARDIOVASCULAR: S1 and S2 present. No murmurs, rubs, or gallops. PULMONARY: Chest is clear to auscultation, no wheezing or crackles. ABDOMEN: Soft, nontender, nondistended, normoactive bowel sounds. No palpable organomegaly. MUSCULOSKELETAL: No joint swelling or deformity. Post surgical right knee. Ice packs in place. EXTREMITIES: No cyanosis, clubbing, or pedal edema. NEUROLOGICAL: Gross neurological examination did not reveal any focal deficits. SKIN: No rashes. Assessment and Plan Osteoarthritis postoperative day #2 right total knee arthroplsaty orthopedics is following. Hx of Multiple sclerosis Hx of fibromyalgia Hx of migraines maintained on ubrelvy, topamax, which have been resumed. Hx of sleep apnea with CPAP use. Anxiety/depression/PTSD Hx of smoking in the past currently vapes counseling provided. GI prophylaxis DVT prophylaxis as per primary Full Code Medically patient is doing well, resumed on home medications. Orthopedics. Recommending for patient to discharge on aspirin 81 mg twice a day for the next 30 days for DVT prophylaxis. Additionally she is sent in [place] for pain eusebio gement and [facility] for bowel regimen. Patient to continue on all other same home medications. Recommending to see her family doctor Dr. Rogelio Malik she has an appointment scheduled on October 27 at 11 AM. Patient will also follow-up with Sandeep Leach in the orthopedic office has an appointment scheduled for November 03 at 9:30 AM. She is set to go home with home care services with [facility] visiting nurses. Thank you kindly for this consultation. Thank you for this consultation. The impression and plan of care has been dictated by Drea Durán, Nurse Practitioner as directed. Dr. Jarod MD I have performed a history and physical examination and medical decision making of this patient, discussed the same with the dictator, and agree with the dictators assessment and plan as written, documented as a scribe. Based on total visit time, I have performed more than 50% of this visit. Objective - Vital Signs Vital signs: Vital Signs Temp 98.7 F 10/22/23 07:45 Pulse 87 10/22/23 07:45 Resp 16 10/22/23 07:45 BP 130/84 10/22/23 07:45 Pulse Ox 90 L 10/22/23 07:45 FiO2 Intake & Output 10/21/23 10/22/2310/22/24 18:59 06:59 18:59 Intake Total 1200 0 Balance 1200 0 Intake: Oral 1200 0 Other: # Voids 4 4 - Labs CBC & Chem 7: 10/21/23 05:43 Assessment and Plan Time with Patient: Less than 30
== END 2023-10-22 14:39 | disposition home health service (06) ==
LOC: OR 12:34 → 4SSUR 12:35 → 2ORMAIN 10-22 02:04 → 4SSUR 10-22 02:08
PROVIDERS: ADMIT Orthopaedic Surgery; ATTEND Orthopaedic Surgery
DX: M17.11 Unilateral primary osteoarthritis, right knee (principal); G43.909 Migraine, unspecified, not intractable, without status migrainosus; I10 Essential (primary) hypertension; G47.33 Obstructive sleep apnea (adult) (pediatric); G35 Multiple sclerosis; M79.7 Fibromyalgia; F43.10 Post-traumatic stress disorder, unspecified; F32.A Depression, unspecified; F41.9 Anxiety disorder, unspecified; Z79.899 Other long term (current) drug therapy; Z88.2 Allergy status to sulfonamides; F17.290 Nicotine dependence, other tobacco product, uncomplicated; Z91.048 Other nonmedicinal substance allergy status; Z96.652 Presence of left artificial knee joint; Z71.6 Tobacco abuse counseling
CPT/HCPCS: 96372 ×2; 97116; 97162; 64999; 64448; 85025; 73560; 71046; 27447; G0378 ×2; C1776; C1713 ×2; C1751; J2250; J1100; J0690 ×3; J2405; J2001; J3010; J1650 ×2; J1170 ×4; J2795; J1885; J2704

== ENCOUNTER 2023-12-04 16:03 | Emergency (ER) | payer MEDICARE, OTHER ==
[2023-12-04 16:23] VITALS: BP 133/84; RESP 18; TEMP 98.9
[2023-12-04] MEDS: HYDROmorphone 0.5 MG/0.5 ML SYRINGE IVP STA (17:03)
--- NOTE | 2023-12-04 17:12 | ED ---
GI Bleed HPI - General Chief complaint: GI Bleed Stated complaint: GI Issues Time Seen by Provider: 12/04/23 16:20 Source: patient, RN notes reviewed Mode of arrival: ambulatory Limitations: no limitations - History of Present Illness Initial comments: This is a 53-year-old female with a history of MS and colitis who presents to the ED with a chief complaint of blood in her stool. Patient states that she was admitted at [facility] for C. difficile and colitis and discharged on Friday (12/01/23). Patient states that she was discharged home on oral vancomycin 4 times a day. She states that she did not follow-up yet with GI specialist, called and left a voicemail at Dr. Lechuga's office stating she is coming to the ED. patient denies nausea, vomiting, fevers, dysuria, back pain. Endorses left- sided abdominal pain that is worse with movement, endorses multiple episodes of diarrhea with the last few episodes having blood present. - Related Data Home Medications Medication Instructions Recorded Confirmed Cyclobenzaprine [Flexeril] 10 mg PO TID PRN 06/24/22 10/20/23 DULoxetine HCL [Cymbalta] 60 mg PO QAM 06/24/22 10/20/23 Topiramate [Topamax] 50 mg PO BID 06/24/22 10/20/23 Galcanezumab-Gnlm [Emgality Pen] 120 mg SQ QMONTHLY 02/21/23 10/20/23 Ubrogepant [Ubrelvy] 100 mg PO BID PRN 02/21/23 10/20/23 Linaclotide [Linzess] 290 mcg PO DAILY 07/08/23 10/20/23 modafiniL [Provigil] 100 mg PO QAM 07/08/23 10/20/23 HYDROcodone/APAP 5-325MG [[place] 1 tab PO BID PRN 10/14/23 10/20/23 5-325] Meclizine [Antivert] 25 mg PO BID PRN 10/14/23 10/20/23 Previous Rx's Medication Instructions Recorded Aspirin [Adult Low Dose Aspirin EC] 81 mg PO BID #60 tab 10/22/23 HYDROcodone/APAP 10-325MG [[place] 1 tab PO Q6HR PRN 7 Days #28 tab 10/22/23 10-325] Multivitamins, Thera [Multivitamin 1 each PO DAILY@1200 #30 tab 10/22/23 (formulary)] Sennosides/Docusate Sodium 2 each PO DAILY PRN #30 tablet 10/22/23 [Senna-S 8.6-50 mg Tablet] Allergies Allergy/AdvReac Type Severity Reaction Status Date / Time nickel Allergy Rash/Hives Verified 12/04/23 16:20 Review of Systems ROS Statement: Those systems with pertinent positive or pertinent negative responses have been documented in the HPI. ROS Other: All systems not noted in ROS Statement are negative. Past Medical History Past Medical History: Fibromyalgia, Sleep Apnea/CPAP/BIPAP Additional Past Medical History / Comment(s): vertigo, ms, migraines History of Any Multi-Drug Resistant Organisms: None Reported Past Surgical History: Hysterectomy, Joint Replacement, Orthopedic Surgery Additional Past Surgical History / Comment(s): lower back and neck, lft knee scope , right knee scope 2022 Past Anesthesia/Blood Transfusion Reactions: No Reported Reaction Additional Past Anesthesia/Blood Transfusion Reaction / Comment(s): no blood transfusion Past Psychological History: No Psychological Hx Reported, Anxiety, Depression, PTSD Smoking Status: Vaper Past Alcohol Use History: None Reported Past Drug Use History: None Reported - Past Family History Father Additional Family Medical History / Comment(s): Clotting problem per patient. General Exam Limitations: no limitations General appearance: alert, in no apparent distress Head exam: Present: atraumatic, normocephalic, normal inspection Eye exam: Present: normal appearance, PERRL, EOMI. Absent: scleral icterus, conjunctival injection, periorbital swelling ENT exam: Present: normal exam, mucous membranes moist Neck exam: Present: normal inspection. Absent: tenderness, meningismus, lymphadenopathy Respiratory exam: Present: normal lung sounds bilaterally. Absent: respiratory distress, wheezes, rales, rhonchi, stridor Cardiovascular Exam: Present: regular rate, normal rhythm, normal heart sounds. Absent: systolic murmur, diastolic murmur, rubs, gallop, clicks GI/Abdominal exam: Present: soft, tenderness (left sided), normal bowel sounds. Absent: distended, guarding, rebound, rigid Rectal exam: Present: normal inspection, heme (-) stool. Absent: hemorrhoids Extremities exam: Present: normal inspection, full ROM, normal capillary refill. Absent: tenderness, pedal edema, joint swelling, calf tenderness Back exam: Present: normal inspection Neurological exam: Present: alert, oriented X3, CN II-XII intact Psychiatric exam: Present: normal affect, normal mood Skin exam: Present: warm, dry, intact, normal color. Absent: rash Course Vital Signs 12/04/23 16:17 Temperature 98.9 F Pulse Rate 109 H Respiratory 18 Rate Blood Pressure 133/84 O2 Sat by Pulse 96 Oximetry Medical Decision Making - Medical Decision Making Was pt. sent in by a medical professional or institution (, PA, ASSOCIATE CHEMIST, urgent care, hospital, or [place] health care facility...) When possible be specific @ -No Did you speak to anyone other than the patient for history (EMS, parent, family, police, friend...)? What history was obtained from this source @ -No Did you review nursing and triage notes (agree or disagree)? Why? @ -I reviewed and agree with nursing and triage notes Were old charts reviewed (outside hosp., previous admission, EMS record, old EKG, old radiological studies, urgent care reports/EKG's, [place] health care facility records)? Report findings @ -No old charts were reviewed Differential Diagnosis (chest pain, altered mental status, abdominal pain women, abdominal pain men, vaginal bleeding, weakness, fever, dyspnea, syncope, headache, dizziness, GI bleed, back pain, seizure, CVA, palpatations, mental health, musculoskeletal)? @ -Differential Abdominal Pain Women: Appendicitis, Cholecystitis, diverticulosis, ischemic bowel, pancreatitis, hepatitis, UTI, gastroenteritis, AAA, incarcerated hernia, bowel obstruction, constipation, inflammatory bowel, hepatitis, peptic ulcer disease, splenic infarction, perforated viscus, vulvitis, ovarian torsion, PID, kidney stone, placenta abruption, this is not meant to be an all-inclusive list EKG interpreted by me (3pts min.). @ -None X-rays interpreted by me (1pt min.). @ -None done CT interpreted by me (1pt min.). @ -CT of the abdomen pelvis with contrast reveals contiguous wall thickening of the colon from rectum compatable with colitis. U/S interpreted by me (1pt. min.). @ -None done What testing was considered but not performed or refused? (CT, X-rays, U/S, labs)? Why? @ -None What meds were considered but not given or refused? Why? @ -None Did you discuss the management of the patient with other professionals (professionals i.e. , PA, ASSOCIATE CHEMIST, lab, RT, psych nurse, social psychologist, wharf hand, teacher, structural engineering drafting officer, case consultant)? Give summary @ -No Was smoking cessation discussed for >3mins.? @ -No Was critical care preformed (if so, how long)? @ -No Were there social determinants of health that impacted care today? How? (Homelessness, low income, unemployed, alcoholism, drug addiction, acosta sportation, low edu. Level, literacy, decrease access to med. care, penitentiary, rehab)? @ -No Was there de-escalation of care discussed even if they declined (Discuss DNR or withdrawal of care, Hospice)? DNR status @ -No What co-morbidities impacted this encounter? (DM, HTN, Smoking, COPD, CAD, Cancer, CVA, ARF, Chemo, Hep., AIDS, mental health diagnosis, sleep apnea, morbid obesity)? @ -MS, obesity Was patient admitted / discharged? Hospital course, mention meds given and route, prescriptions, significant lab abnormalities, going to OR and other pertinent info. @ -83-year-old female with history of colitis and abdominal pain. On examination patient was found to have left-sided abdominal pain that was worse with palpation, negative for rigidity or rebound tenderness. Patient's laboratory results Unremarkable for signs of leukocytosis, electrolytes within normal limits. Normal kidney and liver function. Patient patient CT findings consistent with diagnosis of C. difficile at this time. Patient's pain was controlled with dose of IV Dilaudid. Patient states that she was not taking pain medications prescribed at home for MS due to GI specialist advising against at this time. Due to patient's pain being well-controlled and normal laboratory results, patient is stable for discharge at this time. Discussed strict return parameters and red flag findings for patient return to the emergency department. Patient is agreeable with this. Patient will follow-up with GI specialist contact office in the morning for appointment this week. Discussed with Dr. Velazco Undiagnosed new problem with uncertain prognosis? @ -No Drug Therapy requiring intensive monitoring for toxicity (Heparin, Nitro, Insulin, Cardizem)? @ -No Were any procedures done? @ -No Diagnosis/symptom? @ -c diff infection, bloody diarrhea, colitis Acute, or Chronic, or Acute on Chronic? @ -acute Uncomplicated (without systemic symptoms) or Complicated (systemic symptoms)? @ -uncomplicated Side effects of treatment? @ -No Exacerbation, Progression, or Severe Exacerbation? @ -No Poses a threat to life or bodily function? How? (Chest pain, [place], [place], pneumonia, PE, COPD, DKA, ARF, appy, cholecystitis, CVA, Diverticulitis, Homicidal, Suicidal, threat to staff... and all critical care pts) @ -No - Lab Data Result diagrams: 12/04/23 17:05 12/04/23 17:05 Lab Results 12/04/23 12/04/23 12/04/23 Range/Units 17: 17: 17:05 WBC 9.6 (3.8-10.6) k/uL RBC 4.89 (3.80-5.40) m/uL Hgb 15.0 (11.4-16.0) gm/dL Hct 45.0 (34.0-46.0) % MCV 92.0 (80.0-100.0) fL MCH 30.6 (25.0-35.0) pg MCHC 33.3 (31.0-37.0) g/dL RDW 13.4 (11.5-15.5) % Plt Count 596 H (150-450) k/uL MPV 7.9 Neutrophils % 71 % Lymphocytes % 17 % Monocytes % 6 % Eosinophils % 3 % Basophils % 1 % Neutrophils # 6.8 (1.3-7.7) k/uL Lymphocytes # 1.6 (1.0-4.8) k/uL Monocytes # 0.6 (0-1.0) k/uL Eosinophils # 0.3 (0-0.7) k/uL Basophils # 0.1 (0-0.2) k/uL PT 9.9 L (10.0-12.5) sec INR 0.9 (<1.2) APTT 23.9 (22.0-30.0) sec Sodium 140 (137-145) mmol/L Potassium 4.0 (3.5-5.1) mmol/L Chloride 109 H (98-107) mmol/L Carbon Dioxide 20 L (22-30) mmol/L Anion Gap 11 mmol/L BUN 9 (7-17) mg/dL Creatinine 0.81 (0.52-1.04) mg/dL Est GFR (CKD-EPI)AfAm >90 (>60 ml/min/1.73 sqM) Est GFR (CKD-EPI)NonAf 83 (>60 ml/min/1.73 sqM) Glucose 108 H (74-99) mg/dL Calcium 10.0 (8.4-10.2) mg/dL Magnesium 2.1 (1.6-2.3) mg/dL Total Bilirubin 0.3 (0.2-1.3) mg/dL AST 34 (14-36) U/L ALT 34 (4-34) U/L Alkaline Phosphatase 136 H (38-126) U/L Total Protein 7.3 (6.3-8.2) g/dL Albumin 3.8 (3.5-5.0) g/dL Amylase 45 (30-110) U/L Lipase 241 (23-300) U/L Disposition Clinical Impression: Colitis, C. difficile colitis, Intestinal infection due to bacteria causing bloody diarrhea Narrative: Please return to the Emergency Department if symptoms worsen or any other concerns. Follow-up with GI specialist within the next 1 to 2 days for further evaluation. Continue with prescribed antibiotics for C. difficile infection. Disposition: HOME SELF-CARE Condition: Good Instructions (If sedation given, give patient instructions): Gastrointestinal Bleeding (ED) Is patient prescribed a controlled substance at d/c from ED?: No Referrals: Rogelio Mendez MD [Primary Care Provider] - 1-2 days Time of Disposition: 18:50
[2023-12-04 17:24] LABS: Basophils # (A) 0.1 k/uL (0-0.2); Basophils % (A) 1 %; Eosinophils # (A) 0.3 k/uL (0-0.7); Eosinophils % (A) 3 %; Lymphocytes # (A) 1.6 k/uL (1.0-4.8); Lymphocytes % (A) 17 %; MCH 30.6 pg (25.0-35.0); MCHC 33.3 g/dL (31.0-37.0); Mean Platelet Volume 7.9; Monocytes # (A) 0.6 k/uL (0-1.0); Monocytes % (A) 6 %; Neutrophils # (A) 6.8 k/uL (1.3-7.7); Neutrophils % (A) 71 %; Platelet Count 596 k/uL (150-450); RBC 4.89 m/uL (3.80-5.40); RDW 13.4 % (11.5-15.5); WBC 9.6 k/uL (3.8-10.6)
[2023-12-04 17:35] LABS: INR 0.9 (<1.2); Partial Thromboplastin Time 23.9 sec (22.0-30.0); Prothrombin Time 9.9 sec (10.0-12.5)
[2023-12-04 17:42] LABS: ALT 34 U/L (4-34); AST 34 U/L (14-36); African American GFR (CKD) >90 (>60 ml/min/1.73 sqM); Albumin 3.8 g/dL (3.5-5.0); Alkaline Phosphatase 136 U/L (38-126); Amylase 45 U/L (30-110); Anion Gap 11 mmol/L; Blood Urea Nitrogen 9 mg/dL (7-17); Carbon Dioxide 20 mmol/L (22-30); Chloride 109 mmol/L (98-107); Glucose 108 mg/dL (74-99); Lipase 241 U/L (23-300); Magnesium 2.1 mg/dL (1.6-2.3); Non-African American GFR(CKD) 83 (>60 ml/min/1.73 sqM); Sodium 140 mmol/L (137-145); Total Bilirubin 0.3 mg/dL (0.2-1.3); Total Protein 7.3 g/dL (6.3-8.2)
--- NOTE | 2023-12-04 18:04 | CT ---
EXAMINATION TYPE: CT abdomen pelvis w con DATE OF EXAM: 12/04/2023 COMPARISON: None HISTORY: blood in stool, hx of c diff CONTRAST: CT scan of the abdomen and pelvis is performed without Oral Contrast and with IV Contrast, patient in jected with 100 mL of Isovue 300. FINDINGS: LUNG BASES-: No visible nodule. No infiltrate. LIVER/GB: No calcified gallstones. There is mild fatty hepatic infiltration. No space occupying he patic lesion. Biliary tree is of normal caliber. PANCREAS: No inflammation. No distinct mass. SPLEEN: No splenic enlargement. No lesion seen. ADRENALS: No nodule. No thickening. KIDNEYS/BLADDER: No hydronephrosis. No nephrolithiasis. No distinct renal mass. Urinary bladder g rossly unremarkable. BOWEL: Contiguous wall thickening of the colon from the rectum to the cecum compatible with infectiou s colitis such as pseudomembranous colitis. Inflammatory vascular etiologies are also need differenti al diagnosis considered less likely. No evidence of perforation or abscess. Small bowel is of normal caliber. GENITAL ORGANS: No gross abnormality. LYMPH NODES: No greater than 1cm abdominal or pelvic lymph nodes are appreciated. AORTA: No significant abnormality. OSSEOUS STRUCTURES: Postoperative changes lumbar spine. OTHER: No significant additional abnormality is seen. IMPRESSION: 1. Contiguous wall thickening of the colon from the rectum to the cecum compatible with infectious co litis such as pseudomembranous colitis. Inflammatory vascular etiologies are also need differential d iagnosis considered less likely.
[2023-12-04 18:59] LABS: Appearance,Urine Clear (Clear); Bilirubin,Urine Negative (Negative); Blood,Urine Negative (Negative); Color,Urine Yellow; Glucose,Urine (UA) Negative (Negative); Ketones,Urine Negative (Negative); Leukocyte Esterase,Urine Negative (Negative); Nitrite,Urine Negative (Negative); Protein,Urine Trace (Negative); Urobilinogen,Urine <2.0 mg/dL (<2.0)
[2023-12-04 19:00] LABS: Specific Gravity,Urine >1.050 (1.001-1.035)
[2023-12-04] MEDS: SODIUM CHLORIDE 0.9% 1,000 ML IV STA (19:11)
[2023-12-04 20:36] VITALS: PULSE 98
== END 2023-12-04 20:02 | disposition home or self-care (01) ==
LOC: EC 16:03
DX: A04.72 Enterocolitis due to Clostridium difficile, not specified as recurrent (principal); G35 Multiple sclerosis; E66.9 Obesity, unspecified; F17.290 Nicotine dependence, other tobacco product, uncomplicated; Z68.41 Body mass index [BMI] 40.0-44.9, adult; Z91.09 Other allergy status, other than to drugs and biological substances
CPT/HCPCS: 36415; 80053; 82150; 83690; 83735; 85025; 85610; 85730; 81003; 74177; 99285; 96374; 96361; J1170; Q9967

== ENCOUNTER 2024-01-05 14:42 | Inpatient (IN) | payer MEDICARE, OTHER ==
--- NOTE | 2024-01-05 15:45 | ED ---
General Adult HPI - General Chief complaint: Urogenital Stated complaint: UTI/Cdiff Time Seen by Provider: 01/05/24 15:24 Source: patient, family, RN notes reviewed Mode of arrival: wheelchair Limitations: no limitations - History of Present Illness Initial comments: 53 year old female presents to the emergency department for evaluation of dysuria, urinary frequency. Patient states that this started on Friday. She has not gotten any relief from this. Patient states that she has been dealing with Cdiff for the past 2 months. She follows with Dr. Lechuga. She is currently on PO vancomycin. She admits to diffuse abdominal discomfort, hematochezia. - Related Data Home Medications Medication Instructions Recorded Confirmed Cyclobenzaprine [Flexeril] 10 mg PO BID PRN 06/24/22 12/04/23 Topiramate [Topamax] 50 mg PO BID 06/24/22 12/04/23 Galcanezumab-Gnlm [Emgality Pen] 120 mg SQ Q30D 02/21/23 12/04/23 Ubrogepant [Ubrelvy] 100 mg PO BID PRN 02/21/23 12/04/23 modafiniL [Provigil] 100 mg PO DAILY 07/08/23 12/04/23 HYDROcodone/APAP 5-325MG [[place] 1 tab PO BID 10/14/23 12/04/23 5-325] Cholestyramine (with Sugar) 4 gm PO DAILY@1500 12/04/23 12/04/23 [Questran] DULoxetine HCL [Cymbalta] 60 mg PO DAILY 12/04/23 12/04/23 Ocrelizumab [Ocrevus] 600 mg IV DIRECTED 12/04/23 12/04/23 Ondansetron Odt [Zofran Odt] 8 mg PO BID PRN 12/04/23 12/04/23 Vancomycin HCl [Vancocin HCl] 125 mg PO Q6H 12/04/23 12/04/23 Allergies Allergy/AdvReac Type Severity Reaction Status Date / Time nickel Allergy Rash/Hives Verified 12/04/23 19:42 Review of Systems ROS Statement: Those systems with pertinent positive or pertinent negative responses have been documented in the HPI. ROS Other: All systems not noted in ROS Statement are negative. Past Medical History Past Medical History: Fibromyalgia, Sleep Apnea/CPAP/BIPAP Additional Past Medical History / Comment(s): vertigo, ms, migraines. cdiff History of Any Multi-Drug Resistant Organisms: None Reported Past Surgical History: Hysterectomy, Joint Replacement, Orthopedic Surgery Additional Past Surgical History / Comment(s): lower back and neck, lft knee scope , right knee scope 2022 Past Anesthesia/Blood Transfusion Reactions: No Reported Reaction Additional Past Anesthesia/Blood Transfusion Reaction / Comment(s): no blood transfusion Past Psychological History: No Psychological Hx Reported, Anxiety, Depression, PTSD Smoking Status: Vaper Past Alcohol Use History: None Reported Past Drug Use History: None Reported - Past Family History Father Additional Family Medical History / Comment(s): Clotting problem per patient. General Exam Limitations: no limitations General appearance: alert, in no apparent distress Head exam: Present: atraumatic, normocephalic, normal inspection Eye exam: Present: normal appearance, PERRL, EOMI. Absent: scleral icterus, conjunctival injection, periorbital swelling ENT exam: Present: normal exam, mucous membranes moist Neck exam: Present: normal inspection. Absent: tenderness, meningismus, lymphadenopathy Respiratory exam: Present: wheezes. Absent: respiratory distress, rales, rhonchi, stridor Cardiovascular Exam: Present: regular rate, normal rhythm, normal heart sounds. Absent: systolic murmur, diastolic murmur, rubs, gallop, clicks GI/Abdominal exam: Present: soft, tenderness (diffuse), hyperactive bowel sounds. Absent: distended, guarding, rebound, rigid Back exam: Present: normal inspection Neurological exam: Present: alert, oriented X3 Psychiatric exam: Present: normal affect, normal mood Skin exam: Present: warm, dry, intact, normal color. Absent: rash Course Vital Signs 01/05/24 14:44 Temperature 98.8 F Pulse Rate 105 H Respiratory 20 Rate Blood Pressure 142/84 O2 Sat by Pulse 98 Oximetry Medical Decision Making - Medical Decision Making Was pt. sent in by a medical professional or institution (, PA, LICENSED OCCUPATIONAL THERAPY ASSISTANT, urgent care, hospital, or retirement...) When possible be specific @ -No Did you speak to anyone other than the patient for history (EMS, parent, family, police, friend...)? What history was obtained from this source @ -No Did you review nursing and triage notes (agree or disagree)? Why? @ -I reviewed and agree with nursing and triage notes Were old charts reviewed (outside hosp., previous admission, EMS record, old EKG, old radiological studies, urgent care reports/EKG's, retirement records)? Report findings @ -No old charts were reviewed Differential Diagnosis (chest pain, altered mental status, abdominal pain women, abdominal pain men, vaginal bleeding, weakness, fever, dyspnea, syncope, headache, dizziness, GI bleed, back pain, seizure, CVA, palpatations, mental health, musculoskeletal)? @ -Differential Abdominal Pain Women: Appendicitis, Cholecystitis, diverticulosis, ischemic bowel, pancreatitis, hepatitis, UTI, gastroenteritis, AAA, incarcerated hernia, bowel obstruction, constipation, inflammatory bowel, hepatitis, peptic ulcer disease, splenic infarction, perforated viscus, vulvitis, ovarian torsion, PID, kidney stone, placenta abruption, this is not meant to be an all-inclusive list EKG interpreted by me (3pts min.). @ -None X-rays interpreted by me (1pt min.). @ -None done CT interpreted by me (1pt min.). @ -None done U/S interpreted by me (1pt. min.). @ -None done What testing was considered but not performed or refused? (CT, X-rays, U/S, labs)? Why? @ -None What meds were considered but not given or refused? Why? @ -None Did you discuss the management of the patient with other professionals (p mejiafessionalroseann i.e. , PA, LICENSED OCCUPATIONAL THERAPY ASSISTANT, lab, RT, psych nurse, manager social responsibility, program strategist, teacher, police liaison officer, correctional casework specialist)? Give summary @ -Management discussed with Dr. Mills with [facility] who is accepting of the admission with ID consultation Was smoking cessation discussed for >3mins.? @ -No Was critical care preformed (if so, how long)? @ -No Were there social determinants of health that impacted care today? How? (Homelessness, low income, unemployed, alcoholism, drug addiction, transportation, low edu. Level, literacy, decrease access to med. care, shelter, rehab)? @ -No Was there de-escalation of care discussed even if they declined (Discuss DNR or withdrawal of care, Hospice)? DNR status @ -No What co-morbidities impacted this encounter? (DM, HTN, Smoking, COPD, CAD, Cancer, CVA, ARF, Chemo, Hep., AIDS, mental health diagnosis, sleep apnea, morbid obesity)? @ -None Was patient admitted / discharged? Hospital course, mention meds given and route, prescriptions, significant lab abnormalities, going to OR and other pertinent info. @ -Admitted. Presented to the emergency department for evaluation for evaluation of dysuria, urinary frequency. Symptoms have been going on since Friday. Patient does report that she is currently being treated for C. difficile colitis with oral vancomycin. She follows with Dr. Lechuga for this. She states that she has not received any antibiotics yet. Laboratory studies obtained. CBC shows normal WBC at 10.5, hemoglobin changed from 15-11 over the course of 1 month. UA is positive for nitrate, small leukocyte Estrace, WBCs. Patient will be admitted for urinary tract infection treatment with infectious disease consultation. Case was discussed with Dr. Mills with [facility] who is accepting of admission. Case discussed with Dr. Christopher Undiagnosed new problem with uncertain prognosis? @ -No Drug Therapy requiring intensive monitoring for toxicity (Heparin, Nitro, Insulin, Cardizem)? @ -No Were any procedures done? @ -No Diagnosis/symptom? @ -cdiff colitis, UTI Acute, or Chronic, or Acute on Chronic? @ -acute Uncomplicated (without systemic symptoms) or Complicated (systemic symptoms)? @ -uncomplicated Side effects of treatment? @ -No Exacerbation, Progression, or Severe Exacerbation? @ -No Poses a threat to life or bodily function? How? (Chest pain, USA, ID, pneumonia, PE, COPD, DKA, ARF, appy, cholecystitis, CVA, Diverticulitis, Homicidal, Suicidal, threat to staff... and all critical care pts) @ -No - Lab Data Result diagrams: 01/05/24 16:10 01/05/24 16:10 Lab Results 01/05/24 01/05/24 01/05/24 Range/Units 15:41 16:10 16:10 WBC 10.5 (3.8-10.6) k/uL RBC 3.78 L (3.80-5.40) m/uL Hgb 11.0 L D (11.4-16.0) gm/dL Hct 36.0 (34.0-46.0) % MCV 95.1 (80.0-100.0) fL MCH 29.0 (25.0-35.0) pg MCHC 30.5 L (31.0-37.0) g/dL RDW 15.6 H (11.5-15.5) % Plt Count 769 H (150-450) k/uL MPV 7.2 Neutrophils % 69 % Lymphocytes % 17 % Monocytes % 7 % Eosinophils % 3 % Basophils % 1 % Neutrophils # 7.2 (1.3-7.7) k/uL Lymphocytes # 1.8 (1.0-4.8) k/uL Monocytes # 0.8 (0-1.0) k/uL Eosinophils # 0.4 (0-0.7) k/uL Basophils # 0.1 (0-0.2) k/uL Hypochromasia Slight PT (10.0-12.5) sec INR (<1.2) APTT (22.0-30.0) sec Sodium 139 (137-145) mmol/L Potassium 4.0 (3.5-5.1) mmol/L Chloride 111 H (98-107) mmol/L Carbon Dioxide 20 L (22-30) mmol/L Anion Gap 8 mmol/L BUN 8 (7-17) mg/dL Creatinine 0.68 (0.52-1.04) mg/dL Est GFR (CKD-EPI)AfAm >90 (>60 ml/min/1.73 sqM) Est GFR (CKD-EPI)NonAf >90 (>60 ml/min/1.73 sqM) Glucose 89 (74-99) mg/dL Plasma Lactic Acid [place] (0.7-2.0) mmol/L Calcium 8.5 (8.4-10.2) mg/dL Total Bilirubin 0.1 L (0.2-1.3) mg/dL AST 18 (14-36) U/L ALT 13 (4-34) U/L Alkaline Phosphatase 113 (38-126) U/L Total Protein 6.2 L (6.3-8.2) g/dL Albumin 2.7 L (3.5-5.0) g/dL Amylase 39 (30-110) U/L Lipase 136 (23-300) U/L Urine Color Yellow Urine Appearance Clear (Clear) Urine pH 6.0 (5.0-8.0) Ur Specific [place] 1.014 (1.001-1.035) Urine Protein Trace H (Negative) Urine Glucose (UA) Negative (Negative) Urine Ketones Negative (Negative) Urine Blood Negative (Negative) Urine Nitrite Positive H (Negative) Urine Bilirubin Negative (Negative) Urine Urobilinogen <2.0 (<2.0) mg/dL Ur Leukocyte Esterase Small H (Negative) Urine RBC 4 (0-5) /hpf Urine WBC 11 H (0-5) /hpf Ur Squamous Epith Cells 1 (0-4) /hpf Urine Bacteria Moderate H (None) /hpf Urine Mucus Moderate H (None) /hpf 01/05/24 01/05/24 Range/Units 16:10 16:10 WBC (3.8-10.6) k/uL RBC (3.80-5.40) m/uL Hgb (11.4-16.0) gm/dL Hct (34.0-46.0) % MCV (80.0-100.0) fL MCH (25.0-35.0) pg MCHC (31.0-37.0) g/dL RDW (11.5-15.5) % Plt Count (150-450) k/uL MPV Neutrophils % % Lymphocytes % % Monocytes % % Eosinophils % % Basophils % % Neutrophils # (1.3-7.7) k/uL Lymphocytes # (1.0-4.8) k/uL Monocytes # (0-1.0) k/uL Eosinophils # (0-0.7) k/uL Basophils # (0-0.2) k/uL Hypochromasia PT 9.7 L (10.0-12.5) sec INR 0.9 (<1.2) APTT 24.0 (22.0-30.0) sec Sodium (137-145) mmol/L Potassium (3.5-5.1) mmol/L Chloride (98-107) mmol/L Carbon Dioxide (22-30) mmol/L Anion Gap mmol/L BUN (7-17) mg/dL Creatinine (0.52-1.04) mg/dL Est GFR (CKD-EPI)AfAm (>60 ml/min/1.73 sqM) Est GFR (CKD-EPI)NonAf (>60 ml/min/1.73 sqM) Glucose (74-99) mg/dL Plasma Lactic Acid [place] 1.8 (0.7-2.0) mmol/L Calcium (8.4-10.2) mg/dL Total Bilirubin (0.2-1.3) mg/dL AST (14-36) U/L ALT (4-34) U/L Alkaline Phosphatase (38-126) U/L Total Protein (6.3-8.2) g/dL Albumin (3.5-5.0) g/dL Amylase (30-110) U/L Lipase (23-300) U/L Urine Color Urine Appearance (Clear) Urine pH (5.0-8.0) Ur Specific [place] (1.001-1.035) Urine Protein (Negative) Urine Glucose (UA) (Negative) Urine Ketones (Negative) Urine Blood (Negative) Urine Nitrite (Negative) Urine Bilirubin (Negative) Urine Urobilinogen (<2.0) mg/dL Ur Leukocyte Esterase (Negative) Urine RBC (0-5) /hpf Urine WBC (0-5) /hpf Ur Squamous Epith Cells (0-4) /hpf Urine Bacteria (None) /hpf Urine Mucus (None) /hpf Disposition Clinical Impression: Urinary tract infection, Clostridium difficile colitis Disposition: ADMITTED IP TO THIS HOSP Condition: Stable Is patient prescribed a controlled substance at d/c from ED?: No Referrals: Rogelio Mendez MD [Primary Care Provider] - 1-2 days
[2024-01-05] MEDS: SODIUM CHLORIDE 0.9% 2,000 ML IV STA (16:17)
[2024-01-05] MEDS: MORPHINE SULFATE 4 MG/ML SYRINGE IVP STA (16:19)
[2024-01-05 16:34] LABS: ALT 13 U/L (4-34); AST 18 U/L (14-36); African American GFR (CKD) >90 (>60 ml/min/1.73 sqM); Albumin 2.7 g/dL (3.5-5.0); Alkaline Phosphatase 113 U/L (38-126); Amylase 39 U/L (30-110); Anion Gap 8 mmol/L; Blood Urea Nitrogen 8 mg/dL (7-17); Calcium 8.5 mg/dL (8.4-10.2); Carbon Dioxide 20 mmol/L (22-30); Chloride 111 mmol/L (98-107); Glucose 89 mg/dL (74-99); Lipase 136 U/L (23-300); Non-African American GFR(CKD) >90 (>60 ml/min/1.73 sqM); Sodium 139 mmol/L (137-145); Total Bilirubin 0.1 mg/dL (0.2-1.3); Total Protein 6.2 g/dL (6.3-8.2)
[2024-01-05 16:35] LABS: Basophils # (A) 0.1 k/uL (0-0.2); Basophils % (A) 1 %; Eosinophils # (A) 0.4 k/uL (0-0.7); Eosinophils % (A) 3 %; Hypochromasia Slight; Lymphocytes # (A) 1.8 k/uL (1.0-4.8); Lymphocytes % (A) 17 %; MCHC 30.5 g/dL (31.0-37.0); MCV 95.1 fL (80.0-100.0); Mean Platelet Volume 7.2; Monocytes # (A) 0.8 k/uL (0-1.0); Monocytes % (A) 7 %; Neutrophils # (A) 7.2 k/uL (1.3-7.7); Neutrophils % (A) 69 %; Platelet Count 769 k/uL (150-450); RBC 3.78 m/uL (3.80-5.40); RDW 15.6 % (11.5-15.5); WBC 10.5 k/uL (3.8-10.6)
[2024-01-05 16:39] LABS: INR 0.9 (<1.2); Prothrombin Time 9.7 sec (10.0-12.5)
[2024-01-05 17:42] LABS: Appearance,Urine Clear (Clear); Bacteria,Urine Moderate /hpf; Bilirubin,Urine Negative (Negative); Blood,Urine Negative (Negative); Color,Urine Yellow; Glucose,Urine (UA) Negative (Negative); Ketones,Urine Negative (Negative); Leukocyte Esterase,Urine Small (Negative); Mucus,Urine Moderate /hpf; Nitrite,Urine Positive (Negative); Protein,Urine Trace (Negative); RBC,Urine 4 /hpf (0-5); Specific Gravity,Urine 1.014 (1.001-1.035); Squamous Epithelial Cell,Urine 1 /hpf (0-4); Urobilinogen,Urine <2.0 mg/dL (<2.0); WBC,Urine 11 /hpf (0-5)
[2024-01-05] MEDS ORDERED: GENTAMICIN 80 MG in SODIUM CHLORIDE 0.9% 100 ML IVPB ONE (18:29)
[2024-01-05] MEDS ORDERED: NALOXONE 0.4 MG/ML 1 ML VIAL IV PRN (18:32)
[2024-01-05] MEDS ORDERED: ACETAMINOPHEN TAB 325 MG TAB PO PRN (18:32)
[2024-01-05] MEDS: HYDROmorphone 1 MG/ML 1 ML SYRINGE IVP STA (20:12)
[2024-01-05] MEDS: diphenhydrAMINE 50 MG/ML 1 ML VIAL IVP STA (20:15)
[2024-01-05] MEDS: SODIUM CHLORIDE 0.9% 1,000 ML IV SCH (21:15)
[2024-01-05] MEDS: GENTAMICIN 400 MG in SODIUM CHLORIDE 0.9% 100 ML IVPB ONE (22:16)
[2024-01-05] MEDS: HYDROmorphone 0.5 MG/0.5 ML SYRINGE IVP PRN (22:26)
[2024-01-06] MEDS: MORPHINE SULFATE 4 MG/ML SYRINGE IV PRN (02:10)
[2024-01-06 11:50] LABS: African American GFR (CKD) >90 (>60 ml/min/1.73 sqM); Non-African American GFR(CKD) >90 (>60 ml/min/1.73 sqM)
--- NOTE | 2024-01-06 11:59 | P.CONS ---
History of Present Illness - Reason for Consult Consult date: 01/06/24 C. difficile colitis strict Requesting physician: Mallory Haywood - Chief Complaint Urinary tract infection - History of Present Illness This is a pleasant 53-year-old female with history of recurrent urinary tract infections, fibromyalgia, sleep apnea and C. difficile colitis. Patient had presented to the emergency department for concerns of urinary tract infection. States that starting on Friday she started getting some lower pelvic pressure wrapping around to her flank as well as burning with urination. Symptoms persisted and she called her primary care physician who told her to come to the emergency department for further evaluation and possible antibiotics. Patient apparently had knee surgery back in September of this year followed by her urinary tract infection and had been on antibiotics. Following that she was diagnosed with C. difficile colitis about 2 months ago and has seen Dr. Lechuga in the outpatient setting. She is currently on vancomycin 250 mg twice a day. She states that diarrhea may come multiple times during the day usually after eating and can be associated with bloody stools. She currently denies any blood in her urine, states that she is getting lower abdominal and pelvic discomfort as well as flank pain. States that she has burning with urination. Denies any fevers or chills. States appetite has been good. Review of Systems REVIEW OF SYSTEMS: CARDIOPULMONARY: No chest pain or shortness of breath. Gastrointestinal: No abdominal pain. No nausea or vomiting. No hematemesis, coffee-ground emesis. Diarrhea, hematochezia. GENITOURINARY: Dysuria and urinary frequency since Friday. Flank pain. No hematuria. MUSCULOSKELETAL: Reports normal range of motion., Joint pain. SKIN: No rashes. No jaundice. ENDOCRINE: No chills, fevers. No excessive weight gain or loss. No polydipsia or polyuria. PSYCHIATRIC: Unremarkable. NEUROLOGY: No change in mental status. Denies dizziness, headache. ENT: Vision unremarkable. CONSTITUTIONAL: No recent weight loss. No fever, chills, night sweats. Past Medical History Past Medical History: Fibromyalgia, Sleep Apnea/CPAP/BIPAP Additional Past Medical History / Comment(s): vertigo, ms, migraines. cdiff History of Any Multi-Drug Resistant Organisms: None Reported Past Surgical History: Hysterectomy, Joint Replacement, Orthopedic Surgery Additional Past Surgical History / Comment(s): lower back and neck, lft knee scope , right knee scope 2022 Past Anesthesia/Blood Transfusion Reactions: No Reported Reaction Additional Past Anesthesia/Blood Transfusion Reaction / Comm: no blood transfusion Past Psychological History: No Psychological Hx Reported, Anxiety, Depression, PTSD Smoking Status: Vaper Past Alcohol Use History: None Reported Past Drug Use History: None Reported - Past Family History Father Additional Family Medical History / Comment(s): Clotting problem per patient. Medications and Allergies Home Medications Medication Instructions Recorded Confirmed Type Topiramate [Topamax] 50 mg PO BID 06/24/22 01/05/24 History DULoxetine HCL [Cymbalta] 60 mg PO DAILY 12/04/23 01/05/24 History Ocrelizumab [Ocrevus] 600 mg IV DIRECTED 12/04/23 01/05/24 History Vancomycin HCl [Vancocin HCl] See Taper PO DIRECTED 01/05/24 01/05/24 History Allergies Allergy/AdvReac Type Severity Reaction Status Date / Time nickel Allergy Rash/Hives Verified 01/05/24 20:05 Physical Exam Vitals: Vital Signs Temp Pulse Resp BP Pulse Ox 01/06/24 02:00 83 18 118/77 95 01/05/24 21:10 98.4 F 85 17 121/76 95 01/05/24 18:57 98.1 F 86 18 107/68 95 01/05/24 14:44 98.8 F 105 H 20 142/84 98 General appearance: The patient is alert, oriented, appears in no acute distress. HET: Head is normocephalic and atraumatic. Conjunctiva pink. Sclera anicteric. Neck: Supple without lymphadenopathy. Trachea midline. Heart: Regular. Lungs: Equal expansion, normal respiratory effort. Abdomen: Soft, nontender, nondistended. Skin: No rashes. No jaundice. Extremities: Normal skin color and turgor. No pedal edema. Neurological: No focal deficits. Alert and oriented x3. Results CBC & Chem 7: 01/05/24 16:10 01/05/24 16:10 Labs: Abnormal Lab Results - Last 24 Hours (Table) 01/05/24 01/05/24 01/05/24 Range/Units 15:41 16:10 16:10 RBC 3.78 L (3.80-5.40) m/uL Hgb 11.0 L D (11.4-16.0) gm/dL MCHC 30.5 L (31.0-37.0) g/dL RDW 15.6 H (11.5-15.5) % Plt Count 769 H (150-450) k/uL PT (10.0-12.5) sec Chloride 111 H (98-107) mmol/L Carbon Dioxide 20 L (22-30) mmol/L Total Bilirubin 0.1 L (0.2-1.3) mg/dL Total Protein 6.2 L (6.3-8.2) g/dL Albumin 2.7 L (3.5-5.0) g/dL Urine Protein Trace H (Negative) Urine Nitrite Positive H (Negative) Ur Leukocyte Esterase Small H (Negative) Urine WBC 11 H (0-5) /hpf Urine Bacteria Moderate H (None) /hpf Urine Mucus Moderate H (None) /hpf 01/05/24 Range/Units 16:10 RBC (3.80-5.40) m/uL Hgb (11.4-16.0) gm/dL MCHC (31.0-37.0) g/dL RDW (11.5-15.5) % Plt Count (150-450) k/uL PT 9.7 L (10.0-12.5) sec Chloride (98-107) mmol/L Carbon Dioxide (22-30) mmol/L Total Bilirubin (0.2-1.3) mg/dL Total Protein (6.3-8.2) g/dL Albumin (3.5-5.0) g/dL Urine Protein (Negative) Urine Nitrite (Negative) Ur Leukocyte Esterase (Negative) Urine WBC (0-5) /hpf Urine Bacteria (None) /hpf Urine Mucus (None) /hpf Assessment and Plan (1) Clostridium difficile colitis Narrative/Plan: 53-year-old female following with gastroenterology for C. difficile colitis following antibiotic treatment for urinary tract infection and knee surgery in September of this year. Patient had remained positive for C. difficile after initial treatment. Last time tested she states she believes about 2 weeks ago. She remains on oral vancomycin 250 mg she is on a taper dose and is currently taking twice a day for 2-week duration then will continue with once daily for 2 weeks. Will repeat stool for C. difficile. Continue with current regimen. Infectious disease also on consultation, appreciate their recommendations. She also did have a recent CT abdomen and pelvis on 12/04/2023 which reviewed ported contentious wall thickening from colon to cecum which can be seen with infecti ous colitis. Current Visit: Yes Status: Acute Code(s): A04.72 - ENTEROCOLITIS D/T CLOSTRIDIUM DIFFICILE, NOT SPCF RECUR SNOMED Code(s): 494775415 (2) Urinary tract infection Current Visit: Yes Status: Acute Code(s): N39.0 - URINARY TRACT INFECTION, SITE NOT SPECIFIED SNOMED Code(s): 38808424 Plan: 1. Continue symptomatic and supportive care 2. Diet as tolerated 3. Continue vancomycin home medications as prescribed 4. Continue with recommendations from infectious disease for urinary tract infection 5. Repeat stool for C. difficile 6. Rest of medical management per primary medical team Thank you for this consultation, we will continue to follow. Dr. Wero Lechuga I agree with the dictator's note, documented as a scribe by Aleyda Juárez.
[2024-01-06] MEDS: PHENAZOPYRIDINE 100 MG TAB PO SCH (14:07)
[2024-01-06] MEDS: IOPAMIDOL CONTRAST (ORAL USE) VIAL PO PRN (14:12)
[2024-01-06] MEDS: VANCOMYCIN 125 MG CAPSULE PO SCH ×2 (14:38)
[2024-01-06] MEDS: PANTOPRAZOLE 40 MG/10 ML VIAL IVP SCH (14:43)
[2024-01-06] MEDS: DULoxetine HCL 60 MG CAPSULE.DR PO SCH (14:43)
[2024-01-06] MEDS: FIDAXOMICIN 200 MG TABLET PO SCH (14:44)
--- NOTE | 2024-01-06 14:45 | XR ---
EXAMINATION TYPE: XR chest 1V portable DATE OF EXAM: 01/06/2024 2:08 PM CLINICAL INDICATION:Female, 53 years old with history of chf; [facility] COMPARISON: Chest radiographs from 10/22/2023. TECHNIQUE: XR chest 1V portable Frontal view of the chest. FINDINGS: Lungs/Pleura: There is no evidence of pleural effusion, focal consolidation, or pneumothorax. Pulmonary vascularity: Unremarkable. Heart/mediastinum: Cardiomediastinal silhouette is unremarkable. Musculoskeletal: No acute osseous pathology. Other findings: None IMPRESSION: No acute cardiopulmonary disease/process.
--- NOTE | 2024-01-06 15:57 | CT ---
EXAMINATION TYPE: CT abdomen pelvis wo con DATE OF EXAM: 01/06/2024 COMPARISON: 12/04/2023 HISTORY: abdominal pain CT DLP: 1338.3 mGycm Examination of the solid and hollow viscera is limited given the lack of contrast. FINDINGS: LUNG BASES: No evidence for nodule. No evidence for infiltrate. LIVER/GB: The gallbladder is unremarkable. No space-occupying hepatic lesion. PANCREAS: No pancreatic mass identified. No inflammatory process seen. SPLEEN: No evidence for splenomegaly. No intrasplenic lesions seen. ADRENALS: No adrenal nodules identified. No evidence for thickening. KIDNEYS: No evidence for renal mass. No nephrolithiasis. No hydronephrosis. BOWEL: Contiguous wall thickening extending from the sigmoid colon through the hepatic flexure is red emonstrated. There is been interval improvement noted although persistent mild wall thickening involv ing the ascending colon and cecum and possibly the terminal ileum. Small bowel is of normal caliber. Lymph nodes: No evidence for adenopathy greater than 1 cm. Abdominal aorta: Atheromatous changes seen. No evidence for aneurysm. Genital organs: Hysterectomy changes. Other: Postoperative changes of lumbar laminectomy. IMPRESSION: 1. Given only mild improvement relative to prior study of 12/04/2023 inflammatory bowel disease such a s ulcerative colitis or Crohn's disease should be considered. Infectious colitis is not entirely excl uded however. Clinical correlation is recommended.
[2024-01-06] MEDS ORDERED: GENTAMICIN 400 MG in SODIUM CHLORIDE 0.9% 100 ML IVPB SCH (20:00)
[2024-01-06] MEDS: TOPIRAMATE 25 MG TAB PO SCH (20:37)
[2024-01-06] MEDS: HEPARIN SODIUM,PORCINE 5,000 UNIT/ML 1 ML VIAL SQ SCH (20:51)
--- NOTE | 2024-01-06 23:30 | HP ---
HISTORY AND PHYSICAL CHIEF COMPLAINT: Abdominal pain, diarrhea, C difficile, and urinary symptoms. HISTORY OF PRESENT ILLNESS: This is a 53-year-old woman with a past medical history of multiple medical problems including multiple sclerosis, had recent 2 knee surgeries. The patient also had recurrent UTI. The patient is on antibiotics. The patient was diagnosed with C difficile colitis as an outpatient. The patient has had tapering vancomycin dosage. A CT scan of the abdomen and pelvis done on 12/03 showed diffuse colitis including possibly pseudomembranous colitis. Because of increased symptoms of diarrhea, urinary frequency, and difficulty, the patient came to [facility] and the patient was admitted for further evaluation and treatment. The patient also had some hematochezia and diffuse abdominal discomfort also. There is no history of any fever, rigors, or chills at this time. The patient is followed by Dr. Rogelio Mendez. PAST MEDICAL HISTORY: History of DJD, knee surgeries recently, recurrent UTI, fibromyalgia, multiple sclerosis, on immunosuppression. HOME MEDICATIONS: Reviewed include, 1. Vancomycin p.o. taper. 2. Topamax. 3. Ocrevus. ALLERGIES: Nickel. FAMILY HISTORY: History of clotting problems. SOCIAL HISTORY: No history of smoking or vaping. REVIEW OF SYSTEMS: Fourteen-point review is negative except as mentioned earlier. PHYSICAL EXAMINATION: VITAL SIGNS: Pulse is 83, blood pressure 118/76, respirations 18. HEENT: Conjunctivae normal. NECK: No JVD. CARDIOVASCULAR: S1, S2. RESPIRATIONS: Clear to auscultation. ABDOMEN: Soft, obese, mild diffuse tenderness especially on the left side. No guarding. No rigidity. Bowel sounds present. No mass palpable. No ascites. LEGS: No edema. No swelling. NERVOUS SYSTEM: Nonfocal. SKIN: No ulcer, rash, bleeding. JOINTS: No active deforming arthropathy. LABORATORY DATA: WBC 10, hemoglobin is 11. Rest of the labs are noted. ASSESSMENT: 1. Clostridium difficile colitis with failure of outpatient treatment. 2. Diffuse colitis in the recent CAT scan. 3. Recurrent urinary tract infection. 4. History of recent knee surgery. 5. History of multiple sclerosis and immunosuppression. 6. History of sleep apnea. 7. Fibromyalgia. 8. Anxiety, depression, posttraumatic stress disorder. 9. Multiple medical issues. RECOMMENDATIONS AND DISCUSSION: This is a 53-year-old woman, who presented with multiple complex medical issues, we will monitor the patient closely. The patient was started on vancomycin, otherwise recommend CT scan of the abdomen, pelvis, repeat labs. I would also recommend obtain cultures, Infectious Disease as well as Gastroenterology evaluations. Prognosis guarded because of multiple complex medical issues. We would rather increase the vancomycin to 500 mg q.i.d. and continue to monitor. We will downgrade the diet as well. See orders for further details. Further recommendations to follow. MMODL / IJN: [id number] /
[2024-01-07 04:26] LABS: Basophils # (A) 0.1 k/uL (0-0.2); Basophils % (A) 1 %; Eosinophils # (A) 0.3 k/uL (0-0.7); Eosinophils % (A) 3 %; HGB 9.8 gm/dL (11.4-16.0); Hypochromasia Moderate; Lymphocytes # (A) 1.4 k/uL (1.0-4.8); Lymphocytes % (A) 15 %; MCH 28.4 pg (25.0-35.0); MCHC 29.8 g/dL (31.0-37.0); MCV 95.4 fL (80.0-100.0); Mean Platelet Volume 7.5; Monocytes # (A) 0.8 k/uL (0-1.0); Monocytes % (A) 9 %; Neutrophils # (A) 6.8 k/uL (1.3-7.7); Neutrophils % (A) 70 %; Platelet Count 743 k/uL (150-450); RBC 3.46 m/uL (3.80-5.40); RDW 15.6 % (11.5-15.5); WBC 9.6 k/uL (3.8-10.6)
[2024-01-07 04:36] LABS: African American GFR (CKD) >90 (>60 ml/min/1.73 sqM); Anion Gap 4 mmol/L; Blood Urea Nitrogen 5 mg/dL (7-17); Calcium 8.6 mg/dL (8.4-10.2); Carbon Dioxide 22 mmol/L (22-30); Chloride 110 mmol/L (98-107); Glucose 110 mg/dL (74-99); Non-African American GFR(CKD) >90 (>60 ml/min/1.73 sqM); Potassium 4.4 mmol/L (3.5-5.1); Sodium 136 mmol/L (137-145)
--- NOTE | 2024-01-07 07:31 | P.CONS ---
History of Present Illness - Reason for Consult Consult date: 01/06/24 - History of Present Illness Patient is a 53-year-old female with a past medical history significant for fibromyalgia sleep apnea has been dealing with C. difficile colitis for the last 2 months with initial admission to evaluate this to hospital with the patient was diagnosed with C. 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 ER yesterday for evaluation of burning of urine along with frequency symptoms started Friday and progressively getting worse for the patient presented to hospital family complaining of some lower abdominal discomfort did have some nausea but no vomiting and currently has some diarrhea who overall frequency has slightly decreased but not completely resolved denies any blood in the stool recently patient was evaluated on arrival to the ER the patient was afebrile with fever tachycardia subsequently patient was not tachycardic hypotensive or hypoxic patient is a white count of 10.5 creatinine 0.68 liver enzymes are normal urine was positive patient was started on gentamicin continue on oral vancomycin infectious disease was consulted for further management Past Medical History Past Medical History: Fibromyalgia, Sleep Apnea/CPAP/BIPAP Additional Past Medical History / Comment(s): vertigo, ms, migraines. cdiff History of Any Multi-Drug Resistant Organisms: None Reported Past Surgical History: Hysterectomy, Joint Replacement, Orthopedic Surgery Additional Past Surgical History / Comment(s): lower back and neck, lft knee scope , right knee scope 2022 Past Anesthesia/Blood Transfusion Reactions: No Reported Reaction Additional Past Anesthesia/Blood Transfusion Reaction / Comm: no blood transfusion Past Psychological History: No Psychological Hx Reported, Anxiety, Depression, PTSD Smoking Status: Vaper Past Alcohol Use History: None Reported Past Drug Use History: None Reported - Past Family History Father Additional Family Medical History / Comment(s): Clotting problem per patient. Medications and Allergies Home Medications Medication Instructions Recorded Confirmed Type Topiramate [Topamax] 50 mg PO BID 06/24/22 01/05/24 History DULoxetine HCL [Cymbalta] 60 mg PO DAILY 12/04/23 01/05/24 History Ocrelizumab [Ocrevus] 600 mg IV DIRECTED 12/04/23 01/05/24 History Vancomycin HCl [Vancocin HCl] See Taper PO DIRECTED 01/05/24 01/05/24 History Allergies Allergy/AdvReac Type Severity Reaction Status Date / Time nickel Allergy Rash/Hives Verified 01/05/24 20:05 Physical Exam Vitals: Vital Signs Temp Pulse Resp BP Pulse Ox 01/06/24 02:00 83 18 118/77 95 01/05/24 21:10 98.4 F 85 17 121/76 95 01/05/24 18:57 98.1 F 86 18 107/68 95 01/05/24 14:44 98.8 F 105 H 20 142/84 98 Results CBC & Chem 7: 01/08/24 12:09 01/08/24 12:09 Labs: Abnormal Lab Results - Last 24 Hours (Table) 01/05/24 01/05/24 01/05/24 Range/Units 15:41 16:10 16:10 RBC 3.78 L (3.80-5.40) m/uL Hgb 11.0 L D (11.4-16.0) gm/dL MCHC 30.5 L (31.0-37.0) g/dL RDW 15.6 H (11.5-15.5) % Plt Count 769 H (150-450) k/uL PT (10.0-12.5) sec Chloride 111 H (98-107) mmol/L Carbon Dioxide 20 L (22-30) mmol/L Total Bilirubin 0.1 L (0.2-1.3) mg/dL Total Protein 6.2 L (6.3-8.2) g/dL Albumin 2.7 L (3.5-5.0) g/dL Urine Protein Trace H (Negative) Urine Nitrite Positive H (Negative) Ur Leukocyte Esterase Small H (Negative) Urine WBC 11 H (0-5) /hpf Urine Bacteria Moderate H (None) /hpf Urine Mucus Moderate H (None) /hpf 01/05/24 Range/Units 16:10 RBC (3.80-5.40) m/uL Hgb (11.4-16.0) gm/dL MCHC (31.0-37.0) g/dL RDW (11.5-15.5) % Plt Count (150-450) k/uL PT 9.7 L (10.0-12.5) sec Chloride (98-107) mmol/L Carbon Dioxide (22-30) mmol/L Total Bilirubin (0.2-1.3) mg/dL Total Protein (6.3-8.2) g/dL Albumin (3.5-5.0) g/dL Urine Protein (Negative) Urine Nitrite (Negative) Ur Leukocyte Esterase (Negative) Urine WBC (0-5) /hpf Urine Bacteria (None) /hpf Urine Mucus (None) /hpf Assessment and Plan Plan: 1patient presented to hospital predominantly with urinary symptoms of burning and frequency did have a positive UA concerning for symptomatic urinary tract infection likely from multiple gram-negative pathogen. 2patient also dealing with C. difficile colitis for the last 2 months and is currently on a tapering course of oral vancomycin still having symptoms of diarrhea. 3discontinue gentamicin and vancomycin to decrease risk of nephrotoxicity. 4we will start patient on Rocephin for UTI while waiting for the culture finalize. 5we will start patient on Dificid for C. difficile colitis and the patient has been encouraged to increase her probiotic and yogurt intake We will follow on clinical condition and cultures to further adjust medication if needed Thank you for this consultation we will follow the patient along with you Dictation was produced using [employer] dictation software. please excuse any grammatical, word or spelling errors. Time with Patient: Greater than 30
--- NOTE | 2024-01-07 13:34 | P.PN ---
Subjective Progress Note Date: 01/07/24 Principal diagnosis: C. difficile colitis This is a pleasant 53-year-old female with history of recurrent urinary tract infections, fibromyalgia, sleep apnea and C. difficile colitis. Patient had presented to the emergency department for concerns of urinary tract infection. States that starting on Friday she started getting some lower pelvic pressure wrapping around to her flank as well as burning with urination. Symptoms persisted and she called her primary care physician who told her to come to the emergency department for further evaluation and possible antibiotics. Patient apparently had knee surgery back in September of this year followed by her urinary tract infection and had been on antibiotics. Following that she was diagnosed with C. difficile colitis about 2 months ago and has seen Dr. Lechuga in the outpatient setting. She is currently on vancomycin 250 mg twice a day. She states that diarrhea may come multiple times during the day usually after eating and can be associated with bloody stools. She currently denies any blood in her urine, states that she is getting lower abdominal and pelvic discomfort as well as flank pain. States that she has burning with urination. Denies any fevers or chills. States appetite has been good. 01/07/2024 Patient seen and examined today as a follow-up. Patient states she is just really tired she did not get a lot of sleep. She was seen by infectious disease and they have changed vancomycin to Dificid. She denies any bowel movements this morning. Denies any abdominal pain, nausea or vomiting. She is also being treated with ceftriaxone for urinary tract infection. Repeat stool for C. difficile negative. Urine culture preliminary positive for gram-negative bacilli. Objective - Vital Signs Vital signs: Vital Signs Temp 98.4 F 01/07/24 07:17 Pulse 84 01/07/24 07:17 Resp 18 01/07/24 07:17 BP 121/61 01/07/24 07:17 Pulse Ox 95 01/07/24 07:17 FiO2 Intake & Output 01/06/24 01/07/24 01/07/24 18:59 06:59 18:59 Intake Total 1050 Balance 1050 Weight 110.223 kg Intake: IV 1000 Sodium Chloride 0.9% 1, 1000 000 ml @ 100 mls/hr IV . Q10H [facility] Rx#:[id number] Intake, IV Titration 50 Amount cefTRIAXone 1 gm In 50 Sodium Chloride 0.9% 50 ml @ 100 mls/hr IVPB Q24H [facility] Rx#:[id number] Other: # Voids 3 1 # Bowel Movements 1 2 - Exam General appearance: The patient is alert, oriented, appears in no acute distress. HET: Head is normocephalic and atraumatic. Conjunctiva pink. Sclera anicteric. Neck: Supple without lymphadenopathy. Abdomen: Soft, nontender, nondistended with bowel sounds. No guarding or rigidity. Extremities: Normal skin color and turgor. No pedal edema Skin: No rashes, no jaundice Neurological: No focal deficits. Alert and oriented. - Labs CBC & Chem 7: 01/07/24 03:13 01/07/24 03:13 Labs: Abnormal Lab Results - Last 24 Hours (Table) 01/07/24 01/07/24 Range/Units 03:13 03:13 RBC 3.46 L (3.80-5.40) m/uL Hgb 9.8 L (11.4-16.0) gm/dL Hct 33.0 L (34.0-46.0) % MCHC 29.8 L (31.0-37.0) g/dL RDW 15.6 H (11.5-15.5) % Plt Count 743 H (150-450) k/uL Sodium 136 L (137-145) mmol/L Chloride 110 H (98-107) mmol/L BUN 5 L (7-17) mg/dL Glucose 110 H (74-99) mg/dL Microbiology - Last 24 Hours (Table) 01/05/24 18:55 Blood Culture - Preliminary Blood 01/05/24 18:35 Blood Culture - Preliminary Blood Assessment and Plan (1) Clostridium difficile colitis Narrative/Plan: 53-year-old female following with gastroenterology for C. difficile colitis following antibiotic treatment for urinary tract infection and knee surgery in September of this year. Patient had remained positive for C. difficile after initial treatment. Last time tested she states she believes about 2 weeks ago. She remains on oral vancomycin 250 mg she is on a taper dose and is currently taking twice a day for 2-week duration then will continue with once daily for 2 weeks. Will repeat stool for C. difficile. Continue with current regimen. Infectious disease also on consultation, appreciate their recommendations. She also did have a recent CT abdomen and pelvis on 12/04/2023 which reviewed ported contentious wall thickening from colon to cecum which can be seen with infectious colitis. Infectious disease is consulted for UTI and C. difficile. He is recommending changing vancomycin to Dificid. Agree with medication change. Patient to follow-up with gastroenterology after discharge. Current Visit: Yes Status: Acute Code(s): A04.72 - ENTEROCOLITIS D/T CLOSTRIDIUM DIFFICILE, NOT SPCF RECUR SNOMED Code(s): 797854342 (2) Urinary tract infection Current Visit: Yes Status: Acute Code(s): N39.0 - URINARY TRACT INFECTION, SITE NOT SPECIFIED SNOMED Code(s): 97552799 Plan: 1. Continue symptomatic and supportive care 2. Diet as tolerated 3. Continue Dificid as ordered by infectious disease 4. Continue with recommendations from infectious disease for urinary tract infection 5. No plans on endoscopic evaluation. Recommend colonoscopy in a few weeks in the outpatient setting. Thank you for this consultation, patient is cleared from gastroenterology. We will sign off at this time. Dr. Wero Lechuga I agree with the dictator's note, documented as a scribe by Aleyda Juárez.
--- NOTE | 2024-01-07 16:31 | US ---
EXAMINATION TYPE: US thyroid st tissue head/neck DATE OF EXAM: 01/07/2024 COMPARISON: NONE CLINICAL INDICATION: Female, 53 years old with history of large nodule/goiter for eval; lump in neck. TECHNIQUE: Grayscale imaging of the tendon near neck in the midline. FINDINGS: Hypoechoic area mid line neck under chin measuring 1.9 x 1.2 x 1.7 cm. IMPRESSION: Indeterminate soft tissue mass under the chin which may represent enlarged lymph node versus thyroglo ssal duct cyst versus others. Further evaluation with CT imaging recommended of the neck with IV cont rast.
[2024-01-07] MEDS: diphenhydrAMINE 25 MG CAP PO PRN (17:37)
[2024-01-07] MEDS: PANTOPRAZOLE 40 MG/10 ML VIAL IVP SCH (19:55)
--- NOTE | 2024-01-08 02:44 | PN ---
PROGRESS NOTE DATE OF SERVICE: 01/07/2024 SUBJECTIVE: This is a 53-year-old woman who was admitted with C difficile colitis, failure of outpatient treatment, is complaining of diffuse abdominal pain. CT scan showed diffuse colitis. The patient is still having diarrhea. Multiple consultants are following the patient closely. The patient also had a cystic swelling in the submental neck area also. Gastroenterology has no plans for endoscopic evaluation at this time. Infectious Disease is following the patient closely. Recommended colonoscopy in few weeks after outpatient setting. PAST MEDICAL HISTORY: Reviewed. REVIEW OF SYSTEMS: A 14-point review is negative except as mentioned. CURRENT MEDICATIONS: Reviewed include Dificid, dose and rest of medications noted. OBJECTIVE: VITAL SIGNS: Pulse 84, blood pressure 120/62, respirations 18. CHEST: Clear to auscultation. CARDIOVASCULAR: S1, S2. ABDOMEN: Soft, mild diffuse discomfort. No guarding, no masses palpable. LABS: WBC 9.8, platelets are 743. Sodium is 136. C difficile negative currently. ASSESSMENT: 1. C difficile colitis with failure of outpatient treatment. 2. Diffuse colitis, pancolitis on the recent CAT scan. 3. Recurrent UTI. 4. History of recent knee surgery. 5. History of multiple sclerosis, on immunosuppression. 6. History of sleep apnea. 7. Fibromyalgia. 8. Anxiety, depression, posttraumatic stress disorder. 9. Multiple medical issues. 10.Possible thyroglossal cyst in the submental region. RECOMMENDATIONS: Recommended to continue current management, continue symptomatic treatment. Otherwise, CAT scan of the abdomen was reviewed which showed only mild improvement and the possibility such as ulcerative colitis and Crohn disease should be considered per radiology report. We will continue to monitor. Continue with diffuse symptomatic treatment. I would also please also add #5 thank we will continue. We will also order an ultrasound of the neck. The patient is on empiric antibiotics, guarded prognosis because of multiple complex medical issues. Further recommendations to follow, see orders for details. The chest x-ray was reviewed. Cut down the IV fluids. MMODL / IJN: [id number] /
[2024-01-08] MEDS: BUTALB/APAP/CAFF 50-325-40MG TAB PO PRN (12:13)
[2024-01-08 12:45] LABS: Basophils % (A) 1 %; Eosinophils # (A) 0.3 k/uL (0-0.7); Eosinophils % (A) 4 %; HCT 31.9 % (34.0-46.0); HGB 9.7 gm/dL (11.4-16.0); Hypochromasia Moderate; Lymphocytes # (A) 1.8 k/uL (1.0-4.8); Lymphocytes % (A) 22 %; MCH 29.1 pg (25.0-35.0); MCHC 30.3 g/dL (31.0-37.0); Mean Platelet Volume 7.5; Monocytes # (A) 0.8 k/uL (0-1.0); Monocytes % (A) 10 %; Neutrophils # (A) 5.1 k/uL (1.3-7.7); Neutrophils % (A) 62 %; Platelet Count 723 k/uL (150-450); RBC 3.32 m/uL (3.80-5.40); RDW 15.5 % (11.5-15.5); WBC 8.2 k/uL (3.8-10.6)
[2024-01-08 12:57] LABS: ALT 11 U/L (4-34); AST 15 U/L (14-36); African American GFR (CKD) >90 (>60 ml/min/1.73 sqM); Albumin 2.3 g/dL (3.5-5.0); Alkaline Phosphatase 110 U/L (38-126); Anion Gap 3 mmol/L; Blood Urea Nitrogen 6 mg/dL (7-17); Calcium 8.5 mg/dL (8.4-10.2); Carbon Dioxide 25 mmol/L (22-30); Chloride 109 mmol/L (98-107); Glucose 96 mg/dL (74-99); Non-African American GFR(CKD) >90 (>60 ml/min/1.73 sqM); Potassium 4.1 mmol/L (3.5-5.1); Sodium 137 mmol/L (137-145); Total Bilirubin 0.1 mg/dL (0.2-1.3); Total Protein 5.6 g/dL (6.3-8.2)
--- NOTE | 2024-01-08 13:33 | P.PN ---
Subjective Progress Note Date: 01/07/24 Principal diagnosis: Reason for follow-up C. difficile colitis and UTI Patient is a 53-year-old female with a past medical history significant for fibromyalgia sleep apnea has been dealing with C. difficile colitis for the last 2 months, currently on tapering course of oral vancomycin presented to hospital predominantly with urinary symptoms suspicious for UTI and persistent diarrhea. On today's evaluation that is 01/07/2024,the patient remains to be afebrile, patient is on room air not requiring supplemental oxygen and denies any shortness of breath no chest pain or cough.Patient denies having any nausea or vomiting, still complains of abdominal pain and diarrhea urinary symptom mildly improved. Patient white count is 9.6, creatinine 0.58 stool for significant back negative Objective - Vital Signs Vital signs: Vital Signs Temp 98.4 F 01/07/24 07:17 Pulse 84 01/07/24 07:17 Resp 18 01/07/24 07:17 BP 121/61 01/07/24 07:17 Pulse Ox 95 01/07/24 07:17 FiO2 Intake & Output 01/06/24 01/07/24 01/07/24 18:59 06:59 18:59 Intake Total 1050 Balance 1050 Weight 110.223 kg Intake: IV 1000 Sodium Chloride 0.9% 1, 1000 000 ml @ 100 mls/hr IV . Q10H [facility] Rx#:[id number] Intake, IV Titration 50 Amount cefTRIAXone 1 gm In 50 Sodium Chloride 0.9% 50 ml @ 100 mls/hr IVPB Q24H [facility] Rx#:[id number] Other: # Voids 3 1 # Bowel Movements 1 2 - Exam GENERAL DESCRIPTION: An elderly male lying in bed in no distress RESPIRATORY SYSTEM: Unlabored breathing , decreased breath sounds at bases HEART: S1 S2 regular rate and rhythm , ABDOMEN: Soft , mild distention and tenderness EXTREMITIES: No edema feet - Labs CBC & Chem 7: 01/08/24 12:09 01/08/24 12:09 Labs: Abnormal Lab Results - Last 24 Hours (Table) 01/07/24 01/07/24 Range/Units 03:13 03:13 RBC 3.46 L (3.80-5.40) m/uL Hgb 9.8 L (11.4-16.0) gm/dL Hct 33.0 L (34.0-46.0) % MCHC 29.8 L (31.0-37.0) g/dL RDW 15.6 H (11.5-15.5) % Plt Count 743 H (150-450) k/uL Sodium 136 L (137-145) mmol/L Chloride 110 H (98-107) mmol/L BUN 5 L (7-17) mg/dL Glucose 110 H (74-99) mg/dL Microbiology - Last 24 Hours (Table) 01/05/24 15:41 Urine Culture - Preliminary Urine,Voided Gram Neg Bacilli 01/05/24 18:55 Blood Culture - Preliminary Blood 01/05/24 18:35 Blood Culture - Preliminary Blood Assessment and Plan (1) Clostridium difficile colitis Current Visit: Yes Status: Acute Code(s): A04.72 - ENTEROCOLITIS D/T CLOSTRIDIUM DIFFICILE, NOT SPCF RECUR SNOMED Code(s): 857928825 (2) Urinary tract infection Current Visit: Yes Status: Acute Code(s): N39.0 - URINARY TRACT INFECTION, SITE NOT SPECIFIED SNOMED Code(s): 29104795 Plan: 1patient presented to hospital predominantly with urinary symptoms of burning and frequency did have a positive UA concerning for symptomatic urinary tract infection likely from multiple gram-negative pathogen. 2patient also dealing with C. difficile colitis for the last 2 months and is currently on a tapering course of oral vancomycin still having symptoms of diarrhea. 3stool for C. difficile came back negative we will check a stool for C. difficile PCR also check a stool culture 4continue with the IV Rocephin and oral Dificid Dictation was produced using [employer] dictation software. please excuse any grammatical, word or spelling errors. Time with Patient: Less than 30
--- NOTE | 2024-01-08 13:34 | P.PN ---
Subjective Progress Note Date: 01/08/24 Principal diagnosis: Reason for follow-up C. difficile colitis and UTI Patient is a 53-year-old female with a past medical history significant for fibromyalgia sleep apnea has been dealing with C. difficile colitis for the last 2 months, currently on tapering course of oral vancomycin presented to hospital predominantly with urinary symptoms suspicious for UTI and persistent diarrhea. On today's evaluation that is 01/08/2024, the patient continues to be afebrile, the patient is on room air and breathing comfortably, the Pt denies having any chest pain or cough, the patient denies having any worsening abdominal pain no vomiting still having diarrhea has mentioned some blood in the stool but denies any worsening diarrhea. Patient white count is 8.2 creatinine 0.64 stool for C. difficile PCR canceled by micro lab urine is growing gram-negative bacilli Objective - Vital Signs Vital signs: Vital Signs Temp 98.0 F 01/08/24 02:00 Pulse 82 01/08/24 02:00 Resp 16 01/08/24 02:00 BP 104/69 01/08/24 02:00 Pulse Ox 95 01/08/24 02:00 FiO2 Intake & Output 01/07/24 01/08/24 01/08/24 18:59 06:59 18:59 Intake Total 118 20 Balance 118 20 Intake: IV 20 Invasive Line 1 20 Oral 118 Other: # Voids 1 5 # Bowel Movements 7 2 - Exam GENERAL DESCRIPTION: An elderly male lying in bed in no distress RESPIRATORY SYSTEM: Unlabored breathing , decreased breath sounds at bases HEART: S1 S2 regular rate and rhythm , ABDOMEN: Soft , mild distention and tenderness EXTREMITIES: No edema feet - Labs CBC & Chem 7: 01/08/24 12:09 01/08/24 12:09 Labs: Microbiology - Last 24 Hours (Table) 01/05/24 18:55 Blood Culture - Preliminary Blood 01/05/24 18:35 Blood Culture - Preliminary Blood 01/05/24 15:41 Urine Culture - Preliminary Urine,Voided Gram Neg Bacilli Assessment and Plan (1) Clostridium difficile colitis Current Visit: Yes Status: Acute Code(s): A04.72 - ENTEROCOLITIS D/T CLOSTRIDIUM DIFFICILE, NOT SPCF RECUR SNOMED Code(s): 836251286 (2) Urinary tract infection Current Visit: Yes Status: Acute Code(s): N39.0 - URINARY TRACT INFECTION, SITE NOT SPECIFIED SNOMED Code(s): 29084346 Plan: 1patient presented to hospital predominantly with urinary symptoms of burning and frequency did have a positive UA concerning for symptomatic urinary tract infection likely from multiple gram-negative pathogen. 2patient also dealing with C. difficile colitis for the last 2 months and is currently on a tapering course of oral vancomycin still having symptoms of diarrhea. 3stool for C. difficile came back negative, stool culture pending stool C. difficile canceled by the micro lab will reorder it again and discussed with the infection control 4patient urine is growing gram-negative bacilli with ID sensitivities pending, patient is covered with the Dificid Rocephin while waiting for the workup to be completed, will add Questran for symptomatic relief Dictation was produced using [employer] dictation software. please excuse any grammatical, word or spelling errors. Time with Patient: Less than 30
--- NOTE | 2024-01-08 14:35 | CT ---
EXAMINATION TYPE: CT soft tissue neck w con DATE OF EXAM: 01/08/2024 COMPARISON: HISTORY: kimberly in neck CT DLP: 379.3 mGycm CONTRAST: CT scan of the neck is performed with IV Contrast, patient injected with 100 mL of Isovue 300. Contrast enhanced CT of the neck was performed from the skull base through the lung apices. Midline cystic mass within the strap I didn't muscles which measures 2.1 x 1.7 cm both reflect a thyr oglossal duct cyst. AIRWAY: The supraglottic, glottic, and subglottic portions of the airway appear patent and free of mass. SALIVARY GLANDS: The submandibular and parotid glands are free of mass or inflammatory process. THYROID GLAND: No nodules or masses seen. LYMPH NODES: No adenopathy seen greater than 1cm. LUNG APICES: No nodule or mass is seen. OTHER: Vascular structures are patent. No significant degenerative change of the cervical spine. N o abscess seen. Mild chronic pansinusitis. IMPRESSION: 1. Midline thyroglossal duct cyst. 2. Chronic sinusitis.
[2024-01-08] MEDS: CHOLESTYRAMINE (WITH SUGAR) 4 GM PACKET PO SCH (17:52)
--- NOTE | 2024-01-09 00:43 | P.PN ---
Subjective Progress Note Date: 01/08/24 Patient is evaluated in follow up today on the medical floor. Continues on IV ceftriaxone with urine culture revealing gram negative bacilli. Additionally, ID recommending dificid. Patient continues to report multiple episodes of loose stools however reports they are decreased in amount and fecal incontinence has improved. C.dif has been tested and negative twice. Thyroid ultrasound reveals indeterminate soft tissue mass under the chin which may represent enlarged lymph node versus thyroglossal duct cyst versus others. Further evaluation with CT imaging recommended of the neck with IV contrast. Patient does report migraine maintained on emgality and ubrelvy outaptient. Review of Systems Constitutional: Denied any fatigue denied any fever. Reports migraine Cardio vascular: denied any chest pain, palpitations Gastrointestinal: denied any nausea, vomiting. Reports diarrhea. Pulmonary: Denied any shortness of breath cough Neurologic denied any new focal deficits All inpatient medications were reviewed and appropriate changes in these medications as dictated in the interval history and assessment and plan. PHYSICAL EXAMINATION: GENERAL: The patient is alert and oriented x3, not in any acute distress. Well developed, well nourished. HEENT: Pupils are round and equally reacting to light. EOMI. No scleral icterus. No conjunctival pallor. Normocephalic, atraumatic. No pharyngeal erythema. No thyromegaly. CARDIOVASCULAR: S1 and S2 present. No murmurs, rubs, or gallops. PULMONARY: Chest is clear to auscultation, no wheezing or crackles. ABDOMEN: Soft, nontender, nondistended, normoactive bowel sounds. No palpable organomegaly. MUSCULOSKELETAL: No joint swelling or deformity. EXTREMITIES: No cyanosis, clubbing, or pedal edema. NEUROLOGICAL: Gross neurological examination did not reveal any focal deficits. SKIN: No rashes. Assessment and Plan C.Dif colitis failed outpatient treatment, ID following and remains on dificid. Pancolitis GI following Recurrent urinary tract infection maintained on IV ceftriaxone with final urine cultures pending Chronic migraine maintained on emgality and ubrelvy outaptient which we do not carry, has been started on fioricet Allergic sinusitis claritin has been ordered Recent right knee and right hip arthroplasty History of multiple sclerosis on immunosuppression History of sleep apnea Fibromyalgia Anxiety/depression/PTSD Soft tissue neck mass enlarged lymph node vs. other GI prophylaxis DVT prophylaxis Full Code The impression and plan of care has been dictated by Drea Durán, Nurse Practitioner as directed. Dr. Jarod MD I have performed a history and physical examination and medical decision making of this patient, discussed the same with the dictator, and agree with the dictators assessment and plan as written, documented as a scribe. Based on total visit time, I have performed more than 50% of this visit. Objective - Vital Signs Vital signs: Vital Signs Temp 98.4 F 01/08/24 19:12 Pulse 97 01/08/24 19:12 Resp 16 01/08/24 19:12 BP 114/76 01/08/24 19:12 Pulse Ox 95 01/08/24 19:12 FiO2 Intake & Output 01/08/24 01/08/24 01/09/24 06:59 18:59 06:59 Intake Total 20 Balance 20 Weight 113.6 kg Intake: IV 20 Invasive Line 1 20 Other: # Voids 5 # Bowel Movements 2 1 - Labs CBC & Chem 7: 01/08/24 12:09 01/08/24 12:09 Labs: Abnormal Lab Results - Last 24 Hours (Table) 01/08/24 01/08/24 Range/Units 12:09 12:09 RBC 3.32 L (3.80-5.40) m/uL Hgb 9.7 L (11.4-16.0) gm/dL Hct 31.9 L (34.0-46.0) % MCHC 30.3 L (31.0-37.0) g/dL Plt Count 723 H (150-450) k/uL Chloride 109 H (98-107) mmol/L BUN 6 L (7-17) mg/dL Total Bilirubin 0.1 L (0.2-1.3) mg/dL Total Protein 5.6 L (6.3-8.2) g/dL Albumin 2.3 L (3.5-5.0) g/dL Microbiology - Last 24 Hours (Table) 01/05/24 15:41 Urine Culture - Final Urine,Voided Proteus mirabilis 01/05/24 18:55 Blood Culture - Preliminary Blood 01/05/24 18:35 Blood Culture - Preliminary Blood Assessment and Plan Time with Patient: Less than 30
[2024-01-09] MEDS: FLUTICASONE 50MCG/SPRAY NASAL 16GM EA NOSTRIL SCH (09:00)
[2024-01-09] MEDS: LORATADINE 10 MG TAB PO SCH (09:00)
--- NOTE | 2024-01-09 16:26 | P.PN ---
Subjective Progress Note Date: 01/09/24 Principal diagnosis: Reason for follow-up C. difficile colitis and UTI Patient is a 53-year-old female with a past medical history significant for fibromyalgia sleep apnea has been dealing with C. difficile colitis for the last 2 months, currently on tapering course of oral vancomycin presented to hospital predominantly with urinary symptoms suspicious for UTI and persistent diarrhea. On today's evaluation that is 01/09/2024, Patient is afebrile patient is currently on room air and denies having any shortness of breath, the patient denies any chest pain or cough, the patient denies any nausea vomiting no significant abdominal pains recommended no significant diarrhea but bowel movement every hour on the hour Symptoms improved. No CBC was done today stool for C. difficile came back negative urine with a Proteus sensitive to ceftriaxone Objective - Vital Signs Vital signs: Vital Signs Temp 98.3 F 01/09/24 07:55 Pulse 78 01/09/24 08:00 Resp 18 01/09/24 07:55 BP 111/73 01/09/24 07:55 Pulse Ox 96 01/09/24 07:55 FiO2 Intake & Output 01/08/24 01/09/24 01/09/24 18:59 06:59 18:59 Weight 113.6 kg Other: Voiding Method Toilet # Voids 3 # Bowel Movements 1 2 - Exam GENERAL DESCRIPTION: An elderly male lying in bed in no distress RESPIRATORY SYSTEM: Unlabored breathing , decreased breath sounds at bases HEART: S1 S2 regular rate and rhythm , ABDOMEN: Soft , mild distention and tenderness EXTREMITIES: No edema feet - Labs CBC & Chem 7: 01/08/24 12:09 01/08/24 12:09 Labs: Abnormal Lab Results - Last 24 Hours (Table) 01/08/24 Range/Units 12:09 Chloride 109 H (98-107) mmol/L BUN 6 L (7-17) mg/dL Total Bilirubin 0.1 L (0.2-1.3) mg/dL Total Protein 5.6 L (6.3-8.2) g/dL Albumin 2.3 L (3.5-5.0) g/dL Microbiology - Last 24 Hours (Table) 01/05/24 18:55 Blood Culture - Preliminary Blood 01/05/24 18:35 Blood Culture - Preliminary Blood 01/05/24 15:41 Urine Culture - Final Urine,Voided Proteus mirabilis Assessment and Plan (1) Clostridium difficile colitis Current Visit: Yes Status: Acute Code(s): A04.72 - ENTEROCOLITIS D/T C LOSTRIDIUM DIFFICILE, NOT SPCF RECUR SNOMED Code(s): 610267151 (2) Urinary tract infection Current Visit: Yes Status: Acute Code(s): N39.0 - URINARY TRACT INFECTION, SITE NOT SPECIFIED SNOMED Code(s): 11281371 Plan: 1patient presented to hospital predominantly with urinary symptoms of burning and frequency did have a positive UA concerning for symptomatic urinary tract infection likely from multiple gram-negative pathogen. 2patient also dealing with C. difficile colitis for the last 2 months and is currently on a tapering course of oral vancomycin still having symptoms of diarrhea. 3patient with a UTI urine culture positive for Proteus covered with Rocephin 4-patient with persistent diarrhea in this patient who did have 2 negative C. difficile EIA and 1 negative C. difficile PCR patient manage patient from endoscopic evaluation and biopsy this has been discussed with the GI as well as admitting team [employer] Dictation was produced using [employer] dictation software. please excuse any grammatical, word or spelling errors. Time with Patient: Less than 30
--- NOTE | 2024-01-09 18:52 | P.PN ---
Subjective Progress Note Date: 01/09/24 Patient is evaluated in follow up today on the medical floor. Continues on IV ceftriaxone with urine culture revealing gram negative bacilli. Additionally, ID recommending dificid. Patient continues to report multiple episodes of loose stools however reports they are decreased in amount and fecal incontinence has improved. C.dif has been tested and negative twice. Thyroid ultrasound reveals indeterminate soft tissue mass under the chin which may represent enlarged lymph node versus thyroglossal duct cyst versus others. Further evaluation with CT imaging recommended of the neck with IV contrast. Patient does report migraine maintained on emgality and ubrelvy outaptient. 01/09/2024 Patient is evaluated today in follow up. Reports improved headache. Continues to report multiple bowel movements overnight states she has gone 8 times. C.Dif PCR is negative. Is continued on dificid. GI has evaluated the patient and recommending colonoscopy in 2 weeks outpatient. 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 Patient continues on IV fluids and IV ceftriaxone. Patient reports abdominal discomfort and has been requesting IV dilaudid every 3 hours. Review of Systems Constitutional: Denied any fatigue denied any fever. Reports migraine Cardio vascular: denied any chest pain, palpitations Gastrointestinal: denied any nausea, vomiting. Reports diarrhea. Pulmonary: Denied any shortness of breath cough Neurologic denied any new focal deficits All inpatient medications were reviewed and appropriate changes in these medications as dictated in the interval history and assessment and plan. PHYSICAL EXAMINATION: GENERAL: The patient is alert and oriented x3, not in any acute distress. Well developed, well nourished. HEENT: Pupils are round and equally reacting to light. EOMI. No scleral icterus. No conjunctival pallor. Normocephalic, atraumatic. No pharyngeal erythema. No thyromegaly. CARDIOVASCULAR: S1 and S2 present. No murmurs, rubs, or gallops. PULMONARY: Chest is clear to auscultation, no wheezing or crackles. ABDOMEN: Soft, nontender, nondistended, normoactive bowel sounds. No palpable organomegaly. MUSCULOSKELETAL: No joint swelling or deformity. EXTREMITIES: No cyanosis, clubbing, or pedal edema. NEUROLOGICAL: Gross neurological examination did not reveal any focal deficits. SKIN: No rashes. Assessment and Plan Colitis with negative C.Dif. Continues on dificid. Started on questran needs to follow up with GI outpatient. Pancolitis with continued diarrhea recommending for strict intake and output. Record stool output. Recurrent urinary tract infection maintained on IV ceftriaxone with urine cultures showing proteus. Chronic migraine maintained on emgality and ubrelvy outaptient which we do not carry, has been started on fioricet Allergic sinusitis claritin has been ordered Recent right knee and right hip arthroplasty History of multiple sclerosis on immunosuppression History of sleep apnea Fibromyalgia Anxiety/depression/PTSD Soft tissue neck mass enlarged lymph node vs. other GI prophylaxis DVT prophylaxis Full Code The impression and plan of care has been dictated by Drea Durán, Nurse Practitioner as directed. Dr. Jarod MD I have performed a history and physical examination and medical decision making of this patient, discussed the same with the dictator, and agree with the dic tators assessment and plan as written, documented as a scribe. Based on total visit time, I have performed more than 50% of this visit. Objective - Vital Signs Vital signs: Vital Signs Temp 97.8 F 01/09/24 12:01 Pulse 82 01/09/24 12:01 Resp 18 01/09/24 12:01 BP 98/62 01/09/24 12:01 Pulse Ox 96 01/09/24 12:01 FiO2 Intake & Output 01/08/24 01/09/24 01/09/24 18:59 06:59 18:59 Output Total 50 Balance -50 Weight 113.6 kg Output: Stool 50 Other: Voiding Method Toilet # Voids 3 4 # Bowel Movements 1 2 1 - Labs CBC & Chem 7: 01/08/24 12:09 01/08/24 12:09 Labs: Microbiology - Last 24 Hours (Table) 01/05/24 18:55 Blood Culture - Preliminary Blood 01/05/24 18:35 Blood Culture - Preliminary Blood Assessment and Plan Time with Patient: Less than 30
[2024-01-09] MEDS: HYDROmorphone 0.5 MG/0.5 ML SYRINGE IVP PRN (23:53)
[2024-01-10] MEDS: KETOROLAC 15 MG/ML 1 ML VIAL IVP PRN (15:29)
--- NOTE | 2024-01-10 15:29 | P.PN ---
Subjective Progress Note Date: 01/10/24 Patient is evaluated in follow up today on the medical floor. Continues on IV ceftriaxone with urine culture revealing gram negative bacilli. Additionally, ID recommending dificid. Patient continues to report multiple episodes of loose stools however reports they are decreased in amount and fecal incontinence has improved. C.dif has been tested and negative twice. Thyroid ultrasound reveals indeterminate soft tissue mass under the chin which may represent enlarged lymph node versus thyroglossal duct cyst versus others. Further evaluation with CT imaging recommended of the neck with IV contrast. Patient does report migraine maintained on emgality and ubrelvy outaptient. 01/09/2024 Patient is evaluated today in follow up. Reports improved headache. Continues to report multiple bowel movements overnight states she has gone 8 times. C.Dif PCR is negative. Is continued on dificid. GI has evaluated the patient and recommending colonoscopy in 2 weeks outpatient. 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 Patient continues on IV fluids and IV ceftriaxone. Patient reports abdominal discomfort and has been requesting IV dilaudid every 3 hours. 01/10/2024 Patient is evaluated in follow-up today continues to report significant abdominal pain to the left lower quadrant although on palpation patient does not appear to be wincing or in extreme pain. Her bowel sounds are normal active. Patient does endorse multiple bowel movements overnight and states that she is having significant abdominal cramping after every bowel movement. She states t hat the foul odor to her bowel movements has improved and her C. difficile PCR is currently negative. Urine culture showing proteus mirabilis. Continues on IV ceftriaxone. Review of Systems Constitutional: Denied any fatigue denied any fever. Reports migraine Cardio vascular: denied any chest pain, palpitations Gastrointestinal: denied any nausea, vomiting. Reports diarrhea. Pulmonary: Denied any shortness of breath cough Neurologic denied any new focal deficits All inpatient medications were reviewed and appropriate changes in these medications as dictated in the interval history and assessment and plan. PHYSICAL EXAMINATION: GENERAL: The patient is alert and oriented x3, not in any acute distress. Well developed, well nourished. HEENT: Pupils are round and equally reacting to light. EOMI. No scleral icterus. No conjunctival pallor. Normocephalic, atraumatic. No pharyngeal erythema. No thyromegaly. CARDIOVASCULAR: S1 and S2 present. No murmurs, rubs, or gallops. PULMONARY: Chest is clear to auscultation, no wheezing or crackles. ABDOMEN: Soft, nontender, nondistended, normoactive bowel sounds. No palpable organomegaly. MUSCULOSKELETAL: No joint swelling or deformity. EXTREMITIES: No cyanosis, clubbing, or pedal edema. NEUROLOGICAL: Gross neurological examination did not reveal any focal deficits. SKIN: No rashes. Assessment and Plan Colitis with negative C.Dif. Continues on dificid. Started on questran needs to follow up with GI outpatient. Pancolitis with continued diarrhea recommending for strict intake and output. Record stool output. Recurrent urinary tract infection maintained on IV ceftriaxone with urine cultures showing proteus. Chronic migraine maintained on emgality and ubrelvy outaptient which we do not carry, has been started on fioricet Allergic sinusitis claritin has been ordered Recent right knee and right hip arthroplasty History of multiple sclerosis on immunosuppression History of sleep apnea Fibromyalgia Anxiety/depression/PTSD Soft tissue neck mass enlarged lymph node vs. other GI prophylaxis DVT prophylaxis Full Code Patient continues to report significant abdominal pain. Recommending to repeat an abdominal pelvis CT. Added toradol for pain management and continue IV dilaudid Q6h. The impression and plan of care has been dictated by Drea Durán, Nurse Practitioner as directed. Dr. Jarod MD I have performed a history and physical examination and medical decision making of this patient, discussed the same with the dictator, and agree with the dictators assessment and plan as written, documented as a scribe. Based on total visit time, I have performed more than 50% of this visit. Objective - Vital Signs Vital signs: Vital Signs Temp 98.5 F 01/10/24 08:00 Pulse 82 01/10/24 08:50 Resp 16 01/10/24 08:50 BP 105/67 01/10/24 08:00 Pulse Ox 98 01/10/24 08:00 FiO2 Intake & Output 01/09/24 01/10/24 01/10/24 18:59 06:59 18:59 Intake Total 2450 Output Total 50 680 450 Balance -50 1770 -450 Intake: IV 900 Sodium Chloride 0.9% 1, 900 000 ml @ 75 mls/hr IV . [id number] [facility] Rx#:[id number] Intake, IV Titration 50 Amount cefTRIAXone 1 gm In 50 Sodium Chloride 0.9% 50 ml @ 100 mls/hr IVPB Q24H [facility] Rx#:[id number] Oral 1500 Output: Urine 150 Stool 50 680 300 Other: Voiding Method Toilet Toilet Toilet # Voids 4 1 # Bowel Movements 1 - Labs CBC & Chem 7: 01/08/24 12:09 01/08/24 12:09 Assessment and Plan Time with Patient: Less than 30
[2024-01-10] MEDS: IOPAMIDOL CONTRAST (ORAL USE) VIAL PO PRN (16:04)
[2024-01-10] MEDS: HYDROmorphone 1 MG/ML 1 ML SYRINGE IM PRN (18:07)
--- NOTE | 2024-01-10 18:35 | CT ---
EXAMINATION TYPE: CT abdomen pelvis w con CT DLP: 2457.1 mGycm, Automated exposure control for dose reduction was used. DATE OF EXAM: 01/10/2024 6:04 PM COMPARISON: CT abdomen pelvis most recent from most recent 01/06/2024 CLINICAL INDICATION:Female, 53 years old with history of LLQ abdominal pain, colitis; LLQ pain. hx of colitis. TECHNIQUE: Axial CT abdomen pelvis w con;Sagittal and coronal reformats were created on a separate w orkstation. Contrast used:100ml mL of Isovue 300 with IV Contrast, (none if empty) Oral contrast used: with Oral Contrast (none if empty) FINDINGS: LOWER CHEST: Unremarkable ABDOMEN LIVER: Diffusely hypoattenuating parenchyma. GALLBLADDER AND BILE DUCTS: Unremarkable. PANCREAS: Unremarkable. SPLEEN: Unremarkable. ADRENAL GLANDS: 21 mm left adrenal indeterminate nodule. Nodular thickening of the right adrenal glan d measuring up to 12 mm. KIDNEYS AND URETERS: No evidence of hydronephrosis or renal calculus. The ureters are unremarkable. PELVIS BLADDER: Unremarkable REPRODUCTIVE: Unremarkable. ABDOMEN & PELVIS STOMACH AND BOWEL: No evidence of bowel obstruction. Circumferential wall thickening of the of the co agatha involving the transverse colon extending to the sigmoid colon. No evidence for perforation. Findi ngs are seen dating back to 12/04/2023 may be slightly worse on the left aspect of the colon and the p roved on the right aspect of the colon. PERITONEUM/RETROPERITONEUM: No evidence of pneumoperitoneum or free fluid. VASCULATURE: No evidence of aortic aneurysm. MUSCULOSKELETAL: No acute osseous abnormalities, fixation changes at L4-L5 and S1. Hardware appears i ntact. LYMPH NODES: No gross evidence for lymphadenopathy. SOFT TISSUE/ABDOMINAL WALL: Unremarkable IMPRESSION: 1. Colitis thought to be involving nearly entire colon and worse in the transverse colon descending colon and sigmoid colon. Findings are seen dating back to 12/04/2023 may be slightly worse on the left aspect of the colon and the proved on the right aspect of the colon. Given findings have been seen s jovanny 12/04/2023 ulcerative colitis and other inflammatory bowel diseases such as Crohn's disease shoul d be considered. 2. Indeterminate bilateral adrenal nodules consider adrenal CT for further evaluation for washout. 3. Hepatic steatosis.
[2024-01-11 09:53] LABS: BUN/Creat Ratio 8.43 Ratio (12.00-20.00); Blood Urea Nitrogen 5.9 mg/dL (9.0-27.0); Chloride 111 mmol/L (96-109); Glucose 114 mg/dL (70-110); Potassium 4.1 mmol/L (3.5-5.5); Sodium 139 mmol/L (135-145)
[2024-01-11 09:54] LABS: Calcium 8.1 mg/dL (8.7-10.3); Carbon Dioxide 19.1 mmol/L (21.6-31.8)
[2024-01-11] MEDS: methylPREDNISolone SOD SUCCI 40 MG/ML 1 ML VIAL IV SCH (11:16)
--- NOTE | 2024-01-11 14:00 | P.PN ---
Subjective Progress Note Date: 01/11/24 Patient is evaluated in follow up today on the medical floor. Continues on IV ceftriaxone with urine culture revealing gram negative bacilli. Additionally, ID recommending dificid. Patient continues to report multiple episodes of loose stools however reports they are decreased in amount and fecal incontinence has improved. C.dif has been tested and negative twice. Thyroid ultrasound reveals indeterminate soft tissue mass under the chin which may represent enlarged lymph node versus thyroglossal duct cyst versus others. Further evaluation with CT imaging recommended of the neck with IV contrast. Patient does report migraine maintained on emgality and ubrelvy outaptient. 01/09/2024 Patient is evaluated today in follow up. Reports improved headache. Continues to report multiple bowel movements overnight states she has gone 8 times. C.Dif PCR is negative. Is continued on dificid. GI has evaluated the patient and recommending colonoscopy in 2 weeks outpatient. 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 Patient continues on IV fluids and IV ceftriaxone. Patient reports abdominal discomfort and has been requesting IV dilaudid every 3 hours. 01/10/2024 Patient is evaluated in follow-up today continues to report significant abdominal pain to the left lower quadrant although on palpation patient does not appear to be wincing or in extreme pain. Her bowel sounds are normal active. Patient does endorse multiple bowel movements overnight and states that she is having significant abdominal cramping after every bowel movement. She states t hat the foul odor to her bowel movements has improved and her C. difficile PCR is currently negative. Urine culture showing proteus mirabilis. Continues on IV ceftriaxone. 01/11/2024 Patient is evaluated today in follow-up on the medical floor she does continue to report significant abdominal pain greater in the left lower quadrant and is having multiple bowel movements throughout the evening and the day about 50 to 100 mL of stool at 1 time. Her stool does appear to be less liquid. Patient h ad a repeat abdominal pelvis CT done showing colitis thought to be involving nearly the entire colon and worse in the transverse colon descending colon and sigmoid colon findings are seen dating back to December 04, 2023 may be slightly worse in the left aspect of the colon and improved in the right aspect of the colon given findings have been seen since December 04, 2023 ulcerative colitis and other inflammatory bowel diseases such as Crohn's should be considered. Indeterminate bilateral adrenal nodules considering adrenal CT for further evaluation for washout. Hepatic steatosis. Stool Culture showing Pseudomonas. Review of Systems Constitutional: Denied any fatigue denied any fever. Reports migraine Cardio vascular: denied any chest pain, palpitations Gastrointestinal: denied any nausea, vomiting. Reports diarrhea. Pulmonary: Denied any shortness of breath cough Neurologic denied any new focal deficits All inpatient medications were reviewed and appropriate changes in these medicat ions as dictated in the interval history and assessment and plan. PHYSICAL EXAMINATION: GENERAL: The patient is alert and oriented x3, not in any acute distress. Well developed, well nourished. HEENT: Pupils are round and equally reacting to light. EOMI. No scleral icterus. No conjunctival pallor. Normocephalic, atraumatic. No pharyngeal erythema. No thyromegaly. CARDIOVASCULAR: S1 and S2 present. No murmurs, rubs, or gallops. PULMONARY: Chest is clear to auscultation, no wheezing or crackles. ABDOMEN: Soft, nontender, nondistended, normoactive bowel sounds. No palpable organomegaly. MUSCULOSKELETAL: No joint swelling or deformity. EXTREMITIES: No cyanosis, clubbing, or pedal edema. NEUROLOGICAL: Gross neurological examination did not reveal any focal deficits. SKIN: No rashes. Assessment and Plan Colitis with negative C.Dif. Stool culture shows pseudomonas. Started on questr an needs to follow up with GI outpatient. Pancolitis with continued diarrhea recommending for strict intake and output. Record stool output. Recurrent urinary tract infection maintained on IV ceftriaxone with urine cultures showing proteus. Chronic migraine maintained on emgality and ubrelvy outaptient which we do not carry, has been started on fioricet Allergic sinusitis claritin has been ordered Recent right knee and right hip arthroplasty History of multiple sclerosis on immunosuppression History of sleep apnea Fibromyalgia Anxiety/depression/PTSD Soft tissue neck mass enlarged lymph node vs. other GI prophylaxis DVT prophylaxis Full Code Patient had repeat abdominal pelvis CT continuing to show pancolitis. Dificid discontinued and patient changed to metronidazole and continues on IV ceftriaxone. Stool culture showing psuedomonas and awaiting further recommendations by ID. Patient does report improved abdominal pain with the IV toradol and continues on that with IV dilaudid. Started on IV steroids for the enterocolitis. Repeat blood work in the AM. Patient continues to report significant abdominal pain. Recommending to repeat an abdominal pelvis CT. Added toradol for pain management and continue IV dilaudid Q6h. The impression and plan of care has been dictated by Drea Durán, Nurse Practitioner as directed. Dr. Jarod MD I have performed a history and physical examination and medical decision making of this patient, discussed the same with the dictator, and agree with the dictators assessment and plan as written, documented as a scribe. Based on total visit time, I have performed more than 50% of this visit. Objective - Vital Signs Vital signs: Vital Signs Temp 98.4 F 01/11/24 13:26 Pulse 79 01/11/24 13:26 Resp 19 01/11/24 13:26 BP 100/65 01/11/24 13:26 Pulse Ox 96 01/11/24 13:26 FiO2 Intake & Output 01/10/24 01/11/24 01/11/24 18:59 06:59 18:59 Intake Total 480 750 240 Output Total 575 300 Balance -95 750 -60 Intake: IV 750 Sodium Chloride 0.9% 1, 750 000 ml @ 75 mls/hr IV . [id number] [facility] Rx#:[id number] Oral 480 240 Output: Urine 150 Stool 425 300 Other: Voiding Method Toilet Toilet # Voids 1 1 1 # Bowel Movements 1 1 1 - Labs CBC & Chem 7: 01/08/24 12:09 01/11/24 03:40 Labs: Abnormal Lab Results - Last 24 Hours (Table) 01/11/24 Range/Units 03:40 Chloride 111 H (96-109) mmol/L Carbon Dioxide 19.1 L (21.6-31.8) mmol/L BUN 5.9 L (9.0-27.0) mg/dL BUN/Creatinine Ratio 8.43 L (12.00-20.00) Ratio Glucose 114 H (70-110) mg/dL Calcium 8.1 L (8.7-10.3) mg/dL Microbiology - Last 24 Hours (Table) 01/07/24 12:07 Stool Culture - Final Stool Pseudomonas aeruginosa 01/05/24 18:55 Blood Culture - Final Blood 01/05/24 18:35 Blood Culture - Final Blood Assessment and Plan Time with Patient: Less than 30
[2024-01-11] MEDS: metroNIDAZOLE 500 MG TAB PO SCH (16:44)
--- NOTE | 2024-01-11 16:55 | P.PN ---
Subjective Progress Note Date: 01/10/24 Principal diagnosis: Reason for follow-up C. difficile colitis and UTI Patient is a 53-year-old female with a past medical history significant for fibromyalgia sleep apnea has been dealing with C. difficile colitis for the last 2 months, currently on tapering course of oral vancomycin presented to hospital predominantly with urinary symptoms suspicious for UTI and persistent diarrhea. On today's evaluation that is 01/10/2024, patient has been afebrile, patient is breathing comfortably and is currently on room air, patient denies having any significant cough no chest pain shortness of breath, patient denies nausea vomiting still complaining of multiple bowel movements denies any blood or mucus in the stool urinary symptoms has improved. No lab draw today Objective - Vital Signs Vital signs: Vital Signs Temp 98.2 F 01/10/24 14:00 Pulse 86 01/10/24 14:00 Resp 18 01/10/24 14:00 BP 103/71 01/10/24 14:00 Pulse Ox 96 01/10/24 14:00 FiO2 Intake & Output 01/09/24 01/10/24 01/10/24 18:59 06:59 18:59 Intake Total 2450 480 Output Total 50 680 575 Balance -50 1770 -95 Intake: IV 900 Sodium Chloride 0.9% 1, 900 000 ml @ 75 mls/hr IV . [id number] [facility] Rx#:[id number] Intake, IV Titration 50 Amount cefTRIAXone 1 gm In 50 Sodium Chloride 0.9% 50 ml @ 100 mls/hr IVPB Q24H [facility] Rx#:[id number] Oral 1500 480 Output: Urine 150 Stool 50 680 425 Other: Voiding Method Toilet Toilet Toilet # Voids 4 1 1 # Bowel Movements 1 1 - Exam GENERAL DESCRIPTION: An elderly male lying in bed in no distress RESPIRATORY SYSTEM: Unlabored breathing , decreased breath sounds at bases HEART: S1 S2 regular rate and rhythm , ABDOMEN: Soft , mild distention and tenderness EXTREMITIES: No edema feet - Labs CBC & Chem 7: 01/08/24 12:09 01/11/24 03:40 Labs: Microbiology - Last 24 Hours (Table) 01/07/24 12:07 Stool Culture - Preliminary Stool Assessment and Plan (1) Clostridium difficile colitis Current Visit: Yes Status: Acute Code(s): A04.72 - ENTEROCOLITIS D/T CLOSTRIDIUM DIFFICILE, NOT SPCF RECUR SNOMED Code(s): 565456480 (2) Urinary tract infection Current Visit: Yes Status: Acute Code(s): N39.0 - URINARY TRACT INFECTION, SITE NOT SPECIFIED SNOMED Code(s): 32105460 Plan: 1patient presented to hospital predominantly with urinary symptoms of burning and frequency did have a positive UA concerning for symptomatic urinary tract infection likely from multiple gram-negative pathogen. 2patient also dealing with C. difficile colitis for the last 2 months and is currently on a tapering course of oral vancomycin still having symptoms of diarr hea. 3patient with a UTI urine culture positive for Proteus covered with Rocephin 4-patient with persistent diarrhea in this patient who did have 2 negative C. difficile EIA and 1 negative C. difficile PCR patient will benefit from endoscopic evaluation and biopsy, repeat CT has been ordered by admitting team and results will be followed Dictation was produced using [employer] dictation software. please excuse any grammatical, word or spelling errors. Time with Patient: Less than 30
--- NOTE | 2024-01-11 16:56 | P.PN ---
Subjective Progress Note Date: 01/11/24 Principal diagnosis: Reason for follow-up C. difficile colitis and UTI Patient is a 53-year-old female with a past medical history significant for fibromyalgia sleep apnea has been dealing with C. difficile colitis for the last 2 months, currently on tapering course of oral vancomycin presented to hospital predominantly with urinary symptoms suspicious for UTI and persistent diarrhea. On today's evaluation that is 01/11/2024,the patient denies any fever or any chills, patient is breathing comfortably on room air, the patient denies chest pain shortness of breath and no significant cough, patient complaining of multiple bowel movements mention she did went 13 times last night denies any blood or mucus in the stool did have some improvement in urinary symptoms. Patient did have repeat CT completed yesterday with the pancolitis and concerning for possible inflammatory bowel disease stool culture with Pseudomonas Objective - Vital Signs Vital signs: Vital Signs Temp 98.4 F 01/11/24 13:26 Pulse 79 01/11/24 13:26 Resp 19 01/11/24 13:26 BP 100/65 01/11/24 13:26 Pulse Ox 96 01/11/24 13:26 FiO2 Intake & Output 01/10/24 01/11/24 01/11/24 18:59 06:59 18:59 Intake Total 480 750 240 Output Total 575 300 Balance -95 750 -60 Intake: IV 750 Sodium Chloride 0.9% 1, 750 000 ml @ 75 mls/hr IV . [id number] [facility] Rx#:[id number] Oral 480 240 Output: Urine 150 Stool 425 300 Other: Voiding Method Toilet Toilet # Voids 1 1 1 # Bowel Movements 1 1 1 - Exam GENERAL DESCRIPTION: An elderly male lying in bed in no distress RESPIRATORY SYSTEM: Unlabored breathing , decreased breath sounds at bases HEART: S1 S2 regular rate and rhythm , ABDOMEN: Soft , mild distention and tenderness EXTREMITIES: No edema feet - Labs CBC & Chem 7: 01/08/24 12:09 01/11/24 03:40 Labs: Abnormal Lab Results - Last 24 Hours (Table) 01/11/24 Range/Units 03:40 Chloride 111 H (96-109) mmol/L Carbon Dioxide 19.1 L (21.6-31.8) mmol/L BUN 5.9 L (9.0-27.0) mg/dL BUN/Creatinine Ratio 8.43 L (12.00-20.00) Ratio Glucose 114 H (70-110) mg/dL Calcium 8.1 L (8.7-10.3) mg/dL Microbiology - Last 24 Hours (Table) 01/07/24 12:07 Stool Culture - Final Stool Pseudomonas aeruginosa 01/05/24 18:55 Blood Culture - Final Blood 01/05/24 18:35 Blood Culture - Final Blood Assessment and Plan (1) Clostridium difficile colitis Current Visit: Yes Status: Acute Code(s): A04.72 - ENTEROCOLITIS D/T CLOSTRIDIUM DIFFICILE, NOT SPCF RECUR SNOMED Code(s): 506278193 (2) Urinary tract infection Current Visit: Yes Status: Acute Code(s): N39.0 - URINARY TRACT INFECTION, SITE NOT SPECIFIED SNOMED Code(s): 36626138 Plan: 1patient presented to hospital predominantly with urinary symptoms of burning and frequency did have a positive UA concerning for symptomatic urinary tract infection likely from multiple gram-negative pathogen. 2patient also dealing with C. difficile colitis for the last 2 months and is currently on a tapering course of oral vancomycin still having symptoms of diarrhea. 3patient with a UTI urine culture positive for Proteus covered with Rocephin 4-patient with persistent diarrhea in this patient who did have 2 negative C. difficile EIA and 1 negative C. difficile PCR repeat CT is suspicious for possible inflammatory bowel disease which may be the case as I would have seen significant elevation of the white count if all this pancolitis was associated with C. difficile colitis patient benefit from colonoscopy and biopsy with a stool culture showing Pseudomonas and question of inflammatory bowel disease with exacerbation we will try cefepime and Flagyl and see response, however if no improvement and no GI service available recommend transfer the patient out to tertiary care discussed with the admitting team [employer]PERATIONS [employer]IST Dictation was produced using [employer] dictation software. please excuse any grammatical, word or spelling errors. Time with Patient: Less than 30
[2024-01-11] MEDS: CEFEPIME 2 GM in SODIUM CHLORIDE 0.9% 100 ML IVPB SCH (17:34)
[2024-01-12 16:13] VITALS: BMI 40.4
--- NOTE | 2024-01-12 19:20 | P.PN ---
Subjective Progress Note Date: 01/12/24 Patient is evaluated in follow up today on the medical floor. Continues on IV ceftriaxone with urine culture revealing gram negative bacilli. Additionally, ID recommending dificid. Patient continues to report multiple episodes of loose stools however reports they are decreased in amount and fecal incontinence has improved. C.dif has been tested and negative twice. Thyroid ultrasound reveals indeterminate soft tissue mass under the chin which may represent enlarged lymph node versus thyroglossal duct cyst versus others. Further evaluation with CT imaging recommended of the neck with IV contrast. Patient does report migraine maintained on emgality and ubrelvy outaptient. 01/09/2024 Patient is evaluated today in follow up. Reports improved headache. Continues to report multiple bowel movements overnight states she has gone 8 times. C.Dif PCR is negative. Is continued on dificid. GI has evaluated the patient and recommending colonoscopy in 2 weeks outpatient. 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 Patient continues on IV fluids and IV ceftriaxone. Patient reports abdominal discomfort and has been requesting IV dilaudid every 3 hours. 01/10/2024 Patient is evaluated in follow-up today continues to report significant abdominal pain to the left lower quadrant although on palpation patient does not appear to be wincing or in extreme pain. Her bowel sounds are normal active. Patient does endorse multiple bowel movements overnight and states that she is having significant abdominal cramping after every bowel movement. She states t hat the foul odor to her bowel movements has improved and her C. difficile PCR is currently negative. Urine culture showing proteus mirabilis. Continues on IV ceftriaxone. 01/11/2024 Patient is evaluated today in follow-up on the medical floor she does continue to report significant abdominal pain greater in the left lower quadrant and is having multiple bowel movements throughout the evening and the day about 50 to 100 mL of stool at 1 time. Her stool does appear to be less liquid. Patient h ad a repeat abdominal pelvis CT done showing colitis thought to be involving nearly the entire colon and worse in the transverse colon descending colon and sigmoid colon findings are seen dating back to December 04, 2023 may be slightly worse in the left aspect of the colon and improved in the right aspect of the colon given findings have been seen since December 04, 2023 ulcerative colitis and other inflammatory bowel diseases such as Crohn's should be considered. Indeterminate bilateral adrenal nodules considering adrenal CT for further evaluation for washout. Hepatic steatosis. Stool Culture showing Pseudomonas. 01/12/2024 Patient evaluated in follow up. Continues to report significant left lower extremity pain worse after bowl movement. Continues on IV toradol, IV steroids. Continues to have multiple BMS throughout the day and night. Going about 50 mls each time. Stool culture showing pseudomonas and now pending sensitivities for discharge. On IV cefepime and oral flagyl. Dificid discontinued. ID following closely. Review of Systems Constitutional: Denied any fatigue denied any fever. Reports migraine Cardio vascular: denied any chest pain, palpitations Gastrointestinal: denied any nausea, vomiting. Reports diarrhea. Pulmonary: Denied any shortness of breath cough Neurologic denied any new focal deficits All inpatient medications were reviewed and appropriate changes in these medications as dictated in the interval history and assessment and plan. PHYSICAL EXAMINATION: GENERAL: The patient is alert and oriented x3, not in any acute distress. Well developed, well nourished. HEENT: Pupils are round and equally reacting to light. EOMI. No scleral icterus. No conjunctival pallor. Normocephalic, atraumatic. No pharyngeal erythema. No thyromegaly. CARDIOVASCULAR: S1 and S2 present. No murmurs, rubs, or gallops. PULMONARY: Chest is clear to auscultation, no wheezing or crackles. ABDOMEN: Soft, nontender, nondistended, normoactive bowel sounds. No palpable or ganomegaly. MUSCULOSKELETAL: No joint swelling or deformity. EXTREMITIES: No cyanosis, clubbing, or pedal edema. NEUROLOGICAL: Gross neurological examination did not reveal any focal deficits. SKIN: No rashes. Assessment and Plan Colitis with negative C.Dif. Stool culture shows pseudomonas. Started on questran needs to follow up with GI outpatient. Pancolitis with continued diarrhea recommending for strict intake and output. Record stool output. Recurrent urinary tract infection with urine cultures showing proteus. Chronic migraine maintained on emgality and ubrelvy outaptient which we do not carry, has been started on fioricet Allergic sinusitis claritin has been ordered Metabolic acidosis from hyperchloremia fluids have been changed to LR. Recent right knee and right hip arthroplasty History of multiple sclerosis on immunosuppression History of sleep apnea Fibromyalgia Anxiety/depression/PTSD Soft tissue neck mass enlarged lymph node vs. other GI prophylaxis DVT prophylaxis Full Code Patient had repeat abdominal pelvis CT continuing to show pancolitis. Dificid discontinued and patient changed to metronidazole and now IV cefepime. Stool culture showing psuedomonas and awaiting final microsensitivites before discharge. This was requested and patient will be remain hospitalized pending the microsensitivities and ID antibiotics recommendations. Patient does report i mproved abdominal pain with the IV toradol and continues on that. Started on IV steroids for the enterocolitis. Repeat blood work in the AM. Patient continues to report significant abdominal pain. Recommending to repeat an abdominal pelvis CT. Added toradol for pain management and continue IV dila udid Q6h. The impression and plan of care has been dictated by Drea Durán Nurse Practitioner as directed. Dr. Jarod MD I have performed a history and physical examination and medical decision making of this patient, discussed the same with the dictator, and agree with the dictators assessment and plan as written, documented as a scribe. Based on total visit time, I have performed more than 50% of this visit. Objective - Vital Signs Vital signs: Vital Signs Temp 98.3 F 01/12/24 12:51 Pulse 74 01/12/24 12:51 Resp 17 01/12/24 12:51 BP 106/67 01/12/24 12:51 Pulse Ox 95 01/12/24 12:51 FiO2 Intake & Output 01/12/24 01/12/24 01/13/24 06:59 18:59 06:59 Intake Total 1000 1600 Output Total 50 Balance 1000 1550 Weight 113.6 kg Intake: Intake, IV Titration 1000 1000 Amount Cefepime 2 gm In Sodium 100 100 Chloride 0.9% 100 ml @ 25 mls/hr IVPB Q8HR [facility] Rx# :[id number] Sodium Chloride 0.9% 1, 900 900 000 ml @ 75 mls/hr IV . [id number] [facility] Rx#:[id number] Oral 600 Output: Stool 50 Other: Voiding Method Toilet Toilet # Voids 3 2 # Bowel Movements 4 2 - Labs CBC & Chem 7: 01/08/24 12:09 01/11/24 03:40 Assessment and Plan Time with Patient: Less than 30
[2024-01-12] MEDS: LACTATED RINGERS 1,000 ML IV SCH (21:14)
[2024-01-12] MEDS: MICONAZOLE 2% VAGINAL CREAM 45 GM TUBE/KIT VAGINAL SCH (21:14)
[2024-01-13] MEDS: ZINC OXIDE PASTE (Z-GUARD) 1 APPLIC TOPICAL PRN (02:31)
--- NOTE | 2024-01-13 15:02 | P.PN ---
Subjective Progress Note Date: 01/13/24 Patient is evaluated in follow up today on the medical floor. Continues on IV ceftriaxone with urine culture revealing gram negative bacilli. Additionally, ID recommending dificid. Patient continues to report multiple episodes of loose stools however reports they are decreased in amount and fecal incontinence has improved. C.dif has been tested and negative twice. Thyroid ultrasound reveals indeterminate soft tissue mass under the chin which may represent enlarged lymph node versus thyroglossal duct cyst versus others. Further evaluation with CT imaging recommended of the neck with IV contrast. Patient does report migraine maintained on emgality and ubrelvy outaptient. 01/09/2024 Patient is evaluated today in follow up. Reports improved headache. Continues to report multiple bowel movements overnight states she has gone 8 times. C.Dif PCR is negative. Is continued on dificid. GI has evaluated the patient and recommending colonoscopy in 2 weeks outpatient. 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 Patient continues on IV fluids and IV ceftriaxone. Patient reports abdominal discomfort and has been requesting IV dilaudid every 3 hours. 01/10/2024 Patient is evaluated in follow-up today continues to report significant abdominal pain to the left lower quadrant although on palpation patient does not appear to be wincing or in extreme pain. Her bowel sounds are normal active. Patient does endorse multiple bowel movements overnight and states that she is having significant abdominal cramping after every bowel movement. She states t hat the foul odor to her bowel movements has improved and her C. difficile PCR is currently negative. Urine culture showing proteus mirabilis. Continues on IV ceftriaxone. 01/11/2024 Patient is evaluated today in follow-up on the medical floor she does continue to report significant abdominal pain greater in the left lower quadrant and is having multiple bowel movements throughout the evening and the day about 50 to 100 mL of stool at 1 time. Her stool does appear to be less liquid. Patient h ad a repeat abdominal pelvis CT done showing colitis thought to be involving nearly the entire colon and worse in the transverse colon descending colon and sigmoid colon findings are seen dating back to December 04, 2023 may be slightly worse in the left aspect of the colon and improved in the right aspect of the colon given findings have been seen since December 04, 2023 ulcerative colitis and other inflammatory bowel diseases such as Crohn's should be considered. Indeterminate bilateral adrenal nodules considering adrenal CT for further evaluation for washout. Hepatic steatosis. Stool Culture showing Pseudomonas. 01/12/2024 Patient evaluated in follow up. Continues to report significant left lower extremity pain worse after bowl movement. Continues on IV toradol, IV steroids. Continues to have multiple BMS throughout the day and night. Going about 50 mls each time. Stool culture showing pseudomonas and now pending sensitivities for discharge. On IV cefepime and oral flagyl. Dificid discontinued. ID following closely. 01/13/2024 Patient is evaluated in follow up. Continues to report frequent bowel movements which are exacerbating the patients abdominal pain mostly in the left lower quadrant she reports abdominal cramping and discomfort. Patient has been refusing the questran and states this makes her abdominal pain worse. We are recommended to continue on IV toradol at this time. Patient continues on IV cefepime and oral flagyl due to stool culture positive for pseudomonas and pending microsensitivities for discharge antibiotics. ID following cultures. Steroids will be discontinued as patient states they are making her feel hungry and she is concerned about weight gain. Renal function and electrolytes remain stable and hemodynamically she is stable. Review of Systems Constitutional: Denied any fatigue denied any fever. Reports migraine Cardio vascular: denied any chest pain, palpitations Gastrointestinal: denied any nausea, vomiting. Reports diarrhea. Reports a bdominal pain. Pulmonary: Denied any shortness of breath cough Neurologic denied any new focal deficits All inpatient medications were reviewed and appropriate changes in these medications as dictated in the interval history and assessment and plan. PHYSICAL EXAMINATION: GENERAL: The patient is alert and oriented x3, not in any acute distress. Well developed, well nourished. HEENT: Pupils are round and equally reacting to light. EOMI. No scleral icterus. No conjunctival pallor. Normocephalic, atraumatic. No pharyngeal erythema. No thyromegaly. CARDIOVASCULAR: S1 and S2 present. No murmurs, rubs, or gallops. PULMONARY: Chest is clear to auscultation, no wheezing or crackles. ABDOMEN: Soft, LLQ mild tender, nondistended, normoactive bowel sounds. No palpable organomegaly. MUSCULOSKELETAL: No joint swelling or deformity. EXTREMITIES: No cyanosis, clubbing, or pedal edema. NEUROLOGICAL: Gross neurological examination did not reveal any focal deficits. SKIN: No rashes. Assessment and Plan Colitis with negative C.Dif. Stool culture shows pseudomonas. Started on questran needs to follow up with GI outpatient. Pancolitis with continued diarrhea recommending for strict intake and output. Record stool output. Recurrent urinary tract infection with urine cultures showing proteus. Chronic migraine maintained on emgality and ubrelvy outaptient which we do not carry, has been started on fioricet Allergic sinusitis claritin has been ordered Metabolic acidosis from hyperchloremia fluids have been changed to LR. Recent right knee and right hip arthroplasty History of multiple sclerosis on immunosuppression History of sleep apnea Fibromyalgia Anxiety/depression/PTSD Soft tissue neck mass enlarged lymph node vs. other GI prophylaxis DVT prophylaxis Full Code Patient had repeat abdominal pelvis CT continuing to show pancolitis. Dificid discontinued and patient changed to metronidazole and now IV cefepime. Stool culture showing psuedomonas and awaiting final microsensitivites before discharge. This was requested and patient will be remain hospitalized pending the microsensitivities and ID antibiotics recommendations. Patient does report improved abdominal pain with the IV toradol and continues on that. Started on IV steroids for the enterocolitis however patient refusing and will discontinue the steroids. Repeat blood work in the AM. Patient continues to report significant abdominal pain. Recommending to repeat an abdominal pelvis CT. Added toradol for pain management and continue IV dilaudid Q6h. The impression and plan of care has been dictated by Drea Durán, Nurse Practitioner as directed. Dr. Jarod MD I have performed a history and physical examination and medical decision making of this patient, discussed the same with the dictator, and agree with the dictators assessment and plan as written, documented as a scribe. Based on total visit time, I have performed more than 50% of this visit. Objective - Vital Signs Vital signs: Vital Signs Temp 98.3 F 01/13/24 07:10 Pulse 66 01/13/24 07:10 Resp 18 01/13/24 07:10 BP 122/71 01/13/24 07:10 Pulse Ox 97 01/13/24 07:10 FiO2 Intake & Output 01/12/24 01/13/24 01/13/24 18:59 06:59 18:59 Intake Total 1600 1300 Output Total 50 Balance 1550 1300 Weight 113.6 kg Intake: Intake, IV Titration 1000 700 Amount Cefepime 2 gm In Sodium 100 100 Chloride 0.9% 100 ml @ 25 mls/hr IVPB Q8HR [facility] Rx# :[id number] Lactated Ringers 1,000 ml 600 @ 50 mls/hr IV .Q20H [facility] Rx#:[id number] Sodium Chloride 0.9% 1, 900 000 ml @ 75 mls/hr IV . [id number] [facility] Rx#:[id number] Oral 600 600 Output: Stool 50 Other: Voiding Method Toilet Toilet # Voids 2 4 # Bowel Movements 2 6 - Labs CBC & Chem 7: 01/08/24 12:09 01/11/24 03:40 Assessment and Plan Time with Patient: Less than 30
--- NOTE | 2024-01-13 15:10 | P.PN ---
Subjective Progress Note Date: 01/12/24 Principal diagnosis: Reason for follow-up C. difficile colitis and UTI Patient is a 53-year-old female with a past medical history significant for fibromyalgia sleep apnea has been dealing with C. difficile colitis for the last 2 months, currently on tapering course of oral vancomycin presented to hospital predominantly with urinary symptoms suspicious for UTI and persistent diarrhea. On today's evaluation that is 01/12/2024,the patient remains to be afebrile, patient is on room air not requiring supplemental oxygen and denies any shortness of breath no chest pain or cough.Patient denies having any nausea or vomiting, still complains of abdominal discomfort however mention diarrhea has slowed down not as watery No new labs obtained today Objective - Vital Signs Vital signs: Vital Signs Temp 98.0 F 01/12/24 07:30 Pulse 66 01/12/24 07:30 Resp 16 01/12/24 07:30 BP 106/67 01/12/24 07:30 Pulse Ox 97 01/12/24 07:30 FiO2 Intake & Output 01/11/24 01/12/24 01/12/24 18:59 06:59 18:59 Intake Total 1020 1000 Output Total 350 50 Balance 670 1000 -50 Intake: Intake, IV Titration 1000 Amount Cefepime 2 gm In Sodium 100 Chloride 0.9% 100 ml @ 25 mls/hr IVPB Q8HR [facility] Rx# :[id number] Sodium Chloride 0.9% 1, 900 000 ml @ 75 mls/hr IV . [id number] [facility] Rx#:[id number] Oral 1020 Output: Stool 350 50 Other: Voiding Method Toilet Toilet Toilet # Voids 2 3 # Bowel Movements 1 4 - Exam GENERAL DESCRIPTION: An elderly male lying in bed in no distress RESPIRATORY SYSTEM: Unlabored breathing , decreased breath sounds at bases HEART: S1 S2 regular rate and rhythm , ABDOMEN: Soft , mild distention and tenderness EXTREMITIES: No edema feet - Labs CBC & Chem 7: 01/08/24 12:09 01/11/24 03:40 Labs: Microbiology - Last 24 Hours (Table) 01/07/24 12:07 Stool Culture - Final Stool Pseudomonas aeruginosa Assessment and Plan (1) Clostridium difficile colitis Current Visit: Yes Status: Acute Code(s): A04.72 - ENTEROCOLITIS D/T CLOSTR IDIUM DIFFICILE, NOT SPCF RECUR SNOMED Code(s): 127973215 (2) Urinary tract infection Current Visit: Yes Status: Acute Code(s): N39.0 - URINARY TRACT INFECTION, SITE NOT SPECIFIED SNOMED Code(s): 44045149 Plan: 1patient presented to hospital predominantly with urinary symptoms of burning and frequency did have a positive UA concerning for symptomatic urinary tract infection likely from multiple gram-negative pathogen. 2patient also dealing with C. difficile colitis for the last 2 months and is currently on a tapering course of oral vancomycin still having symptoms of diarrhea. 3patient with a UTI urine culture positive for Proteus covered with Rocephin 4-patient with persistent diarrhea in this patient who did have 2 negative C. difficile EIA and 1 negative C. difficile PCR repeat CT is suspicious for possible inflammatory bowel disease which may be the case as I would have seen significant elevation of the white count if all this pancolitis was associated with C. 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 please excuse any grammatical, word or spelling errors. Time with Patient: Less than 30
--- NOTE | 2024-01-13 15:11 | P.PN ---
Subjective Progress Note Date: 01/13/24 Principal diagnosis: Reason for follow-up C. difficile colitis and UTI Patient is a 53-year-old female with a past medical history significant for fibromyalgia sleep apnea has been dealing with C. difficile colitis for the last 2 months, currently on tapering course of oral vancomycin presented to hospital predominantly with urinary symptoms suspicious for UTI and persistent diarrhea. On today's evaluation that is 01/13/2024, the patient continues to be afebrile, the patient is on room air and breathing comfortably, the Pt denies having any chest pain or cough, the patient denies having any nausea or vomiting denies any worsening abdominal pain diarrhea has slowed down and that is what he complaining of more pain around the perirectal area. No new labs has been obtained today stool culture with Pseudomonas aeruginosa Objective - Vital Signs Vital signs: Vital Signs Temp 97.7 F 01/13/24 12:16 Pulse 83 01/13/24 12:16 Resp 18 01/13/24 12:16 BP 135/84 01/13/24 12:16 Pulse Ox 96 01/13/24 12:16 FiO2 Intake & Output 01/12/24 01/13/24 01/13/24 18:59 06:59 18:59 Intake Total 1600 1300 Output Total 50 Balance 1550 1300 Weight 113.6 kg Intake: Intake, IV Titration 1000 700 Amount Cefepime 2 gm In Sodium 100 100 Chloride 0.9% 100 ml @ 25 mls/hr IVPB Q8HR [facility] Rx# :[id number] Lactated Ringers 1,000 ml 600 @ 50 mls/hr IV .Q20H [facility] Rx#:[id number] Sodium Chloride 0.9% 1, 900 000 ml @ 75 mls/hr IV . [id number] [facility] Rx#:[id number] Oral 600 600 Output: Stool 50 Other: Voiding Method Toilet Toilet Toilet # Voids 2 4 # Bowel Movements 2 6 - Exam GENERAL DESCRIPTION: An elderly male lying in bed in no distress RESPIRATORY SYSTEM: Unlabored breathing , decreased breath sounds at bases HEART: S1 S2 regular rate and rhythm , ABDOMEN: Soft , mild distention and tenderness EXTREMITIES: No edema feet - Labs CBC & Chem 7: 01/08/24 12:09 01/11/24 03:40 Assessment and Plan (1) Clostridium difficile colitis Current Visit: Yes Status: Acute Code(s): A04.72 - ENTEROCOLITIS D/T CLOSTRIDIUM DIFFICILE, NOT SPCF RECUR SNOMED Code(s): 244289546 (2) Urinary tract infection Current Visit: Yes Status: Acute Code(s): N39.0 - URINARY TRACT INFECTION, SITE NOT SPECIFIED SNOMED Code(s): 12759099 Plan: 1patient presented to hospital predominantly with urinary symptoms of burning and frequency did have a positive UA concerning for symptomatic urinary tract infection likely from multiple gram-negative pathogen. 2patient also dealing with C. difficile colitis for the last 2 months and is currently on a tapering course of oral vancomycin still having symptoms of diarrhea. 3patient with a UTI urine culture positive for Proteus covered with Rocephin 4-patient with persistent diarrhea in this patient who did have 2 negative C. difficile EIA and 1 negative C. difficile PCR repeat CT is suspicious for possible inflammatory bowel disease which may be the case as I would have seen significant elevation of the white count if all this pancolitis was associated with C. difficile colitis patient benefit from colonoscopy and biopsy with a stool culture showing Pseudomonas and question of inflammatory bowel disease with exacerbation, patient is currently on cefepime and Flagyl mention some improvement in her symptoms with currently waiting for the sensitivity on the Pseudomonas determine discharge antibiotics however strongly recommend endoscopy and biopsy to confirm her diagnosis Dictation was produced using [email or web address] dictation software. please excuse any grammatical, word or spelling errors. Time with Patient: Less than 30
[2024-01-13] MEDS: MENTHOL-ZINC OXIDE OINT 113 GM TUBE TOPICAL PRN (15:33)
[2024-01-13 16:08] LABS: Magnesium 2.2 mg/dL (1.5-2.4)
[2024-01-13 16:25] LABS: BUN/Creat Ratio 14.14 Ratio (12.00-20.00); Blood Urea Nitrogen 9.9 mg/dL (9.0-27.0); Calcium 8.4 mg/dL (8.7-10.3); Carbon Dioxide 21.2 mmol/L (21.6-31.8); Chloride 113 mmol/L (96-109); Glucose 100 mg/dL (70-110); Potassium 4.5 mmol/L (3.5-5.5); Sodium 142 mmol/L (135-145)
[2024-01-14 01:15] VITALS: TEMP 98
[2024-01-14 07:53] VITALS: BP 120/74; PULSE 67; RESP 18
[2024-01-14 14:23] LABS: Basophils # (A) 0.07 X 10*3/uL (0.00-0.10); Basophils % (A) 0.9 %; Eosinophils # (A) 0.36 X 10*3/uL (0.04-0.35); Eosinophils % (A) 4.6 %; Lymphocytes # (A) 2.74 X 10*3/uL (0.90-5.00); Lymphocytes % (A) 34.9 %; MCH 28.8 pg (27.0-32.0); MCV 95.8 FL (80.0-97.0); Mean Platelet Volume 8.9 FL (9.5-12.2); Monocytes # (A) 0.91 X 10*3/uL (0.20-1.00); Monocytes % (A) 11.6 %; NRBC Per 100 WBC 0.04 X 10*3/uL (0.00-0.01); Neutrophils # (A) 3.49 X 10*3/uL (1.80-7.70); Neutrophils % (A) 44.6 %; Platelet Count 708 X 10*3/uL (140-440); RBC 3.13 X 10*6/uL (4.10-5.20); RDW 18.8 % (11.5-14.5); WBC 7.84 X 10*3/uL (4.50-10.00)
[2024-01-14 15:08] LABS: BUN/Creat Ratio 17.33 Ratio (12.00-20.00); Blood Urea Nitrogen 10.4 mg/dL (9.0-27.0); Calcium 8.9 mg/dL (8.7-10.3); Carbon Dioxide 22.3 mmol/L (21.6-31.8); Chloride 112 mmol/L (96-109); Glucose 79 mg/dL (70-110); Magnesium 2.3 mg/dL (1.5-2.4); Potassium 4.1 mmol/L (3.5-5.5); Sodium 143 mmol/L (135-145)
--- NOTE | 2024-01-16 14:55 | P.PN ---
Subjective Progress Note Date: 01/14/24 Principal diagnosis: Reason for follow-up C. difficile colitis and UTI Patient is a 53-year-old female with a past medical history significant for fibromyalgia sleep apnea has been dealing with C. difficile colitis for the last 2 months, currently on tapering course of oral vancomycin presented to hospital predominantly with urinary symptoms suspicious for UTI and persistent diarrhea. On today's evaluation that is 01/14/2024, Patient is afebrile patient is currently on room air and denies having any shortness of breath, the patient denies any chest pain or cough, the patient denies any nausea vomiting and did have improvement of abdominal pain and diarrhea has slowed down overall feeling better wants to go home. Patient white count 7.84 creatinine 0.6 stool with Pseudomonas that is sensitive to Cipro Objective - Vital Signs Vital signs: Vital Signs Temp 98.0 F 01/14/24 07:17 Pulse 67 01/14/24 07:17 Resp 18 01/14/24 07:17 BP 120/74 01/14/24 07:17 Pulse Ox 97 01/14/24 07:17 FiO2 Intake & Output 01/13/24 01/14/24 01/14/24 18:59 06:59 18:59 Intake Total 200 1300 Balance 200 1300 Intake: Intake, IV Titration 200 700 Amount Cefepime 2 gm In Sodium 200 100 Chloride 0.9% 100 ml @ 25 mls/hr IVPB Q8HR [facility] Rx# :[id number] Lactated Ringers 1,000 ml 600 @ 50 mls/hr IV .Q20H [facility] Rx#:[id number] Oral 600 Other: Voiding Method Toilet Toilet Toilet # Voids 2 - Exam GENERAL DESCRIPTION: An elderly male lying in bed in no distress RESPIRATORY SYSTEM: Unlabored breathing , decreased breath sounds at bases HEART: S1 S2 regular rate and rhythm , ABDOMEN: Soft , mild distention and tenderness EXTREMITIES: No edema feet - Labs CBC & Chem 7: 01/14/24 08:16 01/14/24 08:16 Labs: Abnormal Lab Results - Last 24 Hours (Table) 01/13/24 Range/Units 07:46 Chloride 113 H (96-109) mmol/L Carbon Dioxide 21.2 L (21.6-31.8) mmol/L Calcium 8.4 L (8.7-10.3) mg/dL Microbiology - Last 24 Hours (Table) 01/07/24 12:07 Stool Culture - Final Stool Pseudomonas aeruginosa Assessment and Plan (1) Clostridium difficile colitis Status: Acute Code(s): A04.72 - ENTEROCOLITIS D/T CLOSTRIDIUM DIFFICILE, NOT SPCF RECUR SNOMED Code(s): 402023301 (2) Urinary tract infection Status: Acute Code(s): N39.0 - URINARY TRACT INFECTION, SITE NOT SPECIFIED SNOMED Code(s): 32484035 Plan: 1patient presented to hospital predominantly with urinary symptoms of burning and frequency did have a positive UA concerning for symptomatic urinary tract infection likely from multiple gram-negative pathogen. 2patient also dealing with C. difficile colitis for the last 2 months and is currently on a tapering course of oral vancomycin still having symptoms of diarrhea. 3patient with a UTI urine culture positive for Proteus covered with cefepime 4-patient with colitis concern for possible inflammatory bowel disease in this patient has clinically responded to cefepime and Flagyl, we will recommend a 10- day course of oral Cipro and Flagyl and strongly advised to follow-up with GI as the patient will need colonoscopy for confirmation of inflammatory bowel disease multiple question concern has been answered in layman terms Dictation was produced using [employer] dictation software. please excuse any grammatical, word or spelling errors. Time with Patient: Less than 30
--- NOTE | 2024-01-16 19:09 | P.DS ---
Providers Date of admission: 01/05/24 18:35 Attending physician: Vero Mills Consults: 01/05/24 18:32 Consult Physician Routine Consulting Provider: Nic Aceves Consult Reason/Comments: cdiff Do you want consulting provider notified?: Yes 01/09/24 12:58 Consult Physician Urgent Consulting Provider: Pamella Lechuga Consult Reason/Comments: Persistent diarrhea despite negative C. difficile, need for colonoscopy bio Do you want consulting provider notified?: Yes Primary care physician: Rogelio Mendez MD Hospital Course: Final Diagnosis Colitis with negative C.Dif. Stool culture shows pseudomonas. Pancolitis with continued diarrhea Recurrent urinary tract infection with urine cultures showing proteus. Chronic migraine maintained on emgality and ubrelvy outaptient Allergic sinusitis claritin has been ordered Metabolic acidosis from hyperchloremia Recent right knee and right hip arthroplasty History of multiple sclerosis on immunosuppression History of sleep apnea Fibromyalgia Anxiety/depression/PTSD Soft tissue neck mass enlarged lymph node vs. other Discharge Disposition Patient is stable for discharge home. Continue on questran and 3 days of oral steroids recommending although patient is refusing both. ID recommending 10 days of oral flagyl and oral cipro on discharge. Patient to follow up with ID in the office in 1 week and follow up with GI Dr. Wero Lechuga in 2 weeks on discharge and will need outpatient colonoscopy. Patient to follow up with ENT for the thyroglossal cyst outpatient as well. Repeat blood work in 2 to 3 days. Follow up with PCP Dr. Rogelio Mendez has an appt made for January 19. Hospital Course This is a pleasant 53-year-old female with history of recurrent urinary tract infections, fibromyalgia, sleep apnea and C. difficile colitis. Patient had presented to the emergency department for concerns of urinary tract infection. States that starting on Friday she started getting some lower pelvic pressure wrapping around to her flank as well as burning with urination. Symptoms persisted and she called her primary care physician who told her to come to the emergency department for further evaluation and possible antibiotics. Patient apparently had knee surgery back in September of this year followed by her urinary tract infection and had been on antibiotics. Following that she was diagnosed with C. difficile colitis about 2 months ago and has seen Dr. Lechuga in the outpatient setting. She is currently on vancomycin 250 mg twice a day. She states that diarrhea may come multiple times during the day usually after eating and can be associated with bloody stools. She currently denies any blood in her urine, states that she is getting lower abdominal and pelvic discomfort as well as flank pain. States that she has burning with urination. Denies any fevers or chills. States appetite has been good. Patient was admitted to the hospital with consults to GI and Infectious disease. Her C.dif was negative x 3 and was changed from oral vancomycin to oral dificid she was treated with IV ceftriaxone. Patient had continued diarrhea and had abdominal pelvis CT which reveals pancolitis and possibility of chrons/ulcerative colitis. Additonally her stool culture showed pseuodomonas. Patient did improve clinically and bowel movements have slowed down and are no longer liquid. Her left lower quadrant abdominal pain improving. ID recommending oral cipro and flagyl for 10 day course on discharge. Patient needs to follow up with GI for outpatient colonoscopy in 2 weeks. Patient also had concerns of swelling on her neck. Thyroid ultrasound reveals indeterminate soft tissue mass under the chin which may represent enlarged lymph node versus thyroglossal duct cyst versus others. 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 Her white blood cell count is normal. Renal function and electrolytes are normal. Hemodynamically she is stable. Will be discharged home. Please see medication reconciliation for a list of current medications. Thank you for allowing us to participate in the care of this patient. The impression and plan of care has been dictated by Drea Durán, Nurse Practitioner as directed. Dr. Jarod MD I have performed a history and physical examination and medical decision making of this patient, discussed the same with the dictator, and agree with the dictators assessment and plan as written, documented as a scribe. Based on total visit time, I have performed more than 50% of this visit. Patient Condition at Discharge: Stable Plan - Discharge Summary Discharge Rx Participant: No New Discharge Prescriptions: New Loratadine [Claritin] 5 mg PO DAILY tab Fluticasone Nasal [place] [Flonase Nasal [place]] 2 spray EA NOSTRIL DAILY ml Ciprofloxacin HCl [Cipro] 500 mg PO BID 10 Days #20 tab metroNIDAZOLE [Flagyl] 500 mg PO TID 10 Days #30 tab Ibuprofen [Motrin] 600 mg PO Q6HR PRN #20 tab PRN Reason: Pain Pantoprazole [Protonix] 40 mg PO DAILY #30 tab Miconazole 2% Vaginal Cream [Monistat 7] 1 applic VAGINAL HS #6 each HYDROcodone/APAP 5-325MG [[place] 5-325] 1 tab PO Q6HR PRN 3 Days #12 tab PRN Reason: Pain Phenazopyridine [Pyridium] 100 mg PO TID 3 Days #9 tablet Cholestyramine (with Sugar) [Questran Packet] 4 gm PO BID@1000,1800 10 Days #20 packet predniSONE [Deltasone] 20 mg PO BID 5 Days #10 tab Menthol-Zinc Oxide Oint [Calmoseptine Ointment] 1 applic TOPICAL BID PRN each PRN Reason: Skin Irritation Continue Topiramate [Topamax] 50 mg PO BID Ocrelizumab [Ocrevus] 600 mg IV DIRECTED DULoxetine HCL [Cymbalta] 60 mg PO DAILY Discontinued Vancomycin HCl [Vancocin HCl] See Taper PO DIRECTED Discharge Medication List Topiramate [Topamax] 50 mg PO BID 06/24/22 [History] DULoxetine HCL [Cymbalta] 60 mg PO DAILY 12/04/23 [History] Ocrelizumab [Ocrevus] 600 mg IV DIRECTED 12/04/23 [History] Cholestyramine (with Sugar) [Questran Packet] 4 gm PO BID@1000,1800 10 Days #20 packet 01/09/24 [Rx] Fluticasone Nasal [place] [Flonase Nasal [place]] 2 spray EA NOSTRIL DAILY ml 01/09/24 [Rx] Loratadine [Claritin] 5 mg PO DAILY tab 01/09/24 [Rx] Phenazopyridine [Pyridium] 100 mg PO TID 3 Days #9 tablet 01/09/24 [Rx] Ciprofloxacin HCl [Cipro] 500 mg PO BID 10 Days #20 tab 01/12/24 [Rx] Ibuprofen [Motrin] 600 mg PO Q6HR PRN #20 tab 01/12/24 [Rx] Pantoprazole [Protonix] 40 mg PO DAILY #30 tab 01/12/24 [Rx] metroNIDAZOLE [Flagyl] 500 mg PO TID 10 Days #30 tab 01/12/24 [Rx] predniSONE [Deltasone] 20 mg PO BID 5 Days #10 tab 01/12/24 [Rx] HYDROcodone/APAP 5-325MG [[place] 5-325] 1 tab PO Q6HR PRN 3 Days #12 tab 01/14/24 [Rx] Menthol-Zinc Oxide Oint [Calmoseptine Ointment] 1 applic TOPICAL BID PRN each 01/14/24 [Rx] Miconazole 2% Vaginal Cream [Monistat 7] 1 applic VAGINAL HS #6 each 01/14/24 [Rx] Follow up Appointment(s)/Referral(s): Rogelio Mendez MD [Primary Care Provider] - 01/20/24 11:15 am Pamella Lechuga MD [STAFF PHYSICIAN] - 2 Weeks (GI follow up to schedule outpatient colonoscopy,we left a message on the placement secretary's voicemail that you needed an appointment please call if you do not hear from them.) Trevor Quesada MD [STAFF PHYSICIAN] - 1 Week (The officed is closed please call and make follow up appointment.) Nic Aceves MD [STAFF PHYSICIAN] - 01/26/24 4:00 pm Ambulatory/Diagnostic Orders: Basic Metabolic Panel [LAB.AMB] Time Frame: 3 Days, Location: None Selected Complete Blood Count w/diff [LAB.AMB] Location: None Selected Patient Instructions/Handouts: Ciprofloxacin (By mouth), Miconazole (Into the vagina), Phenazopyridine (By mouth), Hydrocodone/Acetaminophen (By mouth), Ibuprofen (By mouth), Cholestyramine (By mouth), Prednisone (By mouth), Metronidazole (By mouth), Pantoprazole (By mouth), Urinary Tract Infection in Women (DC), C. Diff (Clostridioides Difficile) Infection (DC) Activity/Diet/Wound Care/Special Instructions: Activity as tolerated. Discharge Disposition: HOME SELF-CARE
== END 2024-01-14 15:36 | disposition home or self-care (01) | DRG 690 ==
LOC: EC 14:42 → 6NMEDSUR 18:34 → OBSVTOIN 18:35 → 6NMEDSUR 01-06 03:19 → 1SOBS 01-06 10:06 → 5NMEDONC 01-08 16:12
PROVIDERS: ADMIT Internal Medicine; ATTEND Internal Medicine
DX: N39.0 Urinary tract infection, site not specified (principal); A04.72 Enterocolitis due to Clostridium difficile, not specified as recurrent; D84.9 Immunodeficiency, unspecified; B96.5 Pseudomonas (aeruginosa) (mallei) (pseudomallei) as the cause of diseases classified elsewhere; E27.8 Other specified disorders of adrenal gland; E87.8 Other disorders of electrolyte and fluid balance, not elsewhere classified; F32.A Depression, unspecified; F41.9 Anxiety disorder, unspecified; F43.10 Post-traumatic stress disorder, unspecified; G35 Multiple sclerosis; G43.909 Migraine, unspecified, not intractable, without status migrainosus; J30.9 Allergic rhinitis, unspecified; K76.0 Fatty (change of) liver, not elsewhere classified; M17.10 Unilateral primary osteoarthritis, unspecified knee; M79.7 Fibromyalgia; Z96.641 Presence of right artificial hip joint; Z96.651 Presence of right artificial knee joint; Z79.60 Long term (current) use of unspecified immunomodulators and immunosuppressants; Z79.899 Other long term (current) drug therapy; Z87.440 Personal history of urinary (tract) infections
CPT/HCPCS: 36415; 70491; 71045; 74176; 74177; 76536; 80048; 80053; 80170; 81001; 82150; 82565; 83605; 83690; 83735; 85025; 85610; 85730; 87040; 87045; 87046; 87077; 87086; 87186; 87324; 87493; 96361; 96365; 96366; 96375; 96376; 99285

== ENCOUNTER 2024-03-12 11:04 | Day surgery (SDC) | payer MEDICARE, OTHER ==
[2024-03-09 15:58] VITALS: BMI 38.5
[~2024-03-12 11:04] MED LIST changes: +LACTATED RINGERS 1,000 ML IV SCH; -MIDAZOLAM 2 MG/2 ML VIAL IV PRN; -TRANEXAMIC 1,000 MG/100ML-NACL 1,000 MG in SALINE 1 100ML.BAG IVPB PRN
[2024-03-12] MEDS: IV FLUID CONTINUATION 1,000 ML IV ONE (12:25)
[2024-03-12 12:31] VITALS: RESP 18; TEMP 97.1
[2024-03-12] MEDS ORDERED: PROPOFOL 10 MG/ML 20 ML VIAL IV ONE (13:06)
--- NOTE | 2024-03-12 13:31 | P.PCN ---
Date of Procedure: 03/12/24 Procedure(s) Performed: BRIEF HISTORY: Patient is a 53-year-old pleasant White female scheduled for an elective colonoscopy as a part of Evaluation of chronic diarrhea since October of this year. She had an episode of C. diff colitisIn October of this year and was treated with Oral vancomycin. Subsequently she has recurrent diarrhea and was treated with the second of the vancomycin for 6 weeks. She continued to have persistent diarrhea and C. diff was done 3 different times last month which was negative.. Since then she is been having severe diarrhea with 5-6 loose watery bowel movements daily with occasional blood or mucus in the stool. PROCEDURE PERFORMED: Colonoscopy With random biopsy. PREOPERATIVE DIAGNOSIS: Chronic diarrhea for months duration. IV sedation per Anesthesia. PROCEDURE: After informed consent was obtained, the patient, was brought into the endoscopy unit. IV sedation was administered by Anesthesia under continuous monitoring. Digital rectal examination was normal. Initially the Olympus CF-160 flexible video colonoscope was then inserted in the rectum, gradually advanced into the cecum without any difficulty. Careful examination was performed as the scope was gradually being withdrawn. Ileocecal valve and the appendiceal orifice were visualized and appeared normal. Prep was excellent.Terminal ileum was intubated and 20 cm visualized and appeared normal. Mucosa of the cecum, ascending colon, transverse colon, descending colon, sigmoid colon, Had severe colitis with mucosal erythema, friability, and his bloating and severe cobblestoning of the mucosa and multiple biopsies were done from this areas. Mucosa of the rectum appeared normal. Retroflexion was performed in the rectum and no lesions were seen. The patient tolerated the procedure well. IMPRESSION: Diffuse colitis with mucosal erythema, friability, severe cobblestoning involving the entire colon except the rectum status post multiple biopsies to evaluate for inflammatory bowel disease Terminal ileum appeared normal RECOMMENDATIONS: Findings of this examination were discussed with the patient as well as a family. She was advised to follow with the biopsy results. She'll be seen in office next week.
[2024-03-12 13:49] VITALS: BP 105/71; PULSE 77
== END 2024-03-12 14:19 | disposition home or self-care (01) ==
LOC: ORWHC2ENDO 11:04
PROVIDERS: ATTEND Internal Medicine Gastroenterology
DX: G47.33 Obstructive sleep apnea (adult) (pediatric) (principal); J84.112 Idiopathic pulmonary fibrosis; F41.9 Anxiety disorder, unspecified; F32.A Depression, unspecified; K21.9 Gastro-esophageal reflux disease without esophagitis; Z91.048 Other nonmedicinal substance allergy status; Z88.2 Allergy status to sulfonamides; Z79.2 Long term (current) use of antibiotics; Z79.899 Other long term (current) drug therapy
CPT/HCPCS: 88305; 45380; J2704

== ENCOUNTER → 2024-06-21 | Outpatient (CLI) | payer MEDICARE, OTHER | END | disposition home or self-care (01) | LOC: LABWHC1 10:49 | PROVIDERS: ATTEND Psychiatry & Neurology Neurology | DX: I49.8 Other specified cardiac arrhythmias (principal) | CPT/HCPCS: 36415; 93005 ==

== ENCOUNTER 2024-12-17 18:28 | Emergency (ER) | payer MEDICARE, OTHER ==
[2024-12-17 18:35] VITALS: RESP 18; TEMP 98.1
--- NOTE | 2024-12-17 19:03 | ED ---
General Adult HPI - General Chief complaint: Urogenital Stated complaint: urogenital Time Seen by Provider: 12/17/24 18:40 Source: patient Mode of arrival: ambulatory Limitations: no limitations - History of Present Illness Initial comments: Dictation was produced using [employer] dictation software. please excuse any grammatical, word or spelling errors. Chief Complaint: 54-year-old female with CVA pain, suprapubic pain and dysuria History of Present Illness: 54-year-old female with multiple days of urinary symptoms including flank pain. Patient states she was seen and evaluated during the early onset of her symptoms had urine studies that were negative. She was told to follow-up with her urologist. They have quickest appointment should get with urologist was in February. Patient states she has urinary urgency, frequency, dysuria, flank pain. Denies any fever, chills or night sweats. The ROS documented in this emergency department record has been reviewed and confirmed by me. Those systems with pertinent positive or negative responses h ave been documented in the HPI. All other systems are other negative and/or noncontributory. - Related Data Home Medications Medication Instructions Recorded Confirmed Topiramate [Topamax] 50 mg PO BID 06/24/22 03/12/24 DULoxetine HCL [Cymbalta] 60 mg PO DAILY 12/04/23 03/12/24 Cyclobenzaprine [Flexeril] 1 tab PO TID 03/09/24 03/12/24 Previous Rx's Medication Instructions Recorded Phenazopyridine [Pyridium] 100 mg PO TID 3 Days #9 tablet 01/09/24 Ciprofloxacin HCl [Cipro] 500 mg PO BID 10 Days #20 tab 01/12/24 Pantoprazole [Protonix] 40 mg PO DAILY #30 tab 01/12/24 HYDROcodone/APAP 5-325MG [[place] 1 tab PO Q6HR PRN 3 Days #12 tab 01/14/24 5-325] Cefpodoxime Proxetil [Vantin] 200 mg PO Q12HR 10 Days #20 tab 12/17/24 Allergies Allergy/AdvReac Type Severity Reaction Status Date / Time nickel Allergy Rash/Hives Verified 12/17/24 18:35 Sulfa (Sulfonamide Allergy Rash/Hives Verified 12/17/24 18:35 Antibiotics) Review of Systems ROS Statement: Those systems with pertinent positive or pertinent negative responses have been documented in the HPI. ROS Other: All systems not noted in ROS Statement are negative. Past Medical History Past Medical History: Fibromyalgia, GERD/Reflux, Sleep Apnea/CPAP/BIPAP Additional Past Medical History / Comment(s): vertigo, ms, migraines. cdiff, last time 09/2023 cpap History of Any Multi-Drug Resistant Organisms: C-DIFF Date of last positivie culture/infection: 10/2023 MDRO Source:: diarrhea Past Surgical History: Hysterectomy, Joint Replacement, Orthopedic Surgery Additional Past Surgical History / Comment(s): lower back and neck, lft knee s cope , right knee scope 2022, replaced bilateral knees Past Anesthesia/Blood Transfusion Reactions: No Reported Reaction Additional Past Anesthesia/Blood Transfusion Reaction / Comment(s): no blood transfusion Past Psychological History: Anxiety, Depression, PTSD Smoking Status: Vaper Past Alcohol Use History: None Reported Past Drug Use History: None Reported - Past Family History Father Additional Family Medical History / Comment(s): Clotting problem per patient. General Exam - General Exam Comments Initial Comments: PHYSICAL EXAM: General Impression: Alert and oriented x3, not in acute distress HEENT: Normocephalic atraumatic, extra-ocular movements intact, pupils equal and reactive to light bilaterally, mucous membranes moist. Cardiovascular: Heart regular rate and rhythm Chest: Able to complete full sentences, no retractions, no tachypnea Abdomen: abdomen soft, n suprapubic palpatory pain, non-distended, no organomegaly Musculoskeletal: Pulses present and equal in all extremities, no peripheral edema, positive CVA tenderness Motor: no focal deficits noted Neurological: CN II-XII grossly intact, no focal motor or sensory deficits noted Skin: Intact with no visualized rashes Psych: Normal affect and mood Limitations: no limitations Course Vital Signs 12/17/24 18:32 Temperature 98.1 F Pulse Rate 106 H Respiratory 18 Rate Blood Pressure 123/85 O2 Sat by Pulse 96 Oximetry Medical Decision Making - Medical Decision Making Was pt. sent in by a medical professional or institution (, PA, PETROLEUM REFINERY OPERATOR, urgent care, hospital, or residential...) When possible be specific @ -No Did you speak to anyone other than the patient for history (EMS, parent, family, police, friend...)? What history was obtained from this source @ -No Did you review nursing and triage notes (agree or disagree)? Why? @ -I reviewed and agree with nursing and triage notes Were old charts reviewed (outside hosp., previous admission, EMS record, old EKG, old radiological studies, urgent care reports/EKG's, residential records)? Report findings @ -No old charts were reviewed Differential Diagnosis (chest pain, altered mental status, abdominal pain women, abdominal pain men, vaginal bleeding, musculoskeletal, weakness, fever, dyspnea, syncope, headache, dizziness, GI bleed, back pain, seizure, CVA, palpatations, mental health)? @ -Hemorrhagic cystitis, urethritis, pyelonephritis EKG interpreted by me (3pts min.). @ -None done X-rays interpreted by me (1pt min.). @ -None done CT interpreted by me (1pt min.). @ -None done U/S interpreted by me (1pt. min.). @ -None done What testing was considered but not performed or refused? (CT, X-rays, U/S, labs)? Why? @ -None What meds were considered but not given or refused? Why? @ -None Was smoking cessation discussed for >3mins.? @ -No Were there social determinants of health that impacted care today? How? (Homelessness, low income, unemployed, alcoholism, drug addiction, transportation, low edu. Level, literacy, decrease access to med. care, custodial, rehab)? @ -No Was there de-escalation of care discussed even if they declined (Discuss DNR or withdrawal of care, Hospice)? DNR status @ -No What co-morbidities impacted this encounter? (DM, HTN, Smoking, COPD, CAD, Cancer, CVA, ARF, Chemo, Hep., AIDS, mental health diagnosis, sleep apnea, morbid obesity)? @ -None Was patient admitted / discharged? Hospital course, mention meds given and route, prescriptions, significant lab abnormalities, going to OR and other pertinent info. @ -54-year-old female with urinary symptoms for several days. Vital signs stab le. Patient afebrile. Laboratory evaluation obtained. No leukocytosis. Metabolic panel is negative. Urinalysis shows hemorrhagic cystitis. She does have CVA tenderness raising likelihood of pyelonephritis. Patient given dose of ceftriaxone. Patient requesting discharge. She is well-appearing afebrile and in no acute distress. Patient given strict return precautions. Prescribed Keflex. Did you discuss the management of the patient with other professionals (professionals i.e. , PA, PETROLEUM REFINERY OPERATOR, lab, RT, psych nurse, web content & social media manager, electrical parts reconditioner, teacher, head correction officer, case fitter)? Give summary @ -No Was critical care preformed (if so, how long)? @ -No Undiagnosed new problem with uncertain prognosis? @ -No Drug Therapy requiring intensive monitoring for toxicity (Heparin, Nitro, Insulin, Cardizem)? @ -No Were any procedures done? @ -No Diagnosis/symptom? Acute, or Chronic, or Acute on Chronic? Uncomplicated (without systemic symptoms) or Complicated (systemic symptoms)? @ -Pyelonephritis Side effects of treatment? @ -No Exacerbation, Progression, or Severe Exacerbation? @ -No Poses a threat to life or bodily function? How? (Chest pain, [place], [place], pneumonia, PE, COPD, DKA, ARF, appy, cholecystitis, CVA, Diverticulitis, Homicidal, Suicidal, threat to staff... and all critical care pts) @ -yes - Lab Data Result diagrams: 12/17/24 20:00 12/17/24 20:00 Lab Results 12/17/24 12/17/24 12/17/24 Range/Units 18:59 20:00 20:00 WBC 8.03 (4.50-10.00) 10*3/uL RBC 4.75 (4.10-5.20) 10*6/uL Hgb 11.8 L (12.0-15.0) g/dL Hct 37.5 (37.2-46.3) % MCV 78.9 L (80.0-97.0) fL MCH 24.8 L (27.0-32.0) pg MCHC 31.5 L (32.0-37.0) g/dL Plt Count 414 (140-440) 10*3/uL MPV 9.3 L (9.5-12.2) fL Immature Gran % (Auto) 0.4 % Neutrophils % 61.8 % Lymphocytes % 24.8 % Monocytes % 9.2 % Eosinophils % 2.9 % Basophils % 0.9 % Immature Gran # 0.03 (0.00-0.04) 10*3/uL Neutrophils # 4.97 (1.80-7.70) 10*3/uL Lymphocytes # 1.99 (0.90-5.00) 10*3/uL Monocytes # 0.74 (0.20-1.00) 10*3/uL Eosinophils # 0.23 (0.04-0.35) 10*3/uL Basophils # 0.07 (0.00-0.10) 10*3/uL Sodium 139 (137-145) mmol/L Potassium 3.7 (3.5-5.1) mmol/L Chloride 106 (98-107) mmol/L Carbon Dioxide 20 L (22-30) mmol/L Anion Gap 13 mmol/L BUN 9 (7-17) mg/dL Creatinine 0.71 (0.52-1.04) mg/dL Est GFR (CKD-EPI)AfAm >90 (>60 ml/min/1.73 sqM) Est GFR (CKD-EPI)NonAf >90 (>60 ml/min/1.73 sqM) Glucose 80 (74-99) mg/dL Calcium 10.0 (8.4-10.2) mg/dL Total Bilirubin 0.3 (0.2-1.3) mg/dL AST 24 (14-36) U/L ALT 16 (4-34) U/L Alkaline Phosphatase 103 (38-126) U/L Total Protein 7.0 (6.3-8.2) g/dL Albumin 4.2 (3.5-5.0) g/dL Lipase 118 (23-300) U/L Urine Color [place] Urine Appearance Slightly Cloudy H (Clear) Urine RBC >182 H (0-5) /hpf Urine WBC >182 H (0-5) /hpf Ur Squamous Epith Cells 3 (0-4) /hpf Urine Bacteria Rare H (None) /hpf Urine Mucus Occasional H (None) /hpf Disposition Clinical Impression: Pyelonephritis Disposition: HOME SELF-CARE Condition: Fair Instructions (If sedation given, give patient instructions): Urinary Tract Infection in Women (ED) Prescriptions: Cefpodoxime Proxetil [Vantin] 200 mg PO Q12HR 10 Days #20 tab Is patient prescribed a controlled substance at d/c from ED?: No Referrals: Rogelio Mendez MD [Primary Care Provider] - 1-2 days Time of Disposition: 21:36
[2024-12-17 19:38] LABS: Bacteria,Urine Rare /hpf; Mucus,Urine Occasional /hpf; RBC,Urine >182 /hpf (0-5); Squamous Epithelial Cell,Urine 3 /hpf (0-4); WBC,Urine >182 /hpf (0-5)
[2024-12-17 19:40] LABS: Appearance,Urine Slightly Cloudy (Clear); Color,Urine Orange
[2024-12-17 20:04] LABS: Basophils # (A) 0.07 10*3/uL (0.00-0.10); Basophils % (A) 0.9 %; Eosinophils # (A) 0.23 10*3/uL (0.04-0.35); Eosinophils % (A) 2.9 %; HCT 37.5 % (37.2-46.3); HGB 11.8 g/dL (12.0-15.0); Lymphocytes # (A) 1.99 10*3/uL (0.90-5.00); Lymphocytes % (A) 24.8 %; MCH 24.8 pg (27.0-32.0); MCHC 31.5 g/dL (32.0-37.0); MCV 78.9 fL (80.0-97.0); Mean Platelet Volume 9.3 fL (9.5-12.2); Monocytes # (A) 0.74 10*3/uL (0.20-1.00); Monocytes % (A) 9.2 %; Neutrophils # (A) 4.97 10*3/uL (1.80-7.70); Neutrophils % (A) 61.8 %; Platelet Count 414 10*3/uL (140-440); RBC 4.75 10*6/uL (4.10-5.20); WBC 8.03 10*3/uL (4.50-10.00)
[2024-12-17 20:20] LABS: ALT 16 U/L (4-34); AST 24 U/L (14-36); African American GFR (CKD) >90 (>60 ml/min/1.73 sqM); Albumin 4.2 g/dL (3.5-5.0); Alkaline Phosphatase 103 U/L (38-126); Anion Gap 13 mmol/L; Blood Urea Nitrogen 9 mg/dL (7-17); Carbon Dioxide 20 mmol/L (22-30); Chloride 106 mmol/L (98-107); Glucose 80 mg/dL (74-99); Lipase 118 U/L (23-300); Non-African American GFR(CKD) >90 (>60 ml/min/1.73 sqM); Potassium 3.7 mmol/L (3.5-5.1); Sodium 139 mmol/L (137-145); Total Bilirubin 0.3 mg/dL (0.2-1.3)
[2024-12-17 21:47] VITALS: BP 119/77; PULSE 89
[2024-12-17] MEDS: cefTRIAXone IN SWFI 1,000 MG/10 ML SYRINGE IVP STA (21:49)
== END 2024-12-17 21:57 | disposition home or self-care (01) ==
LOC: EC 18:28
DX: N12 Tubulo-interstitial nephritis, not specified as acute or chronic (principal); F17.290 Nicotine dependence, other tobacco product, uncomplicated; Z88.2 Allergy status to sulfonamides; Z88.8 Allergy status to other drugs, medicaments and biological substances
CPT/HCPCS: 36415; 80053; 83690; 85025; 81001; 87086; 99283; 96374; J0696